=== PATIENT | female | born 1945 | race Caucasian/White ===

== ENCOUNTER → 2016-09-24 | Outpatient (CLI) | payer MEDICARE | END | disposition home or self-care (01) | LOC: LABWHC1 12:08 | PROVIDERS: ATTEND Internal Medicine | DX: E03.9 Hypothyroidism, unspecified (principal) | CPT/HCPCS: 36415; 84439; 84443 ==

== ENCOUNTER → 2016-11-28 | Outpatient (CLI) | payer MEDICARE ==
[2016-11-28 11:16] LABS: CH 29.7; CHCM 32.2; HCT 39.9 % (34.0-46.0); HDW 2.15; HGB 12.5 gm/dL (11.4-16.0); MCH 29.1 pg (25.0-35.0); MCHC 31.4 g/dL (31.0-37.0); MCV 92.6 fL (80.0-100.0); Mean Platelet Volume 6.2; RBC 4.31 m/uL (3.80-5.40); RDW 12.5 % (11.5-15.5); WBC 9.3 k/uL (3.8-10.6)
[2016-11-28 11:38] LABS: ALT 28 U/L (9-52); AST 24 U/L (14-36); Alkaline Phosphatase 81 U/L (38-126); Anion Gap 5 mmol/L; Blood Urea Nitrogen 12 mg/dL (7-17); Calcium 9.7 mg/dL (8.4-10.2); Carbon Dioxide 30 mmol/L (22-30); Chloride 107 mmol/L (98-107); Glucose 84 mg/dL (74-99); Non-African American GFR(MDRD) >60 (>60 ml/min/1.73 sqM); Potassium 5.2 mmol/L (3.5-5.1); Sodium 142 mmol/L (137-145); Total Bilirubin 0.4 mg/dL (0.2-1.3)
[2016-11-28 11:56] LABS: Appearance,Urine Clear (Clear); Bilirubin,Urine Negative (Negative); Glucose,Urine (UA) Negative (Negative); Ketones,Urine Negative (Negative); Leukocyte Esterase,Urine Large (Negative); Mucus,Urine Rare /hpf; Nitrite,Urine Negative (Negative); PH, Urine 6.5 (5.0-8.0); Particle Count 2306; Protein,Urine Negative (Negative); RBC,Urine 12 /hpf (0-5); Specific Gravity,Urine 1.008 (1.001-1.035); Squamous Epithelial Cell,Urine 1 /hpf (0-4); UA Billing (MACRO vs. MICRO) MICRO; Urobilinogen,Urine <2.0 mg/dL (<2.0); WBC,Urine 46 /hpf (0-5)
== END | disposition home or self-care (01) ==
LOC: LABWHC1 10:48
PROVIDERS: ATTEND Internal Medicine
DX: R53.82 Chronic fatigue, unspecified (principal); E03.9 Hypothyroidism, unspecified; R35.0 Frequency of micturition
CPT/HCPCS: 36415; 80053; 81001; 84439; 84443; 85027

== ENCOUNTER → 2017-01-31 | Outpatient (CLI) | payer MEDICARE ==
[2017-01-31 07:38] LABS: Blood Urea Nitrogen 12 mg/dL (7-17); Non-African American GFR(MDRD) >60 (>60 ml/min/1.73 sqM)
--- NOTE | 2017-01-31 09:21 | CT ---
EXAMINATION TYPE: CT abdomen pelvis wo/w con DATE OF EXAM: 01/31/2017 8:49 AM COMPARISON: NONE HISTORY: Hydronephrosis and Calculus of Kidney CT DLP: 597.30 mGycm CONTRAST: CT scan of the abdomen and pelvis is performed without and with Oral Contrast and without and with IV Contrast, patient injected with 100 ml mL of Omnipaque 300. FINDINGS: LUNG BASES-: No visible nodule. No infiltrate. Fixed hiatal hernia noted. LIVER/GB: No calcified gallstones. No space occupying hepatic lesion. Biliary tree is of normal ca liber. PANCREAS: No inflammation. No distinct mass. SPLEEN: No splenic enlargement. No lesion seen. ADRENALS: No nodule. No thickening. KIDNEYS/BLADDER: No hydronephrosis. Staghorn type calculus mid pole of the left kidney measures 1.4 cm in greatest dimension. There is no evidence for obstruction. No disctinct renal mass. Urinary blad waleska grossly unremarkable. BOWEL: Normal appendix. Normal bowel caliber. No inflammation. Moderate fecal stasis noted. GENITAL ORGANS: Hysterectomy changes identified. LYMPH NODES: No greater than 1cm abdominal or pelvic lymph nodes are appreciated. AORTA: No significant abnormality. OSSEOUS STRUCTURES: No significant abnormality is seen. OTHER: No significant additional abnormality is seen. IMPRESSION: 1. Nonobstructing staghorn calculus left kidney. 2. Fixed hiatal hernia. 3 moderate fecal stasis.
== END ==
LOC: RADCTMAIN 06:38
PROVIDERS: ATTEND Urology
DX: N20.0 Calculus of kidney (principal); K44.9 Diaphragmatic hernia without obstruction or gangrene
CPT/HCPCS: 82565; 84520; 74178; 36415; Q9967

== ENCOUNTER → 2017-02-18 | Outpatient (CLI) | payer MEDICARE ==
[2017-02-18 14:23] LABS: Anion Gap 9 mmol/L; Blood Urea Nitrogen 9 mg/dL (7-17); Carbon Dioxide 23 mmol/L (22-30); Chloride 109 mmol/L (98-107); Non-African American GFR(MDRD) >60 (>60 ml/min/1.73 sqM); Potassium 3.8 mmol/L (3.5-5.1); Sodium 141 mmol/L (137-145)
== END | disposition home or self-care (01) ==
LOC: LABWHC1 13:53
PROVIDERS: ATTEND Internal Medicine
DX: E03.9 Hypothyroidism, unspecified (principal); E87.5 Hyperkalemia; N20.0 Calculus of kidney
CPT/HCPCS: 36415; 80051; 82565; 84439; 84443; 84520

== ENCOUNTER → 2017-03-04 | Outpatient (CLI) | payer MEDICARE ==
[2017-03-04 10:55] LABS: EKG EKG PERFORMED
[2017-03-04 11:30] LABS: Blood Urea Nitrogen 11 mg/dL (7-17); Non-African American GFR(MDRD) >60 (>60 ml/min/1.73 sqM)
[2017-03-04 11:33] LABS: CHCM 32.7; HGB 12.9 gm/dL (11.4-16.0); MCH 28.9 pg (25.0-35.0); MCHC 31.4 g/dL (31.0-37.0); MCV 92.2 fL (80.0-100.0); Mean Platelet Volume 6.5; RBC 4.44 m/uL (3.80-5.40); RDW 12.5 % (11.5-15.5); WBC 9.1 k/uL (3.8-10.6); WBC (Perox) 8.95
[2017-03-04 14:22] LABS: Add Differential Manual Differential
[2017-03-04 14:25] LABS: Nucleated Red Blood Cells 0 /100 WBC (0-0); Total Cells Counted 200
== END | disposition home or self-care (01) ==
LOC: LABWHC1 10:48
PROVIDERS: ATTEND Urology
DX: N20.0 Calculus of kidney (principal)
CPT/HCPCS: 36415; 82565; 84520; 85025; 93005

== ENCOUNTER → 2017-03-15 | Outpatient (CLI) | payer MEDICARE ==
--- NOTE | 2017-03-15 09:39 | XR ---
EXAMINATION TYPE: XR abdomen 1V , ONE VIEW DATE OF EXAM ORDERED: 03/15/2017 HISTORY: N20.0 L renal calculus. COMPARISON: Previous study dated 04/06/2014. FINDINGS: Calculus overlying the mid polar region of the left kidney is again identified. It measure s 5.8 mm. Previously measured 4.4 mm. No other definite renal calculi are seen. There is a stable phl eboliths within the right hemipelvis. There is an injection granuloma overlying the iliac spine on th e right. IMPRESSION: LEFT-SIDED NEPHROLITHIASIS.
== END | disposition home or self-care (01) ==
LOC: RADXRMAIN 09:17
PROVIDERS: ATTEND Urology
DX: N20.0 Calculus of kidney (principal)
CPT/HCPCS: 74000

== ENCOUNTER → 2017-06-21 | Outpatient (CLI) | payer MEDICARE ==
[2017-06-21 10:28] LABS: CH 27.5; CHCM 31.9; HCT 37.9 % (34.0-46.0); HGB 12.5 gm/dL (11.4-16.0); MCH 28.5 pg (25.0-35.0); MCHC 32.9 g/dL (31.0-37.0); MCV 86.7 fL (80.0-100.0); Mean Platelet Volume 6.4; RBC 4.37 m/uL (3.80-5.40); RDW 12.2 % (11.5-15.5); WBC 7.5 k/uL (3.8-10.6)
[2017-06-21 10:48] LABS: ALT 28 U/L (9-52); AST 21 U/L (14-36); Alkaline Phosphatase 94 U/L (38-126); Anion Gap 9 mmol/L; Blood Urea Nitrogen 11 mg/dL (7-17); Calcium 9.6 mg/dL (8.4-10.2); Carbon Dioxide 26 mmol/L (22-30); Chloride 106 mmol/L (98-107); Cholesterol 195 mg/dL (<200); Glucose 76 mg/dL (74-99); HDL Cholesterol 60 mg/dL (40-60); Non-African American GFR(MDRD) >60 (>60 ml/min/1.73 sqM); Potassium 4.5 mmol/L (3.5-5.1); Sodium 141 mmol/L (137-145); Total Bilirubin 0.4 mg/dL (0.2-1.3)
== END | disposition home or self-care (01) ==
LOC: LABWHC1 09:05
PROVIDERS: ATTEND Internal Medicine
DX: Z00.00 Encounter for general adult medical examination without abnormal findings (principal); E78.2 Mixed hyperlipidemia; E03.9 Hypothyroidism, unspecified; K21.0 Gastro-esophageal reflux disease with esophagitis
CPT/HCPCS: 36415; 80053; 80061; 84439; 84443; 85027

== ENCOUNTER → 2018-01-02 | Outpatient (CLI) | payer MEDICARE ==
[2018-01-02 09:33] LABS: HCT 38.2 % (34.0-46.0); MCH 28.3 pg (25.0-35.0); MCHC 31.4 g/dL (31.0-37.0); Mean Platelet Volume 6.8; Platelet Count 400 k/uL (150-450); RBC 4.25 m/uL (3.80-5.40); RDW 12.6 % (11.5-15.5); WBC 7.7 k/uL (3.8-10.6)
[2018-01-02 09:56] LABS: ALT 23 U/L (9-52); AST 25 U/L (14-36); Albumin 4.1 g/dL (3.5-5.0); Alkaline Phosphatase 92 U/L (38-126); Anion Gap 11 mmol/L; Blood Urea Nitrogen 14 mg/dL (7-17); Calcium 9.7 mg/dL (8.4-10.2); Carbon Dioxide 29 mmol/L (22-30); Chloride 104 mmol/L (98-107); Glucose 87 mg/dL (74-99); Potassium 4.6 mmol/L (3.5-5.1); Sodium 144 mmol/L (137-145); Total Bilirubin 0.4 mg/dL (0.2-1.3); Total Protein 6.8 g/dL (6.3-8.2)
[2018-01-02 10:06] LABS: T4, Free (Free Thyroxine) 0.91 ng/dL (0.78-2.19)
== END | disposition home or self-care (01) ==
LOC: LABWHC1 09:02
PROVIDERS: ATTEND Internal Medicine
DX: E03.9 Hypothyroidism, unspecified (principal); R53.82 Chronic fatigue, unspecified
CPT/HCPCS: 36415; 80053; 84439; 84443; 85027

== ENCOUNTER → 2018-07-11 | Outpatient (CLI) | payer MEDICARE ==
[2018-07-11 11:44] LABS: HCT 39.8 % (34.0-46.0); HGB 12.8 gm/dL (11.4-16.0); MCH 29.5 pg (25.0-35.0); MCHC 32.2 g/dL (31.0-37.0); MCV 91.8 fL (80.0-100.0); Mean Platelet Volume 6.2; Platelet Count 395 k/uL (150-450); RBC 4.34 m/uL (3.80-5.40); RDW 12.3 % (11.5-15.5); WBC 10.2 k/uL (3.8-10.6)
[2018-07-11 15:45] LABS: Albumin 4.5 g/dL (3.80-4.90); Albumin/Globulin Ratio 2.05 (1.20-2.10); Anion Gap 9.6 mmol/L (4.00-12.00); Calcium 9.5 mg/dL (8.7-10.3); Carbon Dioxide 24.4 mmol/L (21.6-31.8); Globulin 2.2 g/dL (2.1-3.7); LDL Cholesterol,Calculated 118.6 mg/dL (0.0-131.0); Potassium 4.1 mmol/L (3.5-5.5); Total Bilirubin 0.5 mg/dL (0.2-1.2); Total Protein 6.7 g/dL (6.2-8.2); VLDL Calculation 27.4 mg/dL (5.00-40.00)
[2018-07-11 15:55] LABS: T4, Free (Free Thyroxine) 1.3 ng/dL (0.80-1.80)
--- NOTE | 2018-07-11 16:31 | XR ---
EXAMINATION TYPE: XR chest 2V DATE OF EXAM: 07/11/2018 COMPARISON: None INDICATION: Cough TECHNIQUE: Frontal and lateral views of the chest are obtained. FINDINGS: The heart size is normal. The pulmonary vasculature is normal. The lungs are clear. IMPRESSION: 1. No acute pulmonary process.
== END ==
LOC: LABWHC1 10:22
PROVIDERS: ATTEND Internal Medicine
DX: R05 Cough (principal); E78.2 Mixed hyperlipidemia; E03.9 Hypothyroidism, unspecified; K21.0 Gastro-esophageal reflux disease with esophagitis; Z00.00 Encounter for general adult medical examination without abnormal findings
CPT/HCPCS: 36415; 71046; 80053; 80061; 84439; 85027

== ENCOUNTER → 2018-07-15 | Outpatient (CLI) | payer MEDICARE | END | disposition home or self-care (01) | LOC: LABWHC1 15:13 | PROVIDERS: ATTEND Internal Medicine | DX: Z53.9 Procedure and treatment not carried out, unspecified reason (principal) ==

== ENCOUNTER → 2018-07-17 | Outpatient (CLI) | payer MEDICARE | END | disposition home or self-care (01) | LOC: LABWHC1 15:33 | PROVIDERS: ATTEND Internal Medicine | DX: Z00.00 Encounter for general adult medical examination without abnormal findings (principal); E78.2 Mixed hyperlipidemia; E03.9 Hypothyroidism, unspecified; K21.0 Gastro-esophageal reflux disease with esophagitis; R05 Cough | CPT/HCPCS: 36415; 82272 ==

== ENCOUNTER → 2018-09-29 | Outpatient (CLI) | payer MEDICARE ==
--- NOTE | 2018-10-04 10:45 | MM ---
Reason for exam: screening (asymptomatic). Last mammogram was performed 3 years and 6 months ago. History: Patient is postmenopausal. Family history of breast cancer in aunt at age 70. MG 3D Screening Mammo W/Cad Bilateral CC and MLO view(s) were taken. Prior study comparison: April 07, 2015, bilateral MG screening mammo w CAD. April 06, 2014, bilateral MG screening mammo w CAD. There are scattered fibroglandular densities. There are benign round vascular bilateral breast calcifications. No discrete abnormality. ASSESSMENT: Benign, BI-RAD 2 RECOMMENDATION: Routine screening mammogram of both breasts in 1 year.
== END | disposition home or self-care (01) ==
LOC: RADMAMWWP 15:05
PROVIDERS: ATTEND Internal Medicine
DX: Z12.31 Encounter for screening mammogram for malignant neoplasm of breast (principal)
CPT/HCPCS: 77063; 77067

== ENCOUNTER → 2019-02-10 | Outpatient (CLI) | payer MEDICARE ==
[2019-02-10 16:04] LABS: LDL Cholesterol,Calculated 55.6 mg/dL (0.0-131.0); VLDL Calculation 24.4 mg/dL (5.00-40.00)
== END ==
LOC: LABWHC1 10:57
PROVIDERS: ATTEND Internal Medicine
DX: E78.2 Mixed hyperlipidemia (principal)
CPT/HCPCS: 36415; 80061; 82550; 84450; 84460

== ENCOUNTER → 2019-02-11 | Outpatient (CLI) | payer MEDICARE ==
--- NOTE | 2019-02-11 10:24 | BD ---
EXAMINATION TYPE: Axial Bone Density DATE OF EXAM: 02/11/2019 COMPARISON: NONE CLINICAL HISTORY: Postmenopausal female. Osteoporosis screening. Height: 4' 9 Weight: 109 FRAX RISK QUESTIONS: Family History (Parent hip fracture): y Secondary Osteoporosis: 3. Menopause before 45: y RISK FACTORS HISTORY OF: Family History of Osteoporosis: y Postmenopausal woman: y Lost more than 2 inches in height since high school: y MEDICATIONS: Thyroid Medications: Which medication: Synthroid How Lon year Additional Medications: cholesterol Additional History: EXAM MEASUREMENTS: Bone mineral densitometry was performed using the [employer] System. Bone mineral density as measured about the Lumbar spine is: ----- L1-L4(G/cm2): 0.864 T Score Values are as follows: ----- L2: -3.1 ----- L3: -2.5 ----- L4: -2.0 ----- L1-L4: -2.6 Bone mineral density about the R hip (g/cm2): 0.605 Bone mineral density about the L hip (g/cm2):0.584 T Score values are as follows: -----R Neck: -3.1 -----L Neck: -3.3 -----R Total: -2.7 -----L Total: -2.6 IMPRESSION: Osteoporosis (T Score less than -2.5). There is increased fracture risk and therapy is usually indicated based on age. Re-Screen 1-2 years. NOTE: T-SCORE=SD OF THE YOUNG ADULT MEAN.
== END | disposition home or self-care (01) ==
LOC: RADBDWWP 07:21
PROVIDERS: ATTEND Internal Medicine
DX: M81.0 Age-related osteoporosis without current pathological fracture (principal)
CPT/HCPCS: 77080

== ENCOUNTER → 2019-04-03 | Outpatient (CLI) | payer MEDICARE ==
--- NOTE | 2019-04-03 12:15 | XR ---
EXAMINATION TYPE: XR Hip Complete LT DATE OF EXAM: 04/03/2019 CLINICAL HISTORY: Left hip and back pain TECHNIQUE: AP and frogleg views of the left hip are obtained. COMPARISON: None. FINDINGS: There is no acute fracture/dislocation evident in the left hip. The joint space in the le ft hip the mastoid moderate acetabular arthropathy as there are small subchondral cysts, acetabular s clerosis and cephalad joint space narrowing. The overlying soft tissue appears unremarkable. IMPRESSION: There is no acute fracture or dislocation in the left hip. Moderate left femoral acetabu lar arthropathy.
--- NOTE | 2019-04-03 12:21 | XR ---
EXAMINATION TYPE: XR lumbosacral spine min 4V DATE OF EXAM: 04/03/2019 CLINICAL HISTORY: Low back pain TECHNIQUE: Frontal, lateral, and oblique images of the lumbar spine are obtained. COMPARISON: None FINDINGS: There are 5 lumbar type vertebral bodies identified. The lumbar spine shows satisfactory alignment without evidence of acute fracture. Vertebral body heights are maintained. Intervertebral d isc space narrowing is seen at L4-L5 with multilevel facet arthropathy. Grade 1 anterolisthesis is pr esent at L4-L5, likely due to hypertrophic facet change. Mild levoscoliosis is noted The oblique imag es appear within normal limits. The overlying soft tissue appears unremarkable. IMPRESSION: 1. No acute fracture is seen in the lumbar spine. 2. Grade 1 anterolisthesis of L4 on L5 is likely due to hypertrophic facet change. 3. Mild levoscoliosis of the lumbar spine. 4. Mild multilevel degenerative disc disease of the lumbar spine.
--- NOTE | 2019-04-03 12:22 | XR ---
EXAMINATION TYPE: XR sacroiliac joint comp BILAT DATE OF EXAM: 04/03/2019 CLINICAL HISTORY: Low back pain TECHNIQUE: A single AP view of the pelvis is obtained. COMPARISON: None. FINDINGS: There is no acute fracture/dislocation evident in the visualized pelvis. The hip and sacr oiliac joints appear symmetric and demonstrate very minimal degenerative change with opposing surface sclerosis. The overlying soft tissue appears unremarkable. IMPRESSION: There is no acute fracture or dislocation in the visualized pelvis. Minimal symmetric de generative changes of the sacroiliac joints.
[2019-04-03 17:16] LABS: Anion Gap 5.9 mmol/L (4.00-12.00); BUN/Creat Ratio 17.14 Ratio (12.00-20.00); Calcium 9.9 mg/dL (8.7-10.3); Carbon Dioxide 30.1 mmol/L (21.6-31.8); Magnesium 2.2 mg/dL (1.5-2.4); Phosphorus 3.7 mg/dL (2.4-5.1); Potassium 5.1 mmol/L (3.5-5.5)
== END | disposition home or self-care (01) ==
LOC: LABWHC1 09:59
PROVIDERS: ATTEND Internal Medicine
DX: M51.36 Other intervertebral disc degeneration, lumbar region (principal); M41.86 Other forms of scoliosis, lumbar region; M16.12 Unilateral primary osteoarthritis, left hip; M53.3 Sacrococcygeal disorders, not elsewhere classified; E21.3 Hyperparathyroidism, unspecified; M81.0 Age-related osteoporosis without current pathological fracture
CPT/HCPCS: 36415; 72110; 72202; 73502; 80048; 83735; 83970; 84100

== ENCOUNTER → 2019-04-15 | Outpatient (CLI) | payer MEDICARE ==
[~2019-04-15] MED LIST: EPINEPHrine 1 MG/ML 1 ML AMP SQ PRN; HYDROCORTISONE SUCCINATE 100 MG/2 ML VIAL IV PRN; SODIUM CHLORIDE 0.9% 500 ML 500 ML IV PRN; SODIUM CHLORIDE 0.9% 500 ML 500 ML in EMPTY BAG 1 BAG IV PRN; ZOLEDRONIC ACID 5 MG in SODIUM CHLORIDE 0.9% 100 ML IV NR; diphenhydrAMINE 50 MG/ML 1 ML VIAL IVP PRN
[2019-04-15 11:08] VITALS: BP 125/87; PULSE 87; RESP 16; TEMP 98.4
== END | disposition home or self-care (01) ==
LOC: PROCWHC3 10:52
PROVIDERS: ATTEND Internal Medicine
DX: M81.0 Age-related osteoporosis without current pathological fracture (principal)
CPT/HCPCS: 96365; J3489

== ENCOUNTER → 2019-08-17 | Outpatient (CLI) | payer MEDICARE ==
[2019-08-17 18:54] LABS: Chol/HDL Ratio 2.09; LDL Cholesterol,Calculated 49.2 mg/dL (0.0-131.0); VLDL Calculation 21.8 mg/dL (5.00-40.00)
== END | disposition home or self-care (01) ==
LOC: LABWHC1 12:19
PROVIDERS: ATTEND Internal Medicine
DX: E78.5 Hyperlipidemia, unspecified (principal)
CPT/HCPCS: 36415; 80061; 84450; 84460

== ENCOUNTER → 2020-04-07 | Outpatient (CLI) | payer MEDICARE ==
[2020-04-07 12:00] LABS: Basophils % (A) 1 %; Eosinophils # (A) 0.2 k/uL (0-0.7); Eosinophils % (A) 2 %; HCT 39.2 % (34.0-46.0); HGB 12.4 gm/dL (11.4-16.0); Lymphocytes # (A) 2.7 k/uL (1.0-4.8); Lymphocytes % (A) 37 %; MCHC 31.7 g/dL (31.0-37.0); MCV 91.6 fL (80.0-100.0); Monocytes # (A) 0.3 k/uL (0-1.0); Monocytes % (A) 3 %; Neutrophils # (A) 4.1 k/uL (1.3-7.7); Neutrophils % (A) 55 %; Platelet Count 300 k/uL (150-450); RBC 4.28 m/uL (3.80-5.40); RDW 12.8 % (11.5-15.5); WBC 7.3 k/uL (3.8-10.6)
--- NOTE | 2020-04-07 12:35 | XR ---
EXAMINATION TYPE: XR chest 2V DATE OF EXAM: 04/07/2020 COMPARISON: Prior chest x-ray 07/11/2018 HISTORY: Cough, smoker TECHNIQUE: Frontal and lateral views of the chest are obtained. FINDINGS: There is no focal air space opacity, pleural effusion, or pneumothorax seen. The cardiac silhouette size is within normal limits. Retrocardiac density with central lucency consistent with h iatal hernia and is stable. There is stable elevation of the right hemidiaphragm. The osseous structu res are intact. IMPRESSION: No acute cardiopulmonary process.
[2020-04-07 17:22] LABS: ALT 16 U/L (8-44); AST 22 U/L (13-35); African American GFR (CKD) 105.5 (60.0-200.0); Alkaline Phosphatase 85 U/L (41-126); C Reactive Protein <0.4 mg/dL (0.0-0.8); Calcium 9.2 mg/dL (8.7-10.3); Carbon Dioxide 27.7 mmol/L (21.6-31.8); Chloride 109 mmol/L (96-109); Chol/HDL Ratio 2.35; Cholesterol 122 mg/dL (0-200); Creatine Kinase 53 U/L (26-186); Globulin 2.1 g/dL (1.6-3.3); Glucose 93 mg/dL (70-110); Magnesium 2.1 mg/dL (1.5-2.4); Non-African American GFR(CKD) 91.1 (60.0-200.0); Potassium 4.4 mmol/L (3.5-5.5); Sodium 141 mmol/L (135-145); Total Bilirubin 0.5 mg/dL (0.3-1.2); Total Protein 6.1 g/dL (6.2-8.2)
[2020-04-07 19:57] LABS: Erythrocyte Sedimentation Rate 14 mm/Hr (0-30)
== END | disposition home or self-care (01) ==
LOC: LABWHC1 10:29
PROVIDERS: ATTEND Internal Medicine
DX: R05 Cough (principal); D64.9 Anemia, unspecified; J44.9 Chronic obstructive pulmonary disease, unspecified; E78.5 Hyperlipidemia, unspecified; E03.9 Hypothyroidism, unspecified; M81.0 Age-related osteoporosis without current pathological fracture; E55.9 Vitamin D deficiency, unspecified; K58.9 Irritable bowel syndrome, unspecified
CPT/HCPCS: 36415; 71046; 80053; 80061; 82550; 83735; 84100; 84439; 84443; 85025; 85652; 86140

== ENCOUNTER → 2020-04-26 | Outpatient (CLI) | payer MEDICARE ==
--- NOTE | 2020-04-26 18:00 | ECHOF ---
Referral Reason:Abnormal EKG R94.31 MEASUREMENTS -------- HEIGHT: 147.3 cm WEIGHT: 51.3 kg BP: 121/85 RVIDd: 2.9 cm (< 3.3) IVSd: 0.8 cm (0.6 - 1.1) LVIDd: 3.9 cm (3.9 - 5.3) LVPWd: 0.9 cm (0.6 - 1.1) IVSs: 1.4 cm LVIDs: 2.1 cm LVPWs: 1.5 cm LA Diam: 3.2 cm (2.7 - 3.8) Ao Diam: 2.5 cm (2.0 - 3.7) AV Cusp: 1.9 cm (1.5 - 2.6) MV EXCURSION: 15.792 mm (> 18.000) MV EF SLOPE: 99 mm/s (70 - 150) EPSS: 0.3 cm MV E Luis: 0.69 m/s MV DecT: 224 ms MV A Luis: 0.91 m/s MV E/A Ratio: 0.76 RAP: 5.00 mmHg RVSP: 26.87 mmHg FINDINGS -------- Sinus rhythm. This was a technically good study. The left ventricular size is normal. Left ventricular wall thickness is normal. Overall left vent ricular systolic function is normal with, an EF between 60 - 65 %. The right ventricle is normal in size. Normal LA size by volume 22+/-6 ml/m2. The right atrium is normal in size. Lipomatous Hypertrophy of the atrial septum is present The aortic valve is trileaflet and appears structurally normal. There is trace to mild mitral regurgitation. Mild tricuspid regurgitation present. Right ventricular systolic pressure is normal at < 35 mmHg. Trace/mild (physiologic) pulmonic regurgitation. The aortic root size is normal. Normal inferior vena cava with normal inspiratory collapse consistent with estimated right atrial pre ssure of 5 mmHg. There is no pericardial effusion. CONCLUSIONS -------- 1. The left ventricular size is normal. 2. Left ventricular wall thickness is normal. 3. Overall left ventricular systolic function is normal with, an EF between 60 - 65 %. 4. Lipomatous Hypertrophy of the atrial septum is present 5. There is trace to mild mitral regurgitation. 6. Mild tricuspid regurgitation present. 7. Trace/mild (physiologic) pulmonic regurgitation. 8. There is no pericardial effusion. [employer]: Abida Newman RDCS
== END | disposition home or self-care (01) ==
LOC: RADECHMAIN 13:59
PROVIDERS: ATTEND Internal Medicine
DX: I08.2 Rheumatic disorders of both aortic and tricuspid valves (principal); I08.8 Other rheumatic multiple valve diseases
CPT/HCPCS: 93306

== ENCOUNTER → 2020-06-24 | Outpatient (CLI) | payer MEDICARE ==
--- NOTE | 2020-06-28 11:53 | MM ---
Reason for exam: screening (asymptomatic). Last mammogram was performed 1 year and 9 months ago. History: Patient is postmenopausal. Family history of breast cancer in aunt at age 70 and breast cancer in cousin at age 48. Took estrogen for 10 years beginning at age 36. Physical Findings: A clinical breast exam by your physician is recommended on an annual basis and results should be correlated with mammographic findings. MG 3D Screening Mammo W/Cad Bilateral CC and MLO view(s) were taken. Prior study comparison: September 29, 2018, bilateral MG 3d screening mammo w/cad. April 07, 2015, bilateral MG screening mammo w CAD. There are scattered fibroglandular densities. There are benign appearing vascular calcifications bilaterally. No significant changes when compared with prior studies. ASSESSMENT: Benign, BI-RAD 2 RECOMMENDATION: Routine screening mammogram of both breasts in 1 year.
== END | disposition home or self-care (01) ==
LOC: RADMAMWWP 14:03
PROVIDERS: ATTEND Internal Medicine
DX: Z12.31 Encounter for screening mammogram for malignant neoplasm of breast (principal)
CPT/HCPCS: 77063; 77067

== ENCOUNTER → 2020-10-05 | Outpatient (CLI) | payer MEDICARE ==
[2020-10-05 14:07] LABS: Appearance,Urine Clear (Clear); Bilirubin,Urine Negative (Negative); Blood,Urine Small (Negative); Color,Urine Light Yellow; Glucose,Urine (UA) Negative (Negative); Ketones,Urine Negative (Negative); Leukocyte Esterase,Urine Trace (Negative); Nitrite,Urine Negative (Negative); Protein,Urine Negative (Negative); RBC,Urine 2 /hpf (0-5); Specific Gravity,Urine 1.007 (1.001-1.035); Squamous Epithelial Cell,Urine <1 /hpf (0-4); Urobilinogen,Urine <2.0 mg/dL (<2.0); WBC,Urine 3 /hpf (0-5)
[2020-10-05 22:39] LABS: Creatinine,Urine Random 54.2 mg/dL
[2020-10-05 23:07] LABS: Total Protein,Urine Random 7.2 mg/dL (0.0-13.5)
== END | disposition home or self-care (01) ==
LOC: LABWHC1 10:55
PROVIDERS: ATTEND Internal Medicine
DX: N39.0 Urinary tract infection, site not specified (principal)
CPT/HCPCS: 81001; 82570; 84156; 87086

== ENCOUNTER → 2020-10-21 | Outpatient (CLI) | payer MEDICARE ==
--- NOTE | 2020-10-21 15:40 | US ---
EXAMINATION TYPE: US kidneys/renal and bladder DATE OF EXAM: 10/21/2020 COMPARISON: NONE CLINICAL HISTORY: R31.1 Microhematuria. Bladder infections and hematuria EXAM MEASUREMENTS: Right Kidney: 8.3 x 3.8 x 4.0 cm Left Kidney: 8.3 x 4.8 x 3.8 cm Right Kidney: No hydronephrosis or masses seen Left Kidney: No hydronephrosis or masses seen Bladder: wnl Bilateral Jets seen: Yes There is no evidence for hydronephrosis at this point in time. No nephrolithiasis is seen. No colby s are identified. The urinary bladder is anechoic. Bilateral ureteral jets are seen. IMPRESSION: No distinct abnormality seen.
== END | disposition home or self-care (01) ==
LOC: RADUSWWP 14:41
PROVIDERS: ATTEND Urology
DX: R31.1 Benign essential microscopic hematuria (principal)
CPT/HCPCS: 76770

== ENCOUNTER → 2020-11-07 | Outpatient (CLI) | payer MEDICARE ==
--- NOTE | 2020-11-07 15:32 | XR ---
EXAMINATION TYPE: XR chest 2V DATE OF EXAM: 11/07/2020 COMPARISON: 04/07/2020 HISTORY: 75 year-old female shortness of breath, smoking TECHNIQUE: PA and lateral views FINDINGS: The cardiomediastinal silhouette, aorta, and pulmonary vasculature are within normal limits. Rounded retrocardiac density. Otherwise, lungs and pleural spaces are clear. IMPRESSION: 1. Rounded retrocardiac density suggests a moderate-sized hiatal hernia. Correlate with patient's sym ptoms, such as heartburn/reflux. 2. No acute cardiopulmonary process.
[2020-11-07 19:58] LABS: Basophils # (A) 0.04 X 10*3/uL (0.00-0.10); Basophils % (A) 0.5 %; Eosinophils # (A) 0.11 X 10*3/uL (0.04-0.35); Eosinophils % (A) 1.3 %; HCT 38.1 % (37.2-46.3); HGB 12.1 g/dL (12.0-15.0); Lymphocytes # (A) 3.08 X 10*3/uL (0.90-5.00); Lymphocytes % (A) 35.7 %; MCH 29.4 pg (27.0-32.0); MCHC 31.8 g/dL (32.0-37.0); MCV 92.5 fL (80.0-97.0); Mean Platelet Volume 10.3 fL (9.5-12.2); Monocytes # (A) 0.37 X 10*3/uL (0.20-1.00); Monocytes % (A) 4.3 %; Neutrophils # (A) 5.02 X 10*3/uL (1.80-7.70); Neutrophils % (A) 58.1 %; Platelet Count 302 X 10*3/uL (140-440); RBC 4.12 X 10*6/uL (4.10-5.20); RDW 12.4 % (11.5-14.5); WBC 8.63 X 10*3/uL (4.50-10.00)
[2020-11-07 22:04] LABS: ALT 21 U/L (8-44); AST 24 U/L (13-35); African American GFR (CKD) 99.6 (60.0-200.0); Albumin/Globulin Ratio 1.41 (1.60-3.17); Alkaline Phosphatase 85 U/L (41-126); BUN/Creat Ratio 15.71 Ratio (12.00-20.00); C Reactive Protein <0.4 mg/dL (0.0-0.8); Calcium 9.2 mg/dL (8.7-10.3); Carbon Dioxide 28.4 mmol/L (21.6-31.8); Chloride 107 mmol/L (96-109); Chol/HDL Ratio 2.43; Cholesterol 136 mg/dL (0-200); Creatine Kinase 51 U/L (26-186); Globulin 2.9 g/dL (1.6-3.3); Glucose 87 mg/dL (70-110); Potassium 3.8 mmol/L (3.5-5.5); Sodium 142 mmol/L (135-145); Total Bilirubin 0.7 mg/dL (0.3-1.2)
[2020-11-08 04:39] LABS: Erythrocyte Sedimentation Rate 12 mm/Hr (0-30)
== END ==
LOC: LABWHC1 11:38
PROVIDERS: ATTEND Internal Medicine
DX: E78.5 Hyperlipidemia, unspecified (principal); E55.9 Vitamin D deficiency, unspecified; E03.9 Hypothyroidism, unspecified; D64.9 Anemia, unspecified; J44.9 Chronic obstructive pulmonary disease, unspecified; E87.8 Other disorders of electrolyte and fluid balance, not elsewhere classified
CPT/HCPCS: 36415; 71046; 80053; 80061; 82306; 82550; 84439; 84443; 85025; 85652; 86140

== ENCOUNTER → 2020-12-30 | Outpatient (CLI) | payer MEDICARE ==
--- NOTE | 2020-12-30 17:28 | XR ---
EXAMINATION TYPE: XR chest 2V DATE OF EXAM: 12/30/2020 COMPARISON: 11/07/2020 HISTORY: 75-year-old female pneumonia, bronchitis, cough for 2 days TECHNIQUE: PA and lateral views FINDINGS: The cardiomediastinal silhouette, aorta, and pulmonary vasculature are within normal limits. Lungs an d pleural spaces are clear. There is at least a moderate-sized hernia with retrocardiac lucency. IMPRESSION: No acute cardiopulmonary process. At least a moderate-sized hiatal hernia. Correlate for any associat ed symptoms.
[2020-12-30 23:12] LABS: Basophils # (A) 0.02 X 10*3/uL (0.00-0.10); Basophils % (A) 0.3 %; Eosinophils # (A) 0.14 X 10*3/uL (0.04-0.35); Eosinophils % (A) 1.8 %; HCT 35.4 % (37.2-46.3); HGB 11.3 g/dL (12.0-15.0); Lymphocytes # (A) 3.81 X 10*3/uL (0.90-5.00); Lymphocytes % (A) 48.6 %; MCH 29.2 pg (27.0-32.0); MCHC 31.9 g/dL (32.0-37.0); MCV 91.5 fL (80.0-97.0); Mean Platelet Volume 10.4 fL (9.5-12.2); Monocytes # (A) 0.34 X 10*3/uL (0.20-1.00); Monocytes % (A) 4.3 %; Neutrophils # (A) 3.52 X 10*3/uL (1.80-7.70); Neutrophils % (A) 44.9 %; Platelet Count 274 X 10*3/uL (140-440); RBC 3.87 X 10*6/uL (4.10-5.20); RDW 12.2 % (11.5-14.5); WBC 7.84 X 10*3/uL (4.50-10.00)
== END | disposition home or self-care (01) ==
LOC: LABWHC1 15:02
PROVIDERS: ATTEND Internal Medicine
DX: J18.9 Pneumonia, unspecified organism (principal); R05 Cough
CPT/HCPCS: 36415; 71046; 85025

== ENCOUNTER → 2021-03-30 | Outpatient (CLI) | payer MEDICARE ==
[~2021-03-30] MED LIST changes: -EPINEPHrine 1 MG/ML 1 ML AMP SQ PRN; -HYDROCORTISONE SUCCINATE 100 MG/2 ML VIAL IV PRN; -SODIUM CHLORIDE 0.9% 500 ML 500 ML IV PRN; -diphenhydrAMINE 50 MG/ML 1 ML VIAL IVP PRN
[2021-03-30 14:41] VITALS: RESP 16; TEMP 98.4
[2021-03-30 15:19] VITALS: BP 145/85; PULSE 76
== END ==
LOC: PROCWHC3 14:25
PROVIDERS: ATTEND Internal Medicine
DX: M81.0 Age-related osteoporosis without current pathological fracture (principal); F17.200 Nicotine dependence, unspecified, uncomplicated
CPT/HCPCS: 96365; J3489

== ENCOUNTER → 2021-04-26 | Outpatient (CLI) | payer MEDICARE ==
[2021-04-26 20:33] LABS: Basophils # (A) 0.04 X 10*3/uL (0.00-0.10); Basophils % (A) 0.5 %; Eosinophils % (A) 1.3 %; HGB 11.7 g/dL (12.0-15.0); Lymphocytes # (A) 3.15 X 10*3/uL (0.90-5.00); Lymphocytes % (A) 42.1 %; MCH 28.7 pg (27.0-32.0); MCHC 31.6 g/dL (32.0-37.0); MCV 90.7 fL (80.0-97.0); Mean Platelet Volume 10.1 fL (9.5-12.2); Monocytes # (A) 0.31 X 10*3/uL (0.20-1.00); Monocytes % (A) 4.1 %; Neutrophils # (A) 3.87 X 10*3/uL (1.80-7.70); Neutrophils % (A) 51.7 %; Platelet Count 349 X 10*3/uL (140-440); RBC 4.08 X 10*6/uL (4.10-5.20); RDW 12.6 % (11.5-14.5); WBC 7.49 X 10*3/uL (4.50-10.00)
[2021-04-26 22:37] LABS: % Iron Saturation 23.19 (12.00-45.00); ALT 13 U/L (8-44); AST 18 U/L (13-35); African American GFR (CKD) 73.5 (60.0-200.0); Albumin/Globulin Ratio 1.87 (1.60-3.17); Alkaline Phosphatase 84 U/L (41-126); BUN/Creat Ratio 12.22 Ratio (12.00-20.00); C Reactive Protein <0.4 mg/dL (0.0-0.8); Carbon Dioxide 23.2 mmol/L (21.6-31.8); Chloride 109 mmol/L (96-109); Chol/HDL Ratio 2.78; Cholesterol 139 mg/dL (0-200); Creatine Kinase 49 U/L (26-186); Globulin 2.3 g/dL (1.6-3.3); Glucose 105 mg/dL (70-110); Iron 80 ug/dL (50-170); LDL Cholesterol,Calculated 59.6 mg/dL (0.0-131.0); Magnesium 2.1 mg/dL (1.5-2.4); Non-African American GFR(CKD) 63.4 (60.0-200.0); Phosphorus 2.9 mg/dL (2.4-5.1); Potassium 4.3 mmol/L (3.5-5.5); Sodium 141 mmol/L (135-145); Total Bilirubin 0.5 mg/dL (0.3-1.2); Total Iron Binding Capacity 345 ug/dL (228-460); Total Protein 6.6 g/dL (6.2-8.2)
[2021-04-26 23:15] LABS: Erythrocyte Sedimentation Rate 34 mm/Hr (0-30)
== END | disposition home or self-care (01) ==
LOC: LABWHC1 10:42
PROVIDERS: ATTEND Internal Medicine
DX: Z00.00 Encounter for general adult medical examination without abnormal findings (principal); I10 Essential (primary) hypertension; D64.9 Anemia, unspecified; E78.5 Hyperlipidemia, unspecified; E03.9 Hypothyroidism, unspecified; E55.9 Vitamin D deficiency, unspecified
CPT/HCPCS: 36415; 80053; 80061; 82306; 82550; 82728; 83540; 83550; 83735; 84100; 84439; 84443; 85025; 85652; 86140

== ENCOUNTER → 2021-05-16 | Outpatient (CLI) | payer MEDICARE ==
--- NOTE | 2021-05-16 15:18 | XR ---
EXAMINATION TYPE: XR chest 2V DATE OF EXAM: 05/16/2021 COMPARISON: 12/30/2020 INDICATION: Pain in scapular area, short of breath TECHNIQUE: Frontal and lateral views of the chest are obtained. FINDINGS: The heart size is normal. The pulmonary vasculature is normal. The lungs are clear. Osseous structures appear intact. IMPRESSION: 1. No acute pulmonary process.
--- NOTE | 2021-05-16 15:19 | XR ---
EXAMINATION TYPE: XR thoracic spine complete DATE OF EXAM: 05/16/2021 COMPARISON: None HISTORY: Pain in scapular area TECHNIQUE: 3 view thoracic spine FINDINGS: There are 12 thoracic type vertebral bodies. Pedicles are intact. Disc heights are preserve d. Vertebral body heights are preserved. IMPRESSION: 1. Normal thoracic spine
[2021-05-16 20:57] LABS: Basophils # (A) 0.05 X 10*3/uL (0.00-0.10); Basophils % (A) 0.7 %; Eosinophils # (A) 0.23 X 10*3/uL (0.04-0.35); Eosinophils % (A) 3.1 %; HCT 38.1 % (37.2-46.3); Lymphocytes # (A) 2.84 X 10*3/uL (0.90-5.00); MCH 29.1 pg (27.0-32.0); MCHC 31.5 g/dL (32.0-37.0); MCV 92.3 fL (80.0-97.0); Mean Platelet Volume 9.9 fL (9.5-12.2); Monocytes # (A) 0.39 X 10*3/uL (0.20-1.00); Monocytes % (A) 5.2 %; Neutrophils # (A) 3.95 X 10*3/uL (1.80-7.70); Neutrophils % (A) 52.9 %; Platelet Count 298 X 10*3/uL (140-440); RBC 4.13 X 10*6/uL (4.10-5.20); WBC 7.47 X 10*3/uL (4.50-10.00)
== END | disposition home or self-care (01) ==
LOC: LABWHC1 12:48
PROVIDERS: ATTEND Internal Medicine
DX: M81.0 Age-related osteoporosis without current pathological fracture (principal); J12.9 Viral pneumonia, unspecified; J06.9 Acute upper respiratory infection, unspecified; Z87.891 Personal history of nicotine dependence
CPT/HCPCS: 36415; 71046; 72072; 85025

== ENCOUNTER → 2021-05-30 | Outpatient (CLI) | payer MEDICARE | END | disposition home or self-care (01) | LOC: RADMAMWWP 09:46 | PROVIDERS: ATTEND Internal Medicine | DX: Z53.9 Procedure and treatment not carried out, unspecified reason (principal) ==

== ENCOUNTER → 2021-07-17 | Outpatient (CLI) | payer MEDICARE ==
--- NOTE | 2021-07-18 14:20 | MM ---
Reason for exam: screening (asymptomatic). Last mammogram was performed 1 year and 1 month ago. History: Patient is postmenopausal. Family history of breast cancer in aunt at age 70 and breast cancer in cousin at age 48. Took estrogen for 10 years beginning at age 36. Physical Findings: A clinical breast exam by your physician is recommended on an annual basis and results should be correlated with mammographic findings. MG 3D Screening Mammo W/Cad Bilateral CC and MLO view(s) were taken. Prior study comparison: June 24, 2020, bilateral MG 3d screening mammo w/cad. September 29, 2018, bilateral MG 3d screening mammo w/cad. There are scattered fibroglandular densities. There is chronic nodularity in the left breast. Benign vascular calcifications. No significant changes when compared with prior studies. ASSESSMENT: Benign, BI-RAD 2 RECOMMENDATION: Routine screening mammogram of both breasts in 1 year.
== END | disposition home or self-care (01) ==
LOC: RADMAMWWP 14:59
PROVIDERS: ATTEND Internal Medicine
DX: Z12.31 Encounter for screening mammogram for malignant neoplasm of breast (principal); Z78.0 Asymptomatic menopausal state; Z80.3 Family history of malignant neoplasm of breast
CPT/HCPCS: 77063; 77067

== ENCOUNTER → 2021-11-06 | Outpatient (CLI) | payer MEDICARE ==
[2021-11-06 16:10] LABS: Appearance,Urine Clear (Clear); Bacteria,Urine Rare /hpf; Bilirubin,Urine Negative (Negative); Blood,Urine Trace (Negative); Color,Urine Yellow; Glucose,Urine (UA) Negative (Negative); Ketones,Urine Negative (Negative); Leukocyte Esterase,Urine Small (Negative); Nitrite,Urine Negative (Negative); Protein,Urine Negative (Negative); RBC,Urine 1 /hpf (0-5); Specific Gravity,Urine 1.007 (1.001-1.035); Squamous Epithelial Cell,Urine 1 /hpf (0-4); Urobilinogen,Urine <2.0 mg/dL (<2.0); WBC,Urine 14 /hpf (0-5)
[2021-11-06 23:16] LABS: Basophils # (A) 0.06 X 10*3/uL (0.00-0.10); Basophils % (A) 0.4 %; Eosinophils # (A) 0.04 X 10*3/uL (0.04-0.35); Eosinophils % (A) 0.3 %; HCT 39.4 % (37.2-46.3); HGB 12.3 g/dL (12.0-15.0); Immature Grans, Automated 0.4 %; Lymphocytes # (A) 3.77 X 10*3/uL (0.90-5.00); Lymphocytes % (A) 26.7 %; MCH 29.7 pg (27.0-32.0); MCHC 31.2 g/dL (32.0-37.0); MCV 95.2 fL (80.0-97.0); Mean Platelet Volume 9.8 fL (9.5-12.2); Monocytes # (A) 0.45 X 10*3/uL (0.20-1.00); Monocytes % (A) 3.2 %; NRBC Per 100 WBC 0 /100 WBCS (0.0-0.0); Neutrophils # (A) 9.74 X 10*3/uL (1.80-7.70); Platelet Count 322 X 10*3/uL (140-440); RBC 4.14 X 10*6/uL (4.10-5.20); RDW 12.4 % (11.5-14.5); WBC 14.11 X 10*3/uL (4.50-10.00)
[2021-11-06 23:48] LABS: African American GFR (CKD) 72.9 (60.0-200.0); Anion Gap 11.2 mmol/L (10.00-18.00); BUN/Creat Ratio 12.21 Ratio (12.00-20.00); Calcium 9.2 mg/dL (8.7-10.3); Carbon Dioxide 23.4 mmol/L (20.0-27.5); Magnesium 2.3 mg/dL (1.5-2.4); Non-African American GFR(CKD) 62.9 (60.0-200.0); Potassium 4.1 mmol/L (3.5-5.5); T4, Free (Free Thyroxine) 1.43 ng/dL (0.800-1.800)
== END | disposition home or self-care (01) ==
LOC: LABWHC1 13:27
PROVIDERS: ATTEND Internal Medicine
DX: N39.0 Urinary tract infection, site not specified (principal); E03.9 Hypothyroidism, unspecified; R31.9 Hematuria, unspecified; B96.81 Helicobacter pylori [H. pylori] as the cause of diseases classified elsewhere; K21.9 Gastro-esophageal reflux disease without esophagitis
CPT/HCPCS: 36415; 80048; 81001; 83735; 84439; 84443; 85025; 87086

== ENCOUNTER → 2022-01-16 | Outpatient (CLI) | payer MEDICARE ==
--- NOTE | 2022-01-16 12:08 | CT ---
EXAMINATION TYPE: CT abdomen pelvis w con DATE OF EXAM: 01/16/2022 COMPARISON: CT dated 01/31/2017 HISTORY: Diverticulitis CT DLP: 929 mGycm Automated exposure control for dose reduction was used. TECHNIQUE: Helical acquisition of images was performed from the lung bases through the pelvis. CONTRAST: Performed with Oral Contrast and with IV Contrast, patient injected with 100 mL of Isovue 300. FINDINGS: LUNG BASES: No significant abnormality is appreciated. LIVER/GB: Questionable hepatic steatosis. No definite hepatic focal lesion. Unremarkable gallbladder. PANCREAS: Small and atrophic. 9 mm cyst is seen in the uncinate process of the pancreas, stable since 2017 CT scan and likely representing a simple pancreatic cyst or IPMN. SPLEEN: No significant abnormality is seen. ADRENALS: No significant abnormality is seen. KIDNEYS: No significant abnormality is seen. FREE AIR: No free air is visualized. RETROPERITONEAL ADENOPATHY: None visualized REPRODUCTIVE ORGANS: Previous hysterectomy. No gross adnexal mass. URINARY BLADDER: Faint hyperdensity is seen along the intravesical portion of the left uterovesical junction measuring up to 4 mm which could represent faint calcification versus nonobstructing calculu s. Unremarkable urinary bladder otherwise. PELVIC ADENOPATHY: No pathologically enlarged pelvic lymph nodes. OSSEOUS STRUCTURES: Severe degenerative changes at L4-5 level with grade 2 anterolisthesis of L4 ove r L5 and bilateral facet osteoarthropathy. No aggressive bone lesion. BOWEL: Large sliding hiatal hernia containing probably half of the stomach. Unremarkable duodenum an d small bowel. Colonic diverticulosis without evidence of acute diverticulitis. Fecal loading of the colon. OTHER: Scattered arterial atherosclerotic calcifications. No sizable ascites. Suspected small right f at-containing femoral hernia. IMPRESSION: Colonic diverticulosis without evidence of acute diverticulitis. Other multiple incidental findings a s detailed above, for clinical correlation and further workup.
== END | disposition home or self-care (01) ==
LOC: RADCTMAIN 07:21
PROVIDERS: ATTEND Surgery
DX: K57.30 Diverticulosis of large intestine without perforation or abscess without bleeding (principal)
CPT/HCPCS: 82565; 84520; 74177; 36415; Q9967

== ENCOUNTER 2022-02-06 09:56 | Day surgery (SDC) | payer MEDICARE ==
[2022-02-01 15:37] VITALS: BMI 24.8
[~2022-02-06 09:56] MED LIST changes: +LACTATED RINGERS 1,000 ML IV SCH; +LIDOCAINE 1% (10MG/ML) FOR IV START INTRADERMA PRN; -SODIUM CHLORIDE 0.9% 500 ML 500 ML in EMPTY BAG 1 BAG IV PRN; -ZOLEDRONIC ACID 5 MG in SODIUM CHLORIDE 0.9% 100 ML IV NR
[2022-02-06 10:25] VITALS: TEMP 98
[2022-02-06] MEDS ORDERED: PROPOFOL 10 MG/ML 20 ML VIAL IV ONE (10:44)
--- NOTE | 2022-02-06 10:46 | P.GSHP ---
History of Present Illness H&P Date: 02/06/22 Chief Complaint: GERD, change in bowel habits 76-year-old female here today for upper and lower endoscopy. Patient describes nausea, inability to eat large amounts of food, upper and lower abdominal pain. Recent CAT scan shows diverticulosis and a large hiatal hernia. Past Medical History Past Medical History: GERD/Reflux, Hyperlipidemia, Musculoskeletal Disorder, Osteoarthritis (OA), Thyroid Disorder Additional Past Medical History / Comment(s): "Nausea whenever I try to eat something." HX KIDNEY STONES, HIATAL HERNIA, OSTEOPOROSIS. History of Any Multi-Drug Resistant Organisms: None Reported Past Surgical History: Hysterectomy Additional Past Surgical History / Comment(s): CYST ON TAILBONE REMOVED, BILATERAL CATARACT SURGERY, RIGHT EYE SURGERY. Past Anesthesia/Blood Transfusion Reactions: No Reported Reaction Past Psychological History: Anxiety Smoking Status: Current some day smoker Past Alcohol Use History: None Reported Additional Past Alcohol Use History / Comment(s): SMOKES 1 PACK PER WEEK. Past Drug Use History: None Reported - Past Family History Daughter(s) Family Medical History: Cancer Additional Family Medical History / Comment(s): CERVICAL CANCER. Mother Family Medical History: Cancer Additional Family Medical History / Comment(s): CERVICAL CANCER. Medications and Allergies Home Medications Medication Instructions Recorded Confirmed Type Levothyroxine Sodium [Synthroid] 25 mcg PO QAM 04/15/19 02/06/22 History ALPRAZolam [Xanax] 0.5 mg PO BID PRN 02/01/22 02/06/22 History Atorvastatin [Lipitor] 20 mg PO HS 02/01/22 02/06/22 History Ergocalciferol (Vitamin D2) 1,250 mcg PO Q14D 02/01/22 02/06/22 History [Drisdol (50,000 Iu)] Omeprazole 30 mg PO QAM 02/01/22 02/06/22 History Oxybutynin Chloride 5 mg PO DAILY 02/01/22 02/06/22 History Allergies Allergy/AdvReac Type Severity Reaction Status Date / Time No Known Allergies Allergy Verified 02/01/22 15:17 Surgical - Exam Vital Signs Temp Pulse Resp BP Pulse Ox 98 F 85 16 129/84 96 02/06/22 10:24 02/06/22 10:24 02/06/22 10:24 02/06/22 10:24 02/06/22 10:24 Physical exam: General: Well-developed, well-nourished HEENT: Normocephalic, sclerae nonicteric Abdomen: Nontender, nondistended Extremities: No edema Neuro: Alert and oriented Assessment and Plan (1) GERD (gastroesophageal reflux disease) Narrative/Plan: Will proceed with upper and lower endoscopy Current Visit: No Status: Acute Code(s): K21.9 - GASTRO-ESOPHAGEAL REFLUX DISEASE WITHOUT ESOPHAGITIS SNOMED Code(s): 214879345
--- NOTE | 2022-02-06 11:02 | P.PCN ---
Date of Procedure: 02/06/22 Procedure(s) Performed: PREOPERATIVE DIAGNOSIS: GERD, nausea, satiety, abdominal pain, change in bowel habits POSTOPERATIVE DIAGNOSIS: Mild gastritis, large hiatal hernia, mild distal esophagitis, poor colonic prep PROCEDURE: 1. EGD with biopsy 2. Attempted colonoscopy ANESTHESIA: [facility] [place] SURGEON: Nando Berkowitz M.D. SPECIMENS: Antrum, distal esophagus ENDOSCOPIC PROCEDURE: The patient was on the endoscopy table in the left decubitus position. The Olympus gastroscope was inserted into the oropharynx and passed under direct visualization to the region of the third portion of the duodenum. From that point the scope was slowly withdrawn inspecting all surfaces carefully. There were no neoplastic inflammatory or polypoid lesions throughout the duodenum. The pylorus was widely patent. The stomach was carefully inspected. There was mild gastritis present. A biopsy of the antrum took place to rule out H. pylori. Retroflexion revealed a large hiatal hernia. The diaphragmatic hiatus was present at 39 cm while the GE junction was present at 30 cm. There was no inflammation in the stomach above the diaphragm. There was a short segment less than 1 cm of distal esophagitis. The remainder the esophagus appear normal. A biopsy of the distal esophagus took place. The patient was kept on the endoscopy table in the left decubitus position. The Olympus colonoscope was inserted into the anus and passed under direct visualization to the sigmoid colon. There was solid stool seen throughout the rectum and sigmoid colon. The scope was withdrawn. The patient's prep clearly did not work. Digital rectal examination was normal. The patient was taken to the recovery room in stable condition per anesthesia guidelines. RECOMMENDATIONS: Resume diet. Will discuss options of repeat prep with patient. Much of the patient's symptoms likely related to her hiatal hernia. Will discuss possible repair.
[2022-02-06 11:20] VITALS: PULSE 70; RESP 18
[2022-02-06 11:31] VITALS: BP 137/85
== END 2022-02-06 11:57 | disposition home or self-care (01) ==
LOC: ORWHC2ENDO 09:56
PROVIDERS: ATTEND Surgery
DX: K29.70 Gastritis, unspecified, without bleeding (principal); K21.00 Gastro-esophageal reflux disease with esophagitis, without bleeding; K44.9 Diaphragmatic hernia without obstruction or gangrene; E78.5 Hyperlipidemia, unspecified; F17.210 Nicotine dependence, cigarettes, uncomplicated; M19.90 Unspecified osteoarthritis, unspecified site; M81.0 Age-related osteoporosis without current pathological fracture; Z87.442 Personal history of urinary calculi
CPT/HCPCS: 45378; 43239; 88305; 88312; 88342; J2704

== ENCOUNTER → 2022-04-13 | Outpatient (CLI) | payer MEDICARE ==
--- NOTE | 2022-04-13 11:27 | XR ---
EXAMINATION TYPE: XR chest 2V DATE OF EXAM: 04/13/2022 COMPARISON: Chest x-ray May 16, 2021 HISTORY: Bronchitis. TECHNIQUE: Frontal and lateral views of the chest are obtained. FINDINGS: There is some new left central perihilar peribronchial wall thickening and increased jorge ngs. No pleural effusion or pneumothorax seen bilaterally. The cardiac silhouette size remains withi n normal limits with atherosclerotic change aortic knob redemonstrated. Moderate size hiatal hernia a gain seen. The osseous structures are intact. IMPRESSION: New left perihilar peribronchial wall thickening consistent with reactive airway disease possibly from a viral bronchiolitis. Correlate clinically.
[2022-04-13 18:24] LABS: Basophils # (A) 0.05 X 10*3/uL (0.00-0.10); Basophils % (A) 0.6 %; Eosinophils # (A) 0.29 X 10*3/uL (0.04-0.35); Eosinophils % (A) 3.4 %; HGB 12.1 g/dL (12.0-15.0); Immature Grans, Automated 0.4 %; Lymphocytes # (A) 2.49 X 10*3/uL (0.90-5.00); Lymphocytes % (A) 29.1 %; MCH 28.1 pg (27.0-32.0); MCV 90.5 fL (80.0-97.0); Mean Platelet Volume 10.2 fL (9.5-12.2); Monocytes # (A) 0.61 X 10*3/uL (0.20-1.00); Monocytes % (A) 7.1 %; NRBC Per 100 WBC 0 /100 WBCS (0.0-0.0); Neutrophils % (A) 59.4 %; Platelet Count 322 X 10*3/uL (140-440); RBC 4.31 X 10*6/uL (4.10-5.20); RDW 12.7 % (11.5-14.5); WBC 8.57 X 10*3/uL (4.50-10.00)
== END | disposition home or self-care (01) ==
LOC: LABWHC1 10:12
PROVIDERS: ATTEND Internal Medicine
DX: J40 Bronchitis, not specified as acute or chronic (principal); J12.9 Viral pneumonia, unspecified; J06.9 Acute upper respiratory infection, unspecified
CPT/HCPCS: 36415; 71046; 85025; 87502; 87634

== ENCOUNTER → 2022-04-24 | Outpatient (CLI) | payer MEDICARE ==
[2022-04-24 20:31] LABS: Anti-DNA, DS unit <1.0 IU/mL; Anti-Smith Ab Interp NEGATIVE (NEGATIVE); DNA Double-Stranded NEGATIVE (NEGATIVE)
[2022-04-25 14:00] LABS: C-ANCA <1:20 Titer (<1:20)
== END | disposition home or self-care (01) ==
LOC: LABWHC1 12:39
PROVIDERS: ATTEND Internal Medicine
DX: J21.9 Acute bronchiolitis, unspecified (principal); D89.9 Disorder involving the immune mechanism, unspecified; K21.9 Gastro-esophageal reflux disease without esophagitis; R05.3 Chronic cough; R06.2 Wheezing
CPT/HCPCS: 36415; 86038; 86225; 86235; 86255

== ENCOUNTER → 2022-05-31 | Outpatient (CLI) | payer MEDICARE ==
[2022-05-31 18:59] LABS: Basophils # (A) 0.05 X 10*3/uL (0.00-0.10); Basophils % (A) 0.5 %; Eosinophils # (A) 0.33 X 10*3/uL (0.04-0.35); Eosinophils % (A) 3.5 %; HCT 35.1 % (37.2-46.3); HGB 11.1 g/dL (12.0-15.0); Immature Grans, Automated 0.2 %; Lymphocytes # (A) 3.12 X 10*3/uL (0.90-5.00); Lymphocytes % (A) 33.2 %; MCH 29.7 pg (27.0-32.0); MCHC 31.6 g/dL (32.0-37.0); MCV 93.9 fL (80.0-97.0); Mean Platelet Volume 9.8 fL (9.5-12.2); Monocytes # (A) 0.51 X 10*3/uL (0.20-1.00); Monocytes % (A) 5.4 %; NRBC Per 100 WBC 0 /100 WBCS (0.0-0.0); Neutrophils # (A) 5.38 X 10*3/uL (1.80-7.70); Neutrophils % (A) 57.2 %; Platelet Count 516 X 10*3/uL (140-440); RBC 3.74 X 10*6/uL (4.10-5.20); RDW 13.5 % (11.5-14.5); WBC 9.41 X 10*3/uL (4.50-10.00)
[2022-05-31 19:21] LABS: Erythrocyte Sedimentation Rate 19 mm/Hr (0-30)
[2022-05-31 19:32] LABS: ALT 21 U/L (8-44); AST 19 U/L (13-35); African American GFR (CKD) 98.4 (60.0-200.0); Albumin 4.2 g/dL (3.8-4.9); Albumin/Globulin Ratio 1.78 (1.60-3.17); Alkaline Phosphatase 107 U/L (41-126); BUN/Creat Ratio 9.08 Ratio (12.00-20.00); Blood Urea Nitrogen 6.3 mg/dL (9.0-27.0); Calcium 9.1 mg/dL (8.7-10.3); Carbon Dioxide 21.4 mmol/L (20.0-27.5); Chloride 106 mmol/L (96-109); Creatine Kinase 38 U/L (26-186); Globulin 2.3 g/dL (1.6-3.3); Glucose 108 mg/dL (70-110); Magnesium 2.2 mg/dL (1.5-2.4); Non-African American GFR(CKD) 84.9 (60.0-200.0); Potassium 4.6 mmol/L (3.5-5.5); Sodium 138 mmol/L (135-145); Total Protein 6.5 g/dL (6.2-8.2)
[2022-05-31 19:46] LABS: Chol/HDL Ratio 2.23 Ratio
== END | disposition home or self-care (01) ==
LOC: LABWHC1 12:09
PROVIDERS: ATTEND Internal Medicine
DX: Z00.00 Encounter for general adult medical examination without abnormal findings (principal); I10 Essential (primary) hypertension; D64.9 Anemia, unspecified; E78.5 Hyperlipidemia, unspecified; E03.9 Hypothyroidism, unspecified; K44.9 Diaphragmatic hernia without obstruction or gangrene
CPT/HCPCS: 36415; 80053; 80061; 82306; 82550; 83735; 84100; 84443; 85025; 85652; 86140

== ENCOUNTER → 2022-05-31 | Outpatient (CLI) | payer MEDICARE ==
[~2022-05-31] MED LIST changes: -LACTATED RINGERS 1,000 ML IV SCH; -LIDOCAINE 1% (10MG/ML) FOR IV START INTRADERMA PRN; +SODIUM CHLORIDE 0.9% 500 ML 500 ML in EMPTY BAG 1 BAG IV PRN; +ZOLEDRONIC ACID 5 MG in SODIUM CHLORIDE 0.9% 100 ML IV NR
[2022-05-31 13:36] VITALS: BP 156/89; PULSE 85; RESP 16; TEMP 97.8
== END ==
LOC: PROCWHC3 13:24
PROVIDERS: ATTEND Internal Medicine
DX: M81.0 Age-related osteoporosis without current pathological fracture (principal)
CPT/HCPCS: 96365; J3489

== ENCOUNTER → 2022-07-16 | Outpatient (CLI) | payer MEDICARE ==
--- NOTE | 2022-07-16 10:12 | FL ---
EXAMINATION TYPE: FL barium swallow DATE OF EXAM: 07/16/2022 9:27 AM COMPARISON: Upper GI 03/24/2015. CLINICAL INDICATION:Female, 77 years old with history of K44.9 DIAPHRAGMATIC HERNIA WITHOUT OBSTRUCTI ON OR; [facility], TECHNIQUE: The procedure was explained and patient history elicited. All patient questions were ans wered prior to start of procedure. Multiple spot fluoroscopic images of the esophagus were obtained a fter the oral ingestion of liquid barium as the contrast agent. Fluoroscopic time: 24 seconds Fluoroscopic images: 115 FINDINGS: The esophagus demonstrates corkscrew appearance with multiple tertiary contractions. There is minimal hold of the contrast at the GE junction. Poor propulsion of the contrast in the RUBI position. Postsu rgical changes at the GE junction. No evidence for recurrent hiatal hernia. No evidence of stricture, ulceration or abnormal outpouching of the esophageal mucosa. IMPRESSION: Moderate to severe esophageal dysmotility.
== END | disposition home or self-care (01) ==
LOC: RADUSWWP 08:44
PROVIDERS: ATTEND Surgery
DX: K22.4 Dyskinesia of esophagus (principal)
CPT/HCPCS: 74220

== ENCOUNTER → 2022-08-14 | Outpatient (CLI) | payer MEDICARE ==
[2022-08-14 18:22] LABS: Appearance,Urine Clear (Clear); Bilirubin,Urine Negative (Negative); Blood,Urine Small (Negative); Color,Urine Yellow (Yellow); Ketones,Urine Negative (Negative); Nitrite,Urine Negative (Negative); Specific Gravity,Urine 1.008 (1.001-1.030); Urobilinogen,Urine 0.2 (0.2,1.0)
[2022-08-14 18:35] LABS: Bacteria,Urine None Seen /HPF (None Seen)
== END | disposition home or self-care (01) ==
LOC: LABWHC1 13:11
PROVIDERS: ATTEND Internal Medicine
DX: N39.0 Urinary tract infection, site not specified (principal)
CPT/HCPCS: 81001; 87086

== ENCOUNTER → 2022-12-19 | Outpatient (CLI) | payer MEDICARE ==
[2022-12-19 23:17] LABS: T4, Free (Free Thyroxine) 1.12 ng/dL (0.800-1.800)
== END | disposition home or self-care (01) ==
LOC: LABWHC1 16:00
PROVIDERS: ATTEND Internal Medicine
DX: E03.9 Hypothyroidism, unspecified (principal)
CPT/HCPCS: 36415; 84439; 84443; 86376

== ENCOUNTER → 2023-01-21 | Outpatient (CLI) | payer MEDICARE ==
[2023-01-22 02:17] LABS: African American GFR (CKD) 72.5 (60.0-200.0); Albumin 4.2 g/dL (3.8-4.9); Albumin/Globulin Ratio 1.91 (1.60-3.17); Anion Gap 9.4 mmol/L (10.00-18.00); BUN/Creat Ratio 11.22 Ratio (12.00-20.00); Blood Urea Nitrogen 10.1 mg/dL (9.0-27.0); Calcium 9.6 mg/dL (8.7-10.3); Carbon Dioxide 26.6 mmol/L (20.0-27.5); Globulin 2.2 g/dL (1.6-3.3); Non-African American GFR(CKD) 62.5 (60.0-200.0); Potassium 4.6 mmol/L (3.5-5.5); Total Bilirubin 0.3 mg/dL (0.30-1.20); Total Protein 6.4 g/dL (6.2-8.2)
[2023-01-22 02:24] LABS: Basophils # (A) 0.05 X 10*3/uL (0.00-0.10); Basophils % (A) 0.5 %; Eosinophils # (A) 0.12 X 10*3/uL (0.04-0.35); Eosinophils % (A) 1.1 %; HCT 39.8 % (37.2-46.3); HGB 12.6 g/dL (12.0-15.0); Immature Grans, Automated 0.3 %; Lymphocytes # (A) 3.38 X 10*3/uL (0.90-5.00); Lymphocytes % (A) 31.6 %; MCH 29.5 pg (27.0-32.0); MCHC 31.7 g/dL (32.0-37.0); MCV 93.2 fL (80.0-97.0); Mean Platelet Volume 9.8 fL (9.5-12.2); Monocytes # (A) 0.52 X 10*3/uL (0.20-1.00); Monocytes % (A) 4.9 %; NRBC Per 100 WBC 0 /100 WBCS (0.0-0.0); Neutrophils # (A) 6.61 X 10*3/uL (1.80-7.70); Neutrophils % (A) 61.6 %; Platelet Count 312 X 10*3/uL (140-440); RBC 4.27 X 10*6/uL (4.10-5.20); WBC 10.71 X 10*3/uL (4.50-10.00)
== END | disposition home or self-care (01) ==
LOC: LABWHC1 14:29
PROVIDERS: ATTEND Internal Medicine
DX: R19.7 Diarrhea, unspecified (principal); R10.12 Left upper quadrant pain; R10.11 Right upper quadrant pain
CPT/HCPCS: 36415; 80053; 82150; 83690; 85025

== ENCOUNTER → 2023-01-22 | Outpatient (CLI) | payer MEDICARE | END | disposition home or self-care (01) | LOC: LABPRL 14:38 | PROVIDERS: ATTEND Internal Medicine | DX: R19.7 Diarrhea, unspecified (principal); R10.11 Right upper quadrant pain; R10.12 Left upper quadrant pain | CPT/HCPCS: 82272; 83630; 87045; 87046 ==

== ENCOUNTER 2023-03-29 07:43 | Day surgery (SDC) | payer MEDICARE ==
[2023-03-26 16:10] VITALS: BMI 24.6
[~2023-03-29 07:43] MED LIST changes: +LACTATED RINGERS 1,000 ML IV SCH; +LIDOCAINE 1% (10MG/ML) FOR IV START INTRADERMA PRN; -SODIUM CHLORIDE 0.9% 500 ML 500 ML in EMPTY BAG 1 BAG IV PRN; -ZOLEDRONIC ACID 5 MG in SODIUM CHLORIDE 0.9% 100 ML IV NR
[2023-03-29 08:28] VITALS: RESP 16; TEMP 96.7
[2023-03-29] MEDS ORDERED: PROPOFOL 10 MG/ML 20 ML VIAL IV ONE (09:15)
[2023-03-29] MEDS ORDERED: LIDOCAINE 2% INJ 20 MG/ML (2 ML VIAL) ONE (09:15)
--- NOTE | 2023-03-29 09:42 | P.PCN ---
Date of Procedure: 03/29/23 Procedure(s) Performed: Brief history: Patient is a pleasant 77-year-old pleasant white female scheduled for an elective upper endoscopy as well as colonoscopy as a part of evaluation of dysphagia/abdominal pain and change in bowel habits. She is been having loose watery bowel movements daily for the last 3 months. No rectal bleeding. Procedure performed: Esophagogastroduodenoscopy with biopsy Colonoscopy with biopsy Preoperative diagnosis: Dysphagia/abdominal pain Change in bowel habits Anesthesia: MAC Procedure: After informed consent was obtained from the patient was brought into the endoscopy unit and IV sedation was administered by anesthesia under continuous monitoring. Initially upper endoscopy was done. The Olympus GF 160 video endoscope was inserted inserted into the mouth and esophagus intubated without any difficulty and was gradually advanced into the stomach and duodenum and carefully examined. The bulb and second part of the duodenum appeared normal. The scope was then withdrawn into the stomach adequately insufflated with air and upon careful examination the antrum and body, cardia and fundus appeared normal. The scope was then withdrawn into the esophagus. The GE junction was located at 40 cm to the incisors. It appeared regular with one superficial erosions consistent with LA grade a reflux esophagitis. Biopsies were done from the distal esophagus. Rest of the esophagus appeared normal. Patient tolerated the procedure well. At this time the patient continued to remain sedation. Initial digital rectal examination was normal. Olympus CF 160 video colonoscope was then inserted into the rectum and gradually advanced to the cecum without any difficulty. Careful examination was performed as the scope was gradually being withdrawn. The prep was excellent. The cecum, ascending colon, transverse colon, descending colon appeared normal. The sigmoid: There was a 3 mm polyp removed by cold biopsy. Rest of the, sigmoid colon and rectum appeared normal. At her sigmoid diverticulosis. Random biopsies were done from ascending and ascending colon to rule out microscope/collagenous colitis. Retroflexion was performed in the rectum and no lesions were noted. Patient tolerated the procedure well. Impression: 1. Upper endoscopy revealed mild reflux esophagitis but no evidence of esophageal stricture 2. Colonoscopy revealed 3 mm sigmoid polyp status post cold biopsy and scattered sigmoid diverticulosis Recommendations: Findings of this examination were discussed with the patient as well as is a family. She was advised to follow with the biopsy results. If the biopsy results adenoma she can have a repeat colonoscopy in 5 years.
[2023-03-29 09:57] VITALS: BP 108/63; PULSE 61
== END 2023-03-29 10:15 | disposition home or self-care (01) ==
LOC: ORWHC2ENDO 07:43
PROVIDERS: ATTEND Internal Medicine Gastroenterology
DX: D12.5 Benign neoplasm of sigmoid colon (principal); K21.00 Gastro-esophageal reflux disease with esophagitis, without bleeding; K57.30 Diverticulosis of large intestine without perforation or abscess without bleeding; E78.5 Hyperlipidemia, unspecified; E03.9 Hypothyroidism, unspecified; F41.9 Anxiety disorder, unspecified; Z79.899 Other long term (current) drug therapy
CPT/HCPCS: 88305; 45380; 43239; J2704; J2001

== ENCOUNTER 2023-05-25 12:14 | Emergency (ER) | payer MEDICARE ==
[2023-05-25 12:32] VITALS: TEMP 96.3
[2023-05-25] MEDS ORDERED: MORPHINE SULFATE 2 MG/ML SYRINGE IM ONE (12:47)
--- NOTE | 2023-05-25 12:52 | ED ---
Head Injury HPI - General Chief complaint: Head Injury Stated complaint: headache/ from a past fall Time Seen by Provider: 05/25/23 12:36 Source: patient, RN notes reviewed, old records reviewed Mode of arrival: ambulatory Limitations: no limitations - History of Present Illness Initial comments: 78-year-old pleasant female, alert and oriented x4, presents ambulatory with complaints of right sided headache. Patient states that she fell after her grandson poked and scared her, hitting her head on the dresser on Saturday. Did not lose consciousness. Does not take any blood thinners. She has had some bruising develop along right zoroastrian with a worsening headache and nausea. Has been taking tylenol 650mg for pain, last dose 0800 today. Persistent nausea and headache brought her to the emergency room for evaluation. MD Complaint: head injury -: days(s) (5) Mechanism of Injury: mechanical fall Location: temporal (right) Loss of Consciousness: no Previous Trauma to this Area: No Place: home Severity scale (1-10): 5 Quality: other (ache) Consistency: constant Other Injuries: none Associated Symptoms: nausea - Related Data Home Medications Medication Instructions Recorded Confirmed Levothyroxine Sodium [Synthroid] 25 mcg PO QAM 04/15/19 03/27/23 ALPRAZolam [Xanax] 0.5 mg PO BID PRN 02/01/22 03/27/23 Atorvastatin [Lipitor] 20 mg PO HS 02/01/22 03/27/23 Ergocalciferol (Vitamin D2) 1,250 mcg PO Q14D 02/01/22 03/27/23 [Drisdol (50,000 Iu)] Oxybutynin Chloride 5 mg PO DAILY 02/01/22 03/27/23 Acetaminophen [Tylenol Arthritis] 650 mg PO DIRECTED PRN 03/27/23 03/27/23 Allergies/Adverse reactions: Allergies Allergy/AdvReac Type Severity Reaction Status Date / Time No Known Allergies Allergy Verified 05/25/23 12:32 Review of Systems ROS Statement: Those systems with pertinent positive or pertinent negative responses have been documented in the HPI. ROS Other: All systems not noted in ROS Statement are negative. Past Medical History Past Medical History: GERD/Reflux, Hyperlipidemia, Musculoskeletal Disorder, Osteoarthritis (OA), Skin Disorder, Thyroid Disorder Additional Past Medical History / Comment(s): "Nausea whenever I try to eat something." HX KIDNEY STONES, HIATAL HERNIA, OSTEOPOROSIS. "Gets rash when stressed out." History of Any Multi-Drug Resistant Organisms: None Reported Past Surgical History: Hernia Repair, Hysterectomy Additional Past Surgical History / Comment(s): CYST ON TAILBONE REMOVED, BILATERAL CATARACT SURGERY, RIGHT EYE SURGERY, hiatal hernia repair 05/18/22, right eye surgery May 2021-had an emacular hole, barium swallow. Past Anesthesia/Blood Transfusion Reactions: No Reported Reaction Past Psychological History: Anxiety Smoking Status: Former smoker Past Alcohol Use History: None Reported Past Drug Use History: None Reported - Past Family History Daughter(s) Family Medical History: Cancer Additional Family Medical History / Comment(s): CERVICAL CANCER. Mother Family Medical History: Cancer Additional Family Medical History / Comment(s): CERVICAL CANCER. General Exam Limitations: no limitations General appearance: alert, in no apparent distress Head exam: Present: normocephalic, other (bruising right zoroastrian ) Expanded Head exam: Present: contusion. Absent: laceration, raccoon eyes, cervantes's sign, CSF rhinorrhea, CSF otorrhea Eye exam: Present: normal appearance, EOMI, periorbital tenderness (right ). Absent: scleral icterus, conjunctival injection, periorbital swelling Pupils: Present: normal accommodation ENT exam: Present: mucous membranes moist Neck exam: Present: full ROM. Absent: tenderness, meningismus Respiratory exam: Absent: respiratory distress, accessory muscle use Cardiovascular Exam: Present: regular rate Extremities exam: Present: normal capillary refill. Absent: tenderness, pedal edema Neurological exam: Present: alert, oriented X3, CN II-XII intact Psychiatric exam: Present: normal affect, normal mood Skin exam: Present: warm, dry, normal color. Absent: cyanosis, diaphoretic, petechiae, pallor Course Vital Signs 05/25/23 05/25/23 12:28 15:30 Temperature 96.3 F L Pulse Rate 76 80 Respiratory 20 18 Rate Blood Pressure 128/81 124/84 O2 Sat by Pulse 99 98 Oximetry - Reevaluation(s) Reevaluation #1: 05/25/23 15:13 Radiology contacted to upload CT for view and official read Time: 15:13 Medical Decision Making - Medical Decision Making Was pt. sent in by a medical professional or institution (LONNIE Barry, POWERHOUSE OPERATOR, urgent care, hospital, or correction...) When possible be specific @ -No Did you speak to anyone other than the patient for history (EMS, parent, family, police, friend...)? What history was obtained from this source @ -No Did you review nursing and triage notes (agree or disagree)? Why? @ -I reviewed and agree with nursing and triage notes Were old charts reviewed (outside hosp., previous admission, EMS record, old EKG, old radiological studies, urgent care reports/EKG's, correction records)? Report findings @ -No old charts were reviewed Differential Diagnosis (chest pain, altered mental status, abdominal pain women, abdominal pain men, vaginal bleeding, weakness, fever, dyspnea, syncope, headache, dizziness, GI bleed, back pain, seizure, CVA, palpatations, mental health, musculoskeletal)? @ -Differential Headache: Migraine, tension, cluster, carbon monoxide, central venous thrombosis, pension karma temporal arteritis, acute closure glaucoma, intercranial hemorrhage, mastoiditis, sinusitis, head injury, this is not meant to be an all-inclusive list. EKG interpreted by me (3pts min.). @ -n/a X-rays interpreted by me (1pt min.). @ -None done CT interpreted by me (1pt min.). @ -yes CT facial bones interpreted by me shows no evidence of facial bone fractures. U/S interpreted by me (1pt. min.). @ -None done What testing was considered but not performed or refused? (CT, X-rays, U/S, labs)? Why? @ -None What meds were considered but not given or refused? Why? @ -None Did you discuss the management of the patient with other professionals (professionals i.e. LONNIE Barry, POWERHOUSE OPERATOR, lab, RT, psych nurse, social sciences chair, business administration instructor, teacher, deputy juvenile officer, case management manager)? Give summary @ -No Was smoking cessation discussed for >3mins.? @ -No Was critical care preformed (if so, how long)? @ -No Were there social determinants of health that impacted care today? How? (Homelessness, low income, unemployed, alcoholism, drug addiction, transportation, low edu. Level, literacy, decrease access to med. care, [place] [facility], rehab)? @ -No Was there de-escalation of care discussed even if they declined (Discuss DNR or withdrawal of care, Hospice)? DNR status @ -No What co-morbidities impacted this encounter? (DM, HTN, Smoking, COPD, CAD, Cancer, CVA, ARF, Chemo, Hep., AIDS, mental health diagnosis, sleep apnea, morbid obesity)? @ -None Was patient admitted / discharged? Hospital course, mention meds given and route, prescriptions, significant lab abnormalities, going to OR and other pertinent info. @ -discharged 78-year-old pleasant female, alert and oriented x4, presents ambulatory with complaints of right sided headache. Patient states that she fell after her grandson poked and scared her, hitting her head on the dresser on Saturday. Did not lose consciousness. Does not take any blood thinners. She has had some bruising develop along right zoroastrian with a worsening headache and nausea. Has been taking tylenol 650mg for pain, last dose 0800 today. Persistent nausea and headache brought her to the emergency room for evaluation. CT facial bones interpreted by me shows no evidence of facial bone fractures. Radiologist interpretation no acute displaced facial bone fracture. Orbital chris are intact. Patient is able to ambulate with a steady gait. No focal neurological deficits. No vision changes. No epistaxis or oral injuries. Vital signs are stable. Pain improved with morphine. Patient was discharged home and directed to continue Tylenol and follow up with her primary care doctor next week. Return to the emergency room with any new or concerning symptoms. She is agreeable to this plan of care. Case discussed with Dr. Chambers Undiagnosed new problem with uncertain prognosis? @ -No Drug Therapy requiring intensive monitoring for toxicity (Heparin, Nitro, Insulin, Cardizem)? @ -No Were any procedures done? @ -No Diagnosis/symptom? @ -Fall, head injury, contusion Acute, or Chronic, or Acute on Chronic? @ -Acute Uncomplicated (without systemic symptoms) or Complicated (systemic symptoms)? @ -Uncomplicated Side effects of treatment? @ -No Exacerbation, Progression, or Severe Exacerbation? @ -No Poses a threat to life or bodily function? How? (Chest pain, USA, SD, pneumonia, PE, COPD, DKA, ARF, appy, cholecystitis, CVA, Diverticulitis, Homicidal, Suicidal, threat to staff... and all critical care pts) @ -No Disposition Clinical Impression: Fall, Contusion of face, Head injury Disposition: HOME SELF-CARE Condition: Good Instructions (If sedation given, give patient instructions): Fall Prevention for Older Adults (ED), Head Injury (ED), Facial Contusion (ED) Additional Instructions: Tylenol and/or Motrin as needed for any pain or discomfort. Follow-up with your primary care doctor next week for reevaluation. Return to the emergency room with any new or concerning symptoms. Is patient prescribed a controlled substance at d/c from ED?: No Referrals: Nonstaff,Physician [REFERRING] - 1-2 days Time of Disposition: 15:31
--- NOTE | 2023-05-25 15:22 | CT ---
EXAMINATION TYPE: CT facial bones wo con DATE OF EXAM: 05/25/2023 COMPARISON: NONE HISTORY: fall, pain left evangelical CT DLP: 521.8 mGycm. Automated Exposure Control for Dose Reduction was Utilized. TECHNIQUE: CT scan of the head and cervical spine are performed without contrast. FINDINGS: The mandible is intact bilaterally. There is degenerative change at the bilateral temporoma ndibular joints. The nasal bones are intact. The orbital floors and chris are intact. Bilateral aphak ia is present. Intraconal fat is preserved. The zygomatic arches are intact bilaterally. The mandible is intact. The pterygoid plates are intact. The paranasal sinuses are grossly clear. No well-formed fluid collection or hematoma seen. IMPRESSION: 1. There is no acute displaced facial bone fracture.
[2023-05-25 15:40] VITALS: BP 124/84; PULSE 80; RESP 18
== END 2023-05-25 15:30 | disposition home or self-care (01) ==
LOC: EC 12:14
DX: S00.83XA Contusion of other part of head, initial encounter (principal); K21.9 Gastro-esophageal reflux disease without esophagitis; E78.5 Hyperlipidemia, unspecified; M19.90 Unspecified osteoarthritis, unspecified site; E07.9 Disorder of thyroid, unspecified; M81.0 Age-related osteoporosis without current pathological fracture; F41.9 Anxiety disorder, unspecified; Z87.891 Personal history of nicotine dependence; Z79.890 Hormone replacement therapy; Z79.899 Other long term (current) drug therapy; W01.198A Fall on same level from slipping, tripping and stumbling with subsequent striking against other object, initial encounter; Y92.009 Unspecified place in unspecified non-institutional (private) residence as the place of occurrence of the external cause
CPT/HCPCS: 70486; 99283; 96372; J2270

== ENCOUNTER → 2023-06-25 | Outpatient (CLI) | payer MEDICARE ==
--- NOTE | 2023-06-26 19:20 | MM ---
Reason for Exam: Screening (asymptomatic). Last mammogram was performed 1 year(s) and 11 month(s) ago. Patient History: Menarche at age 14. First Full-Term at age 19. Left ovary removed at age 35. Right ovary removed at age 35. Hysterectomy at age 35. Postmenopausal. Estrogen for 10 years from age 36 until age 46. Maternal cousin had breast cancer, age 48. Maternal aunt had breast cancer, age 70. Risk Values: Prerna 5 year model risk: 1.3%. NCI Lifetime model risk: 2.6%. Prior Study Comparison: 09/29/2018 Bilateral Screening Mammogram, [facility]. 06/24/2020 Bilateral Screening Mammogram, [facility]. 07/17/2021 Bilateral Screening Mammogram, [facility]. Tissue Density: The breast tissue is almost entirely fat. Findings: Analyzed By CAD. There is chronic nodularity on the left. Benign bilateral vascular calcifications are also redemonstrated. There is no suspicious group of microcalcifications or new suspicious mass in either breast. Overall Assessment: Benign, BI-RAD 2 Management: Screening Mammogram of both breasts in 1 year. . Patient should continue monthly self-breast exams. A clinical breast exam by your physician is recommended on an annual basis. This exam should not preclude additional follow-up of suspicious palpable abnormalities. Note on Prerna scores and lifetime risk: 1. A Prerna score greater than 3% is considered moderate risk. If this is the case, consider specialist referral to assess eligibility for a risk reducing agent. 2. If overall lifetime risk for the development of breast cancer is 20% or higher, the patient may qualify for future screening with alternating mammogram and breast MRI. Electronically signed and approved by: Bogdan Balderas M.D. Radiologist
== END | disposition home or self-care (01) ==
LOC: RADMAMWWP 15:03
PROVIDERS: ATTEND Internal Medicine
DX: Z12.31 Encounter for screening mammogram for malignant neoplasm of breast (principal); Z78.0 Asymptomatic menopausal state; Z80.3 Family history of malignant neoplasm of breast
CPT/HCPCS: 77063; 77067

== ENCOUNTER 2023-07-24 17:30 | Observation (INO) | payer MEDICARE ==
--- NOTE | 2023-07-24 18:17 | ED ---
Arrhythmia/Palpitations HPI - General Chief Complaint: Arrhythmia/Palpitations Stated Complaint: Tachycardia Time Seen by Provider: 07/24/23 17:49 Source: patient, EMS, RN notes reviewed, old records reviewed Mode of arrival: EMS Limitations: no limitations - History of Present Illness Initial Comments: This is a 78-year-old female to the emergency department today. Patient presents today for evaluation regarding elevated heart rate a near syncopal e vent prior to arrival. Patient while she was doing some cooking in the kitchen after she bent down and stood up. Her heart rate was persistently elevated at home and EMS arrived at her house. EMS found patient to be in significant SVT and they did give adenosine for SVT. Patient is brought to the emergency department after sinus rhythm. Patient feels improved now to psychosis and a pass out his episodes occurring. Patient also admitted to chest pain at the time MD Complaint: rapid heart beat, "heart racing", "skipped beats", palpitations -: hour(s) Arrhythmia History: other (0) Associated Symptoms: chest pain, shortness of breath, near-syncope Treatments Prior to Arrival: cardioversion - Related Data Home Medications Medication Instructions Recorded Confirmed Levothyroxine Sodium [Synthroid] 25 mcg PO DAILY 04/15/19 07/24/23 ALPRAZolam [Xanax] 0.5 mg PO BID 02/01/22 07/24/23 Ergocalciferol (Vitamin D2) 1,250 mcg PO Q14D 02/01/22 07/24/23 [Drisdol (50,000 Iu)] Oxybutynin Chloride 5 mg PO DAILY 02/01/22 07/24/23 Hyoscyamine Sulfate [Hyoscyamine 0.375 mg PO BID 07/24/23 07/24/23 Sulfate ER] Omeprazole 40 mg PO DAILY 07/24/23 07/24/23 Previous Rx's Medication Instructions Recorded Aspirin 81 mg PO DAILY #90 tab 07/25/23 Atorvastatin [Lipitor] 40 mg PO HS #90 tab 07/25/23 Metoprolol Succinate (ER) [Toprol 25 mg PO DAILY #90 tab 07/25/23 XL] Allergies Allergy/AdvReac Type Severity Reaction Status Date / Time No Known Allergies Allergy Verified 07/24/23 20:07 Review of Systems ROS Statement: Those systems with pertinent positive or pertinent negative responses have been documented in the HPI. ROS Other: All systems not noted in ROS Statement are negative. Past Medical History Past Medical History: GERD/Reflux, Hyperlipidemia, Musculoskeletal Disorder, Osteoarthritis (OA), Skin Disorder, Thyroid Disorder Additional Past Medical History / Comment(s): "Nausea whenever I try to eat something." HX KIDNEY STONES, HIATAL HERNIA, OSTEOPOROSIS. "Gets rash when stressed out." History of Any Multi-Drug Resistant Organisms: None Reported Past Surgical History: Hernia Repair, Hysterectomy Additional Past Surgical History / Comment(s): CYST ON TAILBONE REMOVED, BILATERAL CATARACT SURGERY, RIGHT EYE SURGERY, hiatal hernia repair 05/18/22, right eye surgery May 2021-had an emacular hole, barium swallow. Past Anesthesia/Blood Transfusion Reactions: No Reported Reaction Past Psychological History: Anxiety Smoking Status: Former smoker Past Alcohol Use History: None Reported Past Drug Use History: None Reported - Past Family History Daughter(s) Family Medical History: Cancer Additional Family Medical History / Comment(s): CERVICAL CANCER. Mother Family Medical History: Cancer Additional Family Medical History / Comment(s): CERVICAL CANCER. General Exam Limitations: no limitations General appearance: alert, in no apparent distress, anxious Head exam: Present: atraumatic, normocephalic, normal inspection Eye exam: Present: normal appearance, PERRL, EOMI. Absent: scleral icterus, conjunctival injection, periorbital swelling ENT exam: Present: normal exam, mucous membranes moist Neck exam: Present: normal inspection. Absent: tenderness, meningismus, lymphadenopathy Respiratory exam: Present: normal lung sounds bilaterally. Absent: respiratory distress, wheezes, rales, rhonchi, stridor Cardiovascular Exam: Present: tachycardia, irregular rhythm, normal heart sounds. Absent: systolic murmur, diastolic murmur, rubs, gallop, clicks GI/Abdominal exam: Present: soft, normal bowel sounds. Absent: distended, tenderness, guarding, rebound, rigid Extremities exam: Present: normal inspection, full ROM, normal capillary refill. Absent: tenderness, pedal edema, joint swelling, calf tenderness Back exam: Present: normal inspection Neurological exam: Present: alert, oriented X3, CN II-XII intact Psychiatric exam: Present: normal affect, normal mood Skin exam: Present: warm, dry, intact, normal color. Absent: rash Course Vital Signs 1107/24/23 07/24/23 17:31 18:00 18:30 Temperature 98.3 F Pulse Rate 96 89 81 Respiratory 18 14 14 Rate Blood Pressure 135/84 116/90 119/85 O2 Sat by Pulse 99 97 97 Oximetry - Reevaluation(s) Reevaluation #1: 07/24/23 19:46 Medical record is reviewed Reevaluation #2: 07/24/23 19:46 No recurrent SVT here in the ER Reevaluation #3: 07/24/23 19:46 Patient informed results and questions answered Reevaluation #4: 07/24/23 19:47 Was pt. sent in by a medical professional or institution (, LONNIE, VULCANIZER OPERATOR, urgent care, hospital, or assisted...) When possible be specific @ -no Did you speak to anyone other than the patient for history (EMS, parent, family, police, friend...)? What history was obtained from this source @ -no Did you review nursing and triage notes (agree or disagree)? Why? @ -agree Are old charts reviewed (outside hosp., previous admission, EMS record, old EKG, old radiological studies, urgent care reports/EKG's, assisted records)? Report findings @ -yes Differential Diagnosis (chest pain, altered mental status, abdominal pain women, abdominal pain men, vaginal bleeding, weakness, fever, dyspnea, syncope, headache, dizziness, GI bleed, back pain, seizure, CVA, palpatations, mental health, musculoskeletal)? @ -prior EKG interpreted by me (3pts min.). @ -yes X-rays interpreted by me (1pt min.). @ -yes CT interpreted by me (1pt min.). @ -no U/S interpreted by me (1pt. min.). @ -no What testing was considered but not performed or refused? (CT, X-rays, U/S, labs)? Why? @ -none What meds were considered but not given or refused? Why? @ -none Did you discuss the management of the patient with other professionals (professionals i.e. LONNIE Barry, VULCANIZER OPERATOR, lab, RT, psych nurse, social media coordinator, geriatric case manager, teacher, chief supply chain officer, caser in)? Give summary @ -no Was smoking cessation discussed for >3mins.? @ -no Was critical care preformed (if so, how long)? @ -no Were there social determinants of health that impacted care today? How? (Homelessness, low income, unemployed, alcoholism, drug addiction, transportation, low edu. Level, literacy, decrease access to med. care, senior care, rehab)? @ -none Was there de-escalation of care discussed even if they declined (Discuss DNR or withdrawal of care, Hospice)? DNR status @ -no What co-morbidities impacted this encounter? (DM, HTN, Smoking, COPD, CAD, Cancer, CVA, ARF, Chemo, Hep., AIDS, mental health diagnosis, sleep apnea, morbid obesity)? @ -none Was patient admitted / discharged? Hospital course, mention meds given and route, prescriptions, significant lab abnormalities, going to OR and other pertinent info. @ - 78 female to the emergency department for evaluation, patient did have SVT with a near syncopal event prior to arrival converted with adenosine. Patient has persistent mild tachycardia here in the ER will be admitted for cardiology evaluation management Admitted Undiagnosed new problem with uncertain prognosis? @ -no Drug Therapy requiring intensive monitoring for toxicity (Heparin, Nitro, Insulin, Cardizem)? @ -no Were any procedures done? @ -no Diagnosis/symptom? @ -Chest pain, SVT Acute, or Chronic, or Acute on Chronic? @ -Acute Uncomplicated (without systemic symptoms) or Complicated (systemic symptoms)? @ -Complicated Side effects of treatment? @ -no Exacerbation, Progression, or Severe Exacerbation? @ -exacerbation Poses a threat to life or bodily function? How? (Chest pain, [place], [place], pneumonia, PE, COPD, DKA, ARF, appy, cholecystitis, CVA, Diverticulitis, Homicidal, Suicidal, threat to staff... and all critical care pts) @ -yes with significant dysrhythmia and chest pain Reevaluation #5: 07/24/23 19:47 Differential Palpitations Ventricular arrhythmias, atrial arrhythmias, myocardial infarction, anemia, thyrotoxicosis, electrolyte imbalance, hypokalemia, pulmonary embolism, pulmonary disease, drugs, alcohol, anxiety, stress.... This is not meant to be an all-inclusive list. - Consultations Consultation #1: Spoke with Dr. Choudhury will admit this patient EKG Findings - EKG Comments: EKG Findings:: EKG is sinus 71 FL 134 QRS 77 QTC 391 Medical Decision Making - Medical Decision Making 78 female to the emergency department for evaluation, patient did have SVT with a near syncopal event prior to arrival converted with adenosine. Patient has persistent mild tachycardia here in the ER [facility] for cardiology evaluation management - Lab Data Result diagrams: 07/25/23 08:39 07/25/23 08:39 Lab Results 07/24/23 07/24/23 07/24/23 Range/Units 18:24 18:24 18:24 WBC 9.8 (3.8-10.6) k/uL RBC 4.14 (3.80-5.40) m/uL Hgb 12.8 (11.4-16.0) gm/dL Hct 38.1 (34.0-46.0) % MCV 92.0 (80.0-100.0) fL MCH 30.9 (25.0-35.0) pg MCHC 33.6 (31.0-37.0) g/dL RDW 12.7 (11.5-15.5) % Plt Count 263 (150-450) k/uL MPV 7.4 Neutrophils % 62 % Lymphocytes % 31 % Monocytes % 3 % Eosinophils % 2 % Basophils % 0 % Neutrophils # 6.1 (1.3-7.7) k/uL Lymphocytes # 3.0 (1.0-4.8) k/uL Monocytes # 0.3 (0-1.0) k/uL Eosinophils # 0.2 (0-0.7) k/uL Basophils # 0.0 (0-0.2) k/uL PT 11.1 (10.0-12.5) sec INR 1.0 (<1.2) APTT 21.8 L (22.0-30.0) sec Sodium 139 (137-145) mmol/L Potassium 3.7 (3.5-5.1) mmol/L Chloride 108 H (98-107) mmol/L Carbon Dioxide 23 (22-30) mmol/L Anion Gap 8 mmol/L BUN 11 (7-17) mg/dL Creatinine 0.73 (0.52-1.04) mg/dL Est GFR (CKD-EPI)AfAm >90 (>60 ml/min/1.73 sqM) Est GFR (CKD-EPI)NonAf 81 (>60 ml/min/1.73 sqM) Glucose 93 (74-99) mg/dL Calcium 9.2 (8.4-10.2) mg/dL Phosphorus 3.4 (2.5-4.5) mg/dL Magnesium 2.3 (1.6-2.3) mg/dL Total Bilirubin 0.7 (0.2-1.3) mg/dL AST 25 (14-36) U/L ALT 15 (4-34) U/L Alkaline Phosphatase 72 (38-126) U/L Troponin I (0.000-0.034) ng/mL NT-Pro-B Natriuret Pep 242 pg/mL Total Protein 6.5 (6.3-8.2) g/dL Albumin 3.8 (3.5-5.0) g/dL TSH 1.410 (0.465-4.680) mIU/L 07/24/23 Range/Units 18:24 WBC (3.8-10.6) k/uL RBC (3.80-5.40) m/uL Hgb (11.4-16.0) gm/dL Hct (34.0-46.0) % MCV (80.0-100.0) fL MCH (25.0-35.0) pg MCHC (31.0-37.0) g/dL RDW (11.5-15.5) % Plt Count (150-450) k/uL MPV Neutrophils % % Lymphocytes % % Monocytes % % Eosinophils % % Basophils % % Neutrophils # (1.3-7.7) k/uL Lymphocytes # (1.0-4.8) k/uL Monocytes # (0-1.0) k/uL Eosinophils # (0-0.7) k/uL Basophils # (0-0.2) k/uL PT (10.0-12.5) sec INR (<1.2) APTT (22.0-30.0) sec Sodium (137-145) mmol/L Potassium (3.5-5.1) mmol/L Chloride (98-107) mmol/L Carbon Dioxide (22-30) mmol/L Anion Gap mmol/L BUN (7-17) mg/dL Creatinine (0.52-1.04) mg/dL Est GFR (CKD-EPI)AfAm (>60 ml/min/1.73 sqM) Est GFR (CKD-EPI)NonAf (>60 ml/min/1.73 sqM) Glucose (74-99) mg/dL Calcium (8.4-10.2) mg/dL Phosphorus (2.5-4.5) mg/dL Magnesium (1.6-2.3) mg/dL Total Bilirubin (0.2-1.3) mg/dL AST (14-36) U/L ALT (4-34) U/L Alkaline Phosphatase (38-126) U/L Troponin I 0.051 H* (0.000-0.034) ng/mL NT-Pro-B Natriuret Pep pg/mL Total Protein (6.3-8.2) g/dL Albumin (3.5-5.0) g/dL TSH (0.465-4.680) mIU/L - Radiology Data Radiology results: report reviewed (Chest x-rays negative for acute disease), image reviewed Critical Care Time Critical Care Time: Yes Total Critical Care Time: 31 Disposition Clinical Impression: Palpitations, Tachycardia, Supraventricular tachycardia, Elevated troponin, Near syncope Disposition: ADMITTED IP TO THIS [facility] Condition: Serious Is patient prescribed a controlled substance at d/c from ED?: No Time of Disposition: 19:40
--- NOTE | 2023-07-24 18:41 | XR ---
EXAMINATION TYPE: XR chest 2V DATE OF EXAM: 07/24/2023 6:35 PM CLINICAL INDICATION:Female, 78 years old with history of Weakness; PH[facility] COMPARISON: Chest radiographs from 04/13/2022 TECHNIQUE: XR chest 2V Frontal and lateral views of the chest. FINDINGS: Lungs/Pleura: There is no evidence of pleural effusion, focal consolidation, or pneumothorax. Pulmonary vascularity: Unremarkable. Heart/mediastinum: Cardiomediastinal silhouette is unremarkable. Musculoskeletal: No acute osseous pathology. IMPRESSION: No acute cardiopulmonary disease/process.
[2023-07-24 18:43] LABS: Basophils % (A) 0 %; Eosinophils # (A) 0.2 k/uL (0-0.7); Eosinophils % (A) 2 %; HCT 38.1 % (34.0-46.0); HGB 12.8 gm/dL (11.4-16.0); Lymphocytes % (A) 31 %; MCH 30.9 pg (25.0-35.0); MCHC 33.6 g/dL (31.0-37.0); Mean Platelet Volume 7.4; Monocytes # (A) 0.3 k/uL (0-1.0); Monocytes % (A) 3 %; Neutrophils # (A) 6.1 k/uL (1.3-7.7); Neutrophils % (A) 62 %; Platelet Count 263 k/uL (150-450); RBC 4.14 m/uL (3.80-5.40); RDW 12.7 % (11.5-15.5); WBC 9.8 k/uL (3.8-10.6)
[2023-07-24 18:49] LABS: ALT 15 U/L (4-34); AST 25 U/L (14-36); African American GFR (CKD) >90 (>60 ml/min/1.73 sqM); Albumin 3.8 g/dL (3.5-5.0); Alkaline Phosphatase 72 U/L (38-126); Anion Gap 8 mmol/L; Blood Urea Nitrogen 11 mg/dL (7-17); Calcium 9.2 mg/dL (8.4-10.2); Carbon Dioxide 23 mmol/L (22-30); Chloride 108 mmol/L (98-107); Glucose 93 mg/dL (74-99); Magnesium 2.3 mg/dL (1.6-2.3); Non-African American GFR(CKD) 81 (>60 ml/min/1.73 sqM); Phosphorus 3.4 mg/dL (2.5-4.5); Potassium 3.7 mmol/L (3.5-5.1); Sodium 139 mmol/L (137-145); Total Bilirubin 0.7 mg/dL (0.2-1.3); Total Protein 6.5 g/dL (6.3-8.2)
[2023-07-24 18:58] LABS: NT-Pro-B-Type Natriuretic Pept 242 pg/mL
[2023-07-24 19:02] LABS: Prothrombin Time 11.1 sec (10.0-12.5)
[2023-07-24 19:06] LABS: Partial Thromboplastin Time 21.8 sec (22.0-30.0)
[2023-07-24] MEDS ORDERED: ONDANSETRON 4 MG/2 ML VIAL IVP PRN (19:41)
[2023-07-24] MEDS ORDERED: NALOXONE 0.4 MG/ML 1 ML VIAL IV PRN (19:41)
[2023-07-24] MEDS: SODIUM CHLORIDE 0.9% 1,000 ML IV SCH (19:57)
[2023-07-24] MEDS ORDERED: ACETAMINOPHEN TAB 325 MG TAB PO STA (19:59)
[2023-07-24] MEDS: MORPHINE SULFATE 4 MG/ML SYRINGE IV PRN (22:19)
[2023-07-24] MEDS ORDERED: HEPARIN SOD,PORK IN 0.45% NACL 25,000 UNIT in 0.45% NACL 1 250ML.BAG IV SCH (23:45)
[2023-07-24] MEDS ORDERED: HEPARIN SODIUM 1,000 UN/ML (10ML VL) IV PRN (23:52)
[2023-07-24] MEDS ORDERED: HEPARIN SODIUM 1,000 UN/ML (10ML VL) IV ONE (23:52)
[2023-07-25 00:49] LABS: Partial Thromboplastin Time 24.4 sec (22.0-30.0); Prothrombin Time 11.4 sec (10.0-12.5)
[2023-07-25 01:21] LABS: Basophils % (A) 0 %; Eosinophils # (A) 0.2 k/uL (0-0.7); Eosinophils % (A) 3 %; HCT 37.8 % (34.0-46.0); HGB 12.4 gm/dL (11.4-16.0); Lymphocytes # (A) 3.1 k/uL (1.0-4.8); Lymphocytes % (A) 39 %; MCH 30.5 pg (25.0-35.0); MCHC 32.7 g/dL (31.0-37.0); Mean Platelet Volume 7.3; Monocytes # (A) 0.3 k/uL (0-1.0); Monocytes % (A) 3 %; Neutrophils # (A) 4.3 k/uL (1.3-7.7); Neutrophils % (A) 54 %; Platelet Count 243 k/uL (150-450); RBC 4.06 m/uL (3.80-5.40); RDW 12.6 % (11.5-15.5)
[2023-07-25 09:34] LABS: Basophils % (A) 1 %; Eosinophils # (A) 0.3 k/uL (0-0.7); Eosinophils % (A) 4 %; HCT 37.3 % (34.0-46.0); HGB 12.3 gm/dL (11.4-16.0); Lymphocytes # (A) 3.2 k/uL (1.0-4.8); Lymphocytes % (A) 40 %; MCH 30.5 pg (25.0-35.0); MCHC 32.9 g/dL (31.0-37.0); MCV 92.6 fL (80.0-100.0); Mean Platelet Volume 7.3; Monocytes # (A) 0.2 k/uL (0-1.0); Monocytes % (A) 3 %; Neutrophils # (A) 4.1 k/uL (1.3-7.7); Neutrophils % (A) 51 %; Platelet Count 249 k/uL (150-450); RBC 4.03 m/uL (3.80-5.40); RDW 12.7 % (11.5-15.5); WBC 8.1 k/uL (3.8-10.6)
[2023-07-25 09:48] LABS: INR 1.1 (<1.2); Prothrombin Time 11.9 sec (10.0-12.5)
[2023-07-25] MEDS: MORPHINE SULFATE 4 MG/ML SYRINGE IV PRN (09:48)
[2023-07-25] MEDS: METOPROLOL SUCCINATE (ER) 25 MG TAB.ER.24H PO SCH (09:48)
[2023-07-25] MEDS: ASPIRIN 81 MG PO SCH (09:48)
[2023-07-25] MEDS: SODIUM CHLORIDE 0.9% 1,000 ML IV SCH ×2 (09:51→20:34)
[2023-07-25 10:02] LABS: ALT 14 U/L (4-34); AST 23 U/L (14-36); African American GFR (CKD) >90 (>60 ml/min/1.73 sqM); Albumin 3.5 g/dL (3.5-5.0); Alkaline Phosphatase 79 U/L (38-126); Anion Gap 7 mmol/L; Blood Urea Nitrogen 8 mg/dL (7-17); Calcium 8.5 mg/dL (8.4-10.2); Carbon Dioxide 22 mmol/L (22-30); Chloride 111 mmol/L (98-107); Glucose 89 mg/dL (74-99); Magnesium 2.1 mg/dL (1.6-2.3); Non-African American GFR(CKD) >90 (>60 ml/min/1.73 sqM); Phosphorus 2.9 mg/dL (2.5-4.5); Potassium 3.8 mmol/L (3.5-5.1); Sodium 140 mmol/L (137-145); Total Bilirubin 0.7 mg/dL (0.2-1.3); Total Protein 6.1 g/dL (6.3-8.2)
--- NOTE | 2023-07-25 10:16 | P.CRDCN ---
History of Present Illness History of present illness: HISTORY OF PRESENT ILLNESS: This is a 78-year-old female with a past medical history significant for hypothyroidism, hyperlipidemia, anxiety, and hiatal hernia repair. Patient does not follow with a socket welder helper. We have been asked to see the patient in consultation for SVT. Patient examined at the bedside. Patient states yesterday she was in her kitchen cooking when she began to feel lightheaded. She also reports having palpitations. She states that she went to lay down on the couch for about 15 minutes and when she got up she continued to have palpitations and felt nauseous. Her daughter took her blood pressure and was found to be 100/50. She states her blood pressure usually runs in the 120s. However her heart rate was noted to be in the 160s. Her daughter tried having her cough and also applied ice packs to her and noted her heart rate to come down but was unable to keep her heart rate controlled so they called EMS. Patient was found to be in SVT. She received 6mg of adenosine per EMS with conversion to sinus mechanism. She is maintaining sinus mechanism this morning. She denies chest pain or pressure. Denies shortness of breath. She denies any previous history of cardiac arrhythmias * EKG reveals sinus mechanism with no signs of acute ischemia * Chest xray negative for acute process * Laboratory data: TSH 1.410. Troponin 0.051. 0.219. 0.215. * Current home cardiac medications include atorvastatin 20 mg daily * Most recent echocardiogram obtained in April 2020 revealed ejection fraction 60-65%, trace to mild MR, and mild TR REVIEW OF SYSTEMS: At the time of my exam: CONSTITUTIONAL: Denies fever or chills. HEENT: Denies blurred vision, vision changes, or eye pain. Denies hemoptysis CARDIOVASCULAR: Denies chest pain. Denies orthopnea. Denies PND. Denies palpitations RESPIRATORY: Denies shortness of breath. GASTROINTESTINAL: Denies abdominal pain. Denies nausea or vomiting. HEMATOLOGIC: Denies bleeding disorders. GENITOURINARY: Denies any blood in urine. SKIN: Denies pruitis. Denies rash. PHYSICAL EXAM: VITAL SIGNS: Reviewed. GENERAL: Well-developed in no acute distress. HEENT: Head is normocephalic. Pupils are equal, round. Sclerae anicteric. Mucous membranes of the mouth are moist. Neck supple. No JVD or thyromegaly LUNGS: Respirations even and unlabored. Lungs essentially clear to auscultation bilaterally. HEART: Regular rate and rhythm. S1 and S2 heard. ABDOMEN: Soft. Nondistended. Nontender. EXTREMITIES: Normal range of motion. No clubbing or cyanosis. Peripheral pulses intact. No lower extremity edema NEUROLOGIC: Awake and alert. Oriented x 3. 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 Ac Patient may be discharged home today from a cardiac standpoint She is to follow up in office in one week Nurse practitioner note has been reviewed by physician. Signing provider agrees with the documented findings, assessment, and plan of care. Past Medical History Past Medical History: GERD/Reflux, Hyperlipidemia, Musculoskeletal Disorder, Osteoarthritis (OA), Skin Disorder, Thyroid Disorder Additional Past Medical History / Comment(s): HX KIDNEY STONES, HIATAL HERNIA, OSTEOPOROSIS. "Gets rash when stressed out." History of Any Multi-Drug Resistant Organisms: None Reported Past Surgical History: Hernia Repair, Hysterectomy Additional Past Surgical History / Comment(s): CYST ON TAILBONE REMOVED, BILATERAL CATARACT SURGERY, RIGHT EYE SURGERY, hiatal hernia repair 05/18/22, right eye surgery May 2021-had an emacular hole, barium swallow. EGD/colon oscopy Past Anesthesia/Blood Transfusion Reactions: No Reported Reaction Past Psychological History: Anxiety Smoking Status: Former smoker Past Alcohol Use History: None Reported Additional Past Alcohol Use History / Comment(s): QUIT SMOKING 03/30, SMOKED 1 PACK PER WEEK. Past Drug Use History: None Reported - Past Family History Daughter(s) Family Medical History: Cancer Additional Family Medical History / Comment(s): CERVICAL CANCER. Mother Family Medical History: Cancer Additional Family Medical History / Comment(s): CERVICAL CANCER. Medications and Allergies Home Medications Medication Instructions Recorded Confirmed Type Levothyroxine Sodium [Synthroid] 25 mcg PO DAILY 04/15/19 07/24/23 History ALPRAZolam [Xanax] 0.5 mg PO BID 02/01/22 07/24/23 History Ergocalciferol (Vitamin D2) 1,250 mcg PO Q14D 02/01/22 07/24/23 History [Drisdol (50,000 Iu)] Oxybutynin Chloride 5 mg PO DAILY 02/01/22 07/24/23 History Hyoscyamine Sulfate [Hyoscyamine 0.375 mg PO BID 07/24/23 07/24/23 History Sulfate ER] Omeprazole 40 mg PO DAILY 07/24/23 07/24/23 History Aspirin 81 mg PO DAILY #90 tab 07/25/23 Rx Atorvastatin [Lipitor] 40 mg PO HS #90 tab 07/25/23 Rx Metoprolol Succinate (ER) [Toprol 25 mg PO DAILY #90 tab 07/25/23 Rx XL] Allergies Allergy/AdvReac Type Severity Reaction Status Date / Time No Known Allergies Allergy Verified 07/24/23 20:07 Physical Exam Vitals: Vital Signs Temp Pulse Pulse Resp BP BP Pulse Ox 07/25/23 07:59 98.1 F 72 15 136/66 94 L 07/25/23 04:00 97.9 F 70 19 112/62 92 L 07/25/23 00:00 97.9 F 74 19 127/75 95 07/24/23 20:49 98.0 F 73 19 140/76 97 07/24/23 20:48 78 18 140/70 97 07/24/23 18:30 81 14 119/85 97 07/24/23 18:00 89 14 116/90 97 07/24/23 17:31 98.3 F 96 18 135/84 99 Intake and Output 07/24/23 07/25/23 07/25/23 22:59 06:59 14:59 Other: Voiding Method Toilet Toilet # Voids 2 Weight 51.256 kg Results 07/25/23 08:39 07/25/23 08:39 Cardiac Enzymes 07/24/23 07/24/23 07/24/23 Range/Units 18:24 18:24 21:37 AST 25 (14-36) U/L Troponin I 0.051 H* 0.219 H* (0.000-0.034) ng/mL 07/25/23 Range/Units 00:15 AST (14-36) U/L Troponin I 0.215 H* (0.000-0.034) ng/mL Coagulation 07/24/23 07/25/23 Range/Units 18:24 00:15 PT 11.1 11.4 (10.0-12.5) sec APTT 21.8 L 24.4 (22.0-30.0) sec CBC 07/24/23 07/25/23 Range/Units 18:24 00:15 WBC 9.8 8.0 (3.8-10.6) k/uL RBC 4.14 4.06 (3.80-5.40) m/uL Hgb 12.8 12.4 (11.4-16.0) gm/dL Hct 38.1 37.8 (34.0-46.0) % Plt Count 263 243 (150-450) k/uL Comprehensive Metabolic Panel 07/24/23 Range/Units 18:24 Sodium 139 (137-145) mmol/L Potassium 3.7 (3.5-5.1) mmol/L Chloride 108 H (98-107) mmol/L Carbon Dioxide 23 (22-30) mmol/L BUN 11 (7-17) mg/dL Creatinine 0.73 (0.52-1.04) mg/dL Glucose 93 (74-99) mg/dL Calcium 9.2 (8.4-10.2) mg/dL AST 25 (14-36) U/L ALT 15 (4-34) U/L Alkaline Phosphatase 72 (38-126) U/L Total Protein 6.5 (6.3-8.2) g/dL Albumin 3.8 (3.5-5.0) g/dL Current Medications Generic Name Dose Route Start Last Admin Trade Name Freq PRN Reason Stop Dose Admin Heparin Sodium (Porcine) 0 unit 07/24/23 23:52 Heparin Sodium 1,000 Un/Ml (10ml Vl) IV PER PROTOCOL PRN Low PTT Protocol Sodium Chloride 1,000 mls @ 75 mls/hr 07/24/23 19:45 07/24/23 19:57 Saline 0.9% IV 75 mls/hr .[id number] SHERINE Administration Morphine Sulfate 4 mg 07/24/23 19:41 07/24/23 22:19 Morphine Sulfate 4 Mg/Ml Syringe IV 4 mg Q4HR PRN Administration Severe Pain (Scale 7 to 10) Naloxone HCl 0.2 mg 07/24/23 19:41 Naloxone 0.4 Mg/Ml 1 Ml Vial IV Q2M PRN Opioid Reversal Ondansetron HCl 4 mg 07/24/23 19:41 Ondansetron 4 Mg/2 Ml Vial IVP Q8HR PRN Nausea And Vomiting Intake and Output 07/24/23 07/25/23 07/25/23 22:59 06:59 14:59 Other: Voiding Method Toilet Toilet # Voids 2 Weight 51.256 kg 07/25/23 00:15 07/24/23 18:24
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
--- NOTE | 2023-07-25 12:42 | CA ---
Transthoracic Echo Report Name: Nila Mann Age: 78 Gender: F : 1945 Exam Date: 07/25/2023 10:37 Exam Location: [place] [facility] Ht (in): 59 Wt (lb): 113 Ordering Physician: Lily Sanders Attending/Referring Phys: [id number], Marilyn Auto Air Conditioning Apprentice Abida Newman RDCS Procedure CPT: Indications: LV function Cardiac Hx: HTN Technical Quality: Good Contrast 1: Total Dose (mL): Contrast 2: Total Dose (mL): MEASUREMENTS (Male / Female) Normal Values 2D ECHO LV Diastolic Diameter PLAX 4.0 cm 4.2 - 5.9 / 3.9 - 5.3 cm LV Systolic Diameter PLAX 2.7 cm IVS Diastolic Thickness 0.8 cm 0.6 - 1.0 / 0.6 - 0.9 cm LVPW Diastolic Thickness 0.8 cm 0.6 - 1.0 / 0.6 - 0.9 cm LV Relative Wall Thickness 0.4 RV Internal Dim ED PLAX 3.0 cm LA Systolic Diameter LX 3.0 cm 3.0 - 4.0 / 2.7 - 3.8 cm LV Diastolic Volume MOD 4C 36.4 cm??? LV Systolic Volume MOD 4C 21.5 cm??? LV Ejection Fraction MOD 4C 40.9 % LV Cardiac Index MOD 4C 879.9 cm???/min???m??? LV Diastolic Length 4C 5.8 cm LV Systolic Length 4C 4.9 cm LV Diastolic Volume MOD 2C 23.5 cm??? LV Systolic Volume MOD 2C 10.5 cm??? LV Ejection Fraction MOD 2C 55.5 % LV Cardiac Index MOD 2C 772.4 cm???/min???m??? LV Diastolic Length 2C 6.4 cm LV Systolic Length 2C 5.7 cm LA Volume 40.5 cm??? 18 - 58 / 22 - 52 cm??? LA Volume Index 27.6 cm???/m??? 16 - 28 cm???/m??? M-MODE Aortic Root Diameter MM 2.7 cm MV E Point Septal Separation 0.8 cm AV Cusp Separation MM 1.9 cm DOPPLER AV Peak Velocity 120.6 cm/s AV Peak Gradient 5.8 mmHg MV Area PHT 3.0 cm??? Mitral E Point Velocity 69.6 cm/s Mitral A Point Velocity 89.6 cm/s Mitral E to A Ratio 0.8 MV Deceleration Time 253.4 ms MV E' Velocity 5.8 cm/s Mitral E to MV E' Ratio 12.1 TR Peak Velocity 245.3 cm/s TR Peak Gradient 24.1 mmHg Right Ventricular Systolic Press 29.0 mmHg FINDINGS Left Ventricle Left ventricular ejection fraction is estimated at 55 %. Left ventricular cavity size normal. Left ventricular wall thickness normal. Right Ventricle Normal right ventricular size. Right ventricular systolic pressure within normal limits. Right Atrium Normal right atrial size. Left Atrium Normal left atrial size. Mitral Valve Structurally normal mitral valve. Trace mitral regurgitation. Aortic Valve Trileaflet aortic valve. Trace aortic regurgitation. Tricuspid Valve Structurally normal tricuspid valve. Mild tricuspid regurgitation. Pulmonic Valve Structurally normal pulmonic valve. No pulmonic regurgitation. Pericardium No pericardial effusion. Probable fat pad Aorta Normal size aortic root and proximal ascending aorta. CONCLUSIONS Normal LV size and systolic function. Mild mitral and tricuspid regurgitation. No pericardial effusion. Probable fat pad. No Pulmonary hypertension. Previewed by: Dr. Montez Dick MD (Electronically Signed) Final Date: 25 July 2023 12:41
[2023-07-25 16:19] LABS: Chol/HDL Ratio 2.65 Ratio; LDL Cholesterol,Calculated 57.6 mg/dL (0.0-131.0)
--- NOTE | 2023-07-25 17:14 | P.PN ---
Progress Note - Text Patient go home from a cardiac standpoint We will see her in the next few weeks She will continue aspirin metoprolol and atorvastatin I will schedule her for an EP study /ablation
[2023-07-25] MEDS ORDERED: METOCLOPRAMIDE 5 MG/ML 2 ML VIAL IVP PRN (17:22)
[2023-07-25] MEDS: ALPRAZolam 0.5 MG TAB PO SCH (20:33)
[2023-07-25] MEDS ORDERED: ATORVASTATIN 40 MG TAB PO SCH (21:00)
[2023-07-26] MEDS ORDERED: LEVOTHYROXINE 25 MCG TAB PO SCH (06:30)
[2023-07-26] MEDS ORDERED: ACETAMINOPHEN TAB 325 MG TAB PO PRN (06:40)
[2023-07-26] MEDS ORDERED: PANTOPRAZOLE 40 MG TABLET PO SCH (07:30)
[2023-07-26] MEDS: METOPROLOL SUCCINATE (ER) 25 MG TAB.ER.24H PO SCH (08:54)
[2023-07-26] MEDS: ASPIRIN 81 MG PO SCH (08:54)
[2023-07-26] MEDS: ALPRAZolam 0.5 MG TAB PO SCH (08:54)
[2023-07-26] MEDS ORDERED: oxyBUTYnin chloride 5 MG TAB PO SCH (09:00)
[2023-07-26 09:10] VITALS: TEMP 98
--- NOTE | 2023-07-26 10:52 | XR ---
EXAMINATION TYPE: XR abdomen acute w cxr DATE OF EXAM: 07/26/2023 10:36 AM CLINICAL INDICATION:Female, 78 years old with history of abd pain, vomiting; PHH COMPARISON: None. TECHNIQUE: Two radiographic views of the abdomen (upright and supine) and a frontal chest radiograph were obtained. FINDINGS CHEST: Lungs/Pleura: The lungs are clear. There is no evidence of pleural effusion, focal consolidation or p neumothorax. Mediastinum: Unremarkable. Vasculature: Normal. Heart: Normal in size. Musculoskeletal: The osseous structures are intact. Other findings: No significant. FINDINGS ABDOMEN: Bowel gas pattern: Normal without dilated loops of small or large bowel. Fecal material and gas are d emonstrated throughout the colon and rectum. Abnormal calcifications: None. Musculoskeletal: Normal. Other: None. IMPRESSION: 1. No radiographic evidence for acute abdominal process. 2. No acute cardiopulmonary process
[2023-07-26 11:23] LABS: ALT 12 U/L (4-34); AST 21 U/L (14-36); Amylase <30 U/L (30-110); Lipase 23 U/L (23-300)
--- NOTE | 2023-07-26 13:11 | P.PN ---
Subjective HISTORY OF PRESENT ILLNESS: This is a 78-year-old female with a past medical history significant for hypothyroidism, hyperlipidemia, anxiety, and hiatal hernia repair. Patient does not follow with a human resources hr generalist. We have been asked to see the patient in consultation for SVT. Patient examined at the bedside. Patient states yesterday she was in her kitchen cooking when she began to feel lightheaded. She also reports having palpitations. She states that she went to lay down on the couch for about 15 minutes and when she got up she continued to have palpitations and felt nauseous. Her daughter took her blood pressure and was found to be 100/50. She states her blood pressure usually runs in the 120s. However her heart rate was noted to be in the 160s. Her daughter tried having her cough and also applied ice packs to her and noted her heart rate to come down but was unable to keep her heart rate controlled so they called EMS. Patient was found to be in SVT. She received 6mg of adenosine per EMS with conversion to sinus mechanism. She is maintaining sinus mechanism this morning. She denies chest pain or pressure. Denies shortness of breath. She denies any previous history of cardiac arrhythmias * EKG reveals sinus mechanism with no signs of acute ischemia * Chest xray negative for acute process * Laboratory data: TSH 1.410. Troponin 0.051. 0.219. 0.215. * Current home cardiac medications include atorvastatin 20 mg daily * Most recent echocardiogram obtained in April 2020 revealed ejection fraction 60-65%, trace to mild MR, and mild TR 07/26/2023 Patient examined this morning at the bedside. Patient denies chest pain or pressure. She denies shortness of breath. Echocardiogram completed revealing ejection fraction 55% mild tricuspid regurgitation and mild mitral re gurgitation. No further episodes of SVT. Patient reports she was nauseous yesterday and had multiple episodes of vomiting. She states she is feeling better this morning. PHYSICAL EXAM: VITAL SIGNS: Reviewed. GENERAL: Well-developed in no acute distress. HEENT: Head is normocephalic. Pupils are equal, round. Sclerae anicteric. Mucous membranes of the mouth are moist. Neck supple. No JVD or thyromegaly LUNGS: Respirations even and unlabored. Lungs essentially clear to auscultation bilaterally. HEART: Regular rate and rhythm. S1 and S2 heard. ABDOMEN: Soft. Nondistended. Nontender. EXTREMITIES: Normal range of motion. No clubbing or cyanosis. Peripheral pulses intact. No lower extremity edema NEUROLOGIC: Awake and alert. Oriented x 3. 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 Ac Patient may be discharged home today from a cardiac standpoint She is to follow up in office in one week We will sign off. Please reconsult if needed. Nurse practitioner note has been reviewed by physician. Signing provider agrees with the documented findings, assessment, and plan of care. Objective - Vital Signs Vital signs: Vital Signs Temp 98.0 F 07/26/23 08:51 Pulse 67 07/26/23 11:33 Resp 18 07/26/23 11:33 BP 92/60 07/26/23 11:33 Pulse Ox 94 L 07/26/23 11:33 FiO2 Intake & Output 07/25/23 07/26/23 07/26/23 18:59 06:59 18:59 Intake Total 62.33 75 118 Balance 62.33 75 118 Intake: Intake, IV Titration 62.33 75 Amount Heparin Sod,Pork in 0.45% 62.33 NaCl 25,000 unit In 0.45 % NaCl 1 250ml.bag @ 12 UNITS/KG/HR 6.151 mls/hr IV .Q24H SHERINE Rx#: [id number] Sodium Chloride 0.9% 1, 75 000 ml @ 75 mls/hr IV . [id number] SHERINE Rx#:[id number] Oral 118 Other: Voiding Method Toilet Toilet Toilet # Voids 2 1 1 # Emeses 2 - Labs CBC & Chem 7: 07/25/23 08:39 07/25/23 08:39 Labs: Abnormal Lab Results - Last 24 Hours (Table) 07/25/23 07/25/23 07/26/23 Range/Units 08:48 08:48 08:05 Hemoglobin A1c 6.2 H (<=6.0) % Troponin I 0.044 H* (0.000-0.034) ng/mL Triglycerides 151.00 H (0.00-149.00) mg/dL Amylase (30-110) U/L 07/26/23 07/26/23 Range/Units 08:05 11:08 Hemoglobin A1c (<=6.0) % Troponin I 0.044 H* (0.000-0.034) ng/mL Triglycerides (0.00-149.00) mg/dL Amylase <30 L (30-110) U/L
--- NOTE | 2023-07-26 14:20 | FL ---
EXAMINATION TYPE: FL UGI w esophagus DATE OF EXAM: 07/26/2023 1:29 PM CLINICAL INDICATION:Female, 78 years old with history of nausea and vomiting with Hx hiatal hernia; COMPARISON: 07/16/2022 TECHNIQUE: The procedure was explained and patient history elicited. All patient questions were ans wered prior to start of procedure. A fruit loader machine operator radiograph of the abdomen was also reviewed. Multiple flu oroscopic spot images of the esophagus, stomach and duodenum were obtained following ingestion of liq uid barium and EZ-gas crystals. Fluoroscopic time: 1 minute 26 Fluoroscopic images: 0 Radiographs taken: 102 DAP: 2421.58 mGym2 FINDINGS: The esophagus appears dilated without evidence of focal stricture, ulceration or abnormal focal outpo uching. No hiatal hernia was visualized. There was gastroesophageal reflux identified on both stand ing and prone imaging. Tertiary contractions are seen throughout the esophagus. The stomach and duodenum demonstrate a normal course and contour. There is no evidence of focal eula huang or duodenal ulceration, stricture, or abnormal outpouching. IMPRESSION: Dilated patulous esophagus with esophageal dysmotility and reflux.
--- NOTE | 2023-07-26 14:27 | P.GSCN ---
History of Present Illness Consult date: 07/26/23 History of present illness: CHIEF COMPLAINT: Elevated heart rate Reason for consult abdominal pain with vomiting HISTORY OF PRESENT ILLNESS: This is a 78-year-old female who presented to the hospital with evidence of SVT. She has been evaluated by cardiology. The rec ommending an ablation outpatient. Patient has a known history of large hiatal hernia repair in May 2022 at [facility]. She reports since that surgery she has chronic abdominal pain. However, over the last 2 days she's been having pain in upper middle abdomen with nausea and vomiting. She reports having regular bowel movements. Her last EGD and colonoscopy was in March 2023 and results had shown mild reflux esophagitis. No esophageal stricture. 3 mm sigmoid polyp with biopsy and scattered sigmoid diverticulosis. Patient reports that she is feeling better today. She is able to tolerate diet. Abdominal pain has improved. Denies any fever chills or sweats. PAST MEDICAL HISTORY: See below PAST SURGICAL HISTORY: See below MEDICATIONS: See below ALLERGIES: See below SOCIAL HISTORY: No illicit drug use. REVIEW OF SYSTEMS: CONSTITUTIONAL: Denies fever or chills. HEENT: Denies blurred vision, vision changes, or eye pain. Denies hemoptysis CARDIOVASCULAR: Denies chest pain or pressure. RESPIRATORY: No shortness of breath. GASTROINTESTINAL: See HPI for pertinent findings HEMATOLOGIC: Denies bleeding disorders. GENITOURINARY: Denies any blood in urine or increased urinary frequency. SKIN: Denies pruitis. Denies rash. PHYSICAL EXAM: VITAL SIGNS: Reviewed GENERAL: Well-developed in no acute distress. HEENT: No sclera icterus. Extraocular movements grossly intact. Moist buccal mucosa. Head is atraumatic, normocephalic. No nasal drainage. ABDOMEN: Soft. Nondistended. Nontender NEUROLOGIC: Alert and oriented. Cranial nerves II through XII grossly intact. LABORATORY DATA: WBC 8.1 Hgb 12.3 platelets 249 Sodium is 140 potassium 3.8 creatinine 0.57 Hemoglobin A1c 6.2 Elevated troponins IMAGING: Acute abdominal series no evidence of acute abdominal process. No acute cardiopulmonary process. ASSESSMENT: 1. Abdominal pain with vomiting 2. History of large hiatal hernia status post repair in May 2022 3. SVT management cardiology 4. Abnormal troponins, type II MT secondary to oxygen supply demand mismatch seen by cardiology 5. Hyperlipidemia 6. Hypothyroidism 7. Anxiety PLAN: -Upper GI with barium ordered for further evaluation of patient's abdominal pain and vomiting -Continue regular diet -Further recommendations forthcoming per test results Physician Ladies' Locker Room Attendant note has been reviewed by physician. Signing provider agrees with the documented findings, assessment, and plan of care. Past Medical History Past Medical History: GERD/Reflux, Hyperlipidemia, Musculoskeletal Disorder, Osteoarthritis (OA), Skin Disorder, Thyroid Disorder Additional Past Medical History / Comment(s): HX KIDNEY STONES, HIATAL HERNIA, OSTEOPOROSIS. "Gets rash when stressed out." History of Any Multi-Drug Resistant Organisms: None Reported Past Surgical History: Hernia Repair, Hysterectomy Additional Past Surgical History / Comment(s): CYST ON TAILBONE REMOVED, BILATERAL CATARACT SURGERY, RIGHT EYE SURGERY, hiatal hernia repair 05/18/22, right eye surgery May 2021-had an emacular hole, barium swallow. EGD/colonoscopy Past Anesthesia/Blood Transfusion Reactions: No Reported Reaction Past Psychological History: Anxiety Smoking Status: Former smoker Past Alcohol Use History: None Reported Additional Past Alcohol Use History / Comment(s): QUIT SMOKING 03/30, SMOKED 1 PACK PER WEEK. Past Drug Use History: None Reported - Past Family History Daughter(s) Family Medical History: Cancer Additional Family Medical History / Comment(s): CERVICAL CANCER. Mother Family Medical History: Cancer Additional Family Medical History / Comment(s): CERVICAL CANCER. Medications and Allergies Home Medications Medication Instructions Recorded Confirmed Type Levothyroxine Sodium [Synthroid] 25 mcg PO DAILY 04/15/19 07/24/23 History ALPRAZolam [Xanax] 0.5 mg PO BID 02/01/22 07/24/23 History Ergocalciferol (Vitamin D2) 1,250 mcg PO Q14D 02/01/22 07/24/23 History [Drisdol (50,000 Iu)] Oxybutynin Chloride 5 mg PO DAILY 02/01/22 07/24/23 History Hyoscyamine Sulfate [Hyoscyamine 0.375 mg PO BID 07/24/23 07/24/23 History Sulfate ER] Omeprazole 40 mg PO DAILY 07/24/23 07/24/23 History Aspirin 81 mg PO DAILY #90 tab 07/25/23 Rx Atorvastatin [Lipitor] 40 mg PO HS #90 tab 07/25/23 Rx Metoprolol Succinate (ER) [Toprol 25 mg PO DAILY #90 tab 07/25/23 Rx XL] Allergies Allergy/AdvReac Type Severity Reaction Status Date / Time No Known Allergies Allergy Verified 07/24/23 20:07 Surgical - Exam Vital Signs Temp Pulse Resp BP Pulse Ox 98.3 F 96 18 135/84 99 07/24/23 17:31 07/24/23 17:31 07/24/23 17:31 07/24/23 17:31 07/24/23 17:31 Results - Labs 07/25/23 08:39 07/25/23 08:39 Abnormal Lab Results - Last 24 Hours (Table) 07/25/23 07/25/23 07/26/23 Range/Units 08:48 08:48 08:05 Hemoglobin A1c 6.2 H (<=6.0) % Troponin I 0.044 H* (0.000-0.034) ng/mL Triglycerides 151.00 H (0.00-149.00) mg/dL Amylase (30-110) U/L 07/26/23 07/26/23 Range/Units 08:05 11:08 Hemoglobin A1c (<=6.0) % Troponin I 0.044 H* (0.000-0.034) ng/mL Triglycerides (0.00-149.00) mg/dL Amylase <30 L (30-110) U/L Diabetes panel 07/25/23 07/25/23 07/26/23 Range/Units 08:48 08:48 08:05 Hemoglobin A1c 6.2 H (<=6.0) % AST 21 (14-36) U/L ALT 12 (4-34) U/L Triglycerides 151.00 H (0.00-149.00) mg/dL HDL Cholesterol 53.20 (40.00-60.00) mg/dL Adrenal panel 07/26/23 Range/Units 08:05 AST 21 (14-36) U/L ALT 12 (4-34) U/L
[2023-07-26] MEDS: SODIUM CHLORIDE 0.9% 1,000 ML IV SCH (15:06)
[2023-07-26 16:09] VITALS: BP 101/59; PULSE 69; RESP 15
--- NOTE | 2023-07-26 16:16 | P.DS ---
Providers Date of admission: 07/24/23 19:41 Expected date of discharge: 07/26/23 Attending physician: Ihsan Mcdermott Consults: 07/24/23 19:41 Consult Physician Routine Consulting Provider: Johnny Ac Consult Reason/Comments: svt Do you want consulting provider notified?: Yes 07/25/23 17:22 Consult Physician Urgent Consulting Provider: Cheryl Gomez Consult Reason/Comments: abd pain, vomitting, not tolerating food. Do you want consulting provider notified?: Already Contacted Primary care physician: Ihsan Mcdermott Discharge summary Date of service 07/26/[address] Mcdermott. Consulting physician #1 Dr. Ac cardiology evaluation and cleared for discharge for SVT and abnormal troponin #2 Dr. Hurt surgery for abdominal pain cleared her for discharge Procedure Echocardiogram Upper GI with barium. Final diagnosis: #1 SVT was recurrent at home, none during the hospital #2 abnormal troponin cardiology indicating stype 2 VA secondary to oxygen supply and demand mismatch #3 hyperlipidemia #4 hypothyroidism #5 and anxiety neurosis. #6 dilated acute less esophagus with gastroesophageal dysmotility and reflux. ER presentation: Presented to the emergency room with the recurrent palpitation no syncopal episode or near syncopal episode but she was weak and had some discomfort in the chest. Hospital course: Patient seen evaluated in the emergency room consultation with the cardiology, seen by Dr. Ac and she have echocardiogram and he discussed with her future EP studies subsequently patient cleared for discharged home and plays that her on Lipitor and beta blockers prescription Road by [facility] and to follow with cardiology Dr. Ac one week and he released her Patient had developed severe nausea and vomiting and subsequently consultation with Dr. Hurt the surgeon and esophagogram was upper GI was ordered found that she had patulous esophagus. And no hiatal hernia. Patient has been followed as outpatient by Kaveh Bautista proced tech which she will be following with her as outpatient as found that she has also dysmotility of the esophagus. As patient cleared by Dr. Hurt to be discharged also home. Examination on discharge: Patient's conscious alert oriented 3 Vital sign temperature 98.0 F oral, pulse rate 62 bpm, respiratory rate 18/m, blood pressure 101/59 with a mean 73, oxygen saturation 94% on room air. Patient's conscious alert oriented 3 head was normocephalic and atraumatic pupil was equal reactive oropharynx was negative Neck was supple no JVD no thyromegaly no lymphadenopathy trachea midline. Chest clear to auscultation percussion Heart regular sinus rhythm no recurrent of SVT Abdomen soft positive bowel sounds today no nausea no vomiting stable. Extremity no edema positive pulses Neurologically stable for discharge Assessment: Stable general condition to be discharged home today as also cleared by cardiology as well as the surgeon. Plan to follow Dr. Ac as well as Dr. Katrin Paredes the proced tech and to follow-up with me in 5-7 days Patient Condition at Discharge: Serious Plan - Discharge Summary Discharge Rx Participant: Yes New Discharge Prescriptions: New Aspirin 81 mg PO DAILY #90 tab Atorvastatin [Lipitor] 40 mg PO HS #90 tab Metoprolol Succinate (ER) [Toprol XL] 25 mg PO DAILY #90 tab Continue Levothyroxine Sodium [Synthroid] 25 mcg PO DAILY Oxybutynin Chloride 5 mg PO DAILY Ergocalciferol (Vitamin D2) [Drisdol (50,000 Iu)] 1,250 mcg PO Q14D ALPRAZolam [Xanax] 0.5 mg PO BID Omeprazole 40 mg PO DAILY Hyoscyamine Sulfate [Hyoscyamine Sulfate ER] 0.375 mg PO BID Discontinued Atorvastatin [Lipitor] 20 mg PO HS Discharge Medication List Levothyroxine Sodium [Synthroid] 25 mcg PO DAILY 04/15/19 [History] ALPRAZolam [Xanax] 0.5 mg PO BID 02/01/22 [History] Ergocalciferol (Vitamin D2) [Drisdol (50,000 Iu)] 1,250 mcg PO Q14D 02/01/22 [History] Oxybutynin Chloride 5 mg PO DAILY 02/01/22 [History] Hyoscyamine Sulfate [Hyoscyamine Sulfate ER] 0.375 mg PO BID 07/24/23 [History] Omeprazole 40 mg PO DAILY 07/24/23 [History] Aspirin 81 mg PO DAILY #90 tab 07/25/23 [Rx] Atorvastatin [Lipitor] 40 mg PO HS #90 tab 07/25/23 [Rx] Metoprolol Succinate (ER) [Toprol XL] 25 mg PO DAILY #90 tab 11/16/23 [Rx] Follow up Appointment(s)/Referral(s): Johnny Ac MD [STAFF PHYSICIAN] - 2 Weeks (Follow-up with Dr. Ac/Allyn Lepe in 2-3 weeks) Katrin Lo MD [STAFF PHYSICIAN] - 1 Week Ihsan Mcdermott MD [Primary Care Provider] - 1-2 days Patient Instructions/Handouts: Supraventricular Tachycardia (DC) Activity/Diet/Wound Care/Special Instructions: Take metoprolol for suppression of SVT Stop metoprolol 3 days prior to EP study and ablation Daily baby aspirin and atorvastatin Discharge Disposition: HOME SELF-CARE
[2023-08-09] MEDS ORDERED: ERGOCALCIFEROL 1,250 MCG (50,000 IU) CAPSULE PO SCH (09:00)
== END 2023-07-26 17:08 | disposition home or self-care (01) ==
LOC: EC 17:30 → 3SCARD 19:41 → INTOOBSV 19:41 → 3SCARD 21:16 → UNDODISIN 07-26 17:08
PROVIDERS: ADMIT Internal Medicine; ATTEND Internal Medicine
DX: I47.19 Other supraventricular tachycardia (principal); R79.89 Other specified abnormal findings of blood chemistry; E03.9 Hypothyroidism, unspecified; F41.9 Anxiety disorder, unspecified; E78.5 Hyperlipidemia, unspecified; I10 Essential (primary) hypertension; K21.9 Gastro-esophageal reflux disease without esophagitis; J44.9 Chronic obstructive pulmonary disease, unspecified; Z87.891 Personal history of nicotine dependence; Z79.82 Long term (current) use of aspirin; Z79.890 Hormone replacement therapy; Z79.899 Other long term (current) drug therapy
CPT/HCPCS: 96376; 96361 ×2; 96374; 96375; 99291; 36415; 93005; 93306; 83880; 80061; 80053 ×2; 82150; 83690; 83735 ×2; 84100 ×2; 84443; 84450; 84460; 84484 ×3; 85025 ×2; 85610 ×2; 85730 ×2; 83036; 74022; 74240; 71046; G0378 ×3; J2270 ×2; J2765; J2405; J1644 ×2

== ENCOUNTER → 2023-09-11 | Outpatient (CLI) | payer MEDICARE ==
--- NOTE | 2023-09-11 14:17 | XR ---
EXAMINATION TYPE: XR shoulder complete RT DATE OF EXAM: 09/11/2023 COMPARISON: NONE HISTORY: Pain TECHNIQUE: Shoulder examined in 3 projections. FINDINGS: The humeral head articulates with the glenoid. The acromio-clavicular junction is normal. No acute fractures or dislocations are evident. A follow up study can be performed 7-10 days from acute trauma for continued pain. MRI can be perfor med if soft tissue evaluation would be of benefit. IMPRESSION: 1. No acute osseous shoulder abnormality.
== END | disposition home or self-care (01) ==
LOC: RADXRMAIN 13:48
PROVIDERS: ATTEND Internal Medicine
DX: S46.211A Strain of muscle, fascia and tendon of other parts of biceps, right arm, initial encounter (principal)

== ENCOUNTER → 2023-09-27 | Outpatient (CLI) | payer MEDICARE ==
[2023-09-27 15:23] LABS: HCT 40.5 % (37.2-46.3); HGB 12.7 g/dL (12.0-15.0); MCH 29.5 pg (27.0-32.0); MCHC 31.4 g/dL (32.0-37.0); MCV 94.2 FL (80.0-97.0); Mean Platelet Volume 10.2 FL (9.5-12.2); NRBC Per 100 WBC 0 X 10*3/uL (0.00-0.01); Platelet Count 356 X 10*3/uL (140-440); RDW 12.8 % (11.5-14.5); WBC 13.23 X 10*3/uL (4.50-10.00)
[2023-09-27 16:09] LABS: Blood Urea Nitrogen 10.5 mg/dL (9.0-27.0); Carbon Dioxide 22.1 mmol/L (21.6-31.8); Chloride 106 mmol/L (96-109); Potassium 4.1 mmol/L (3.5-5.5); Sodium 141 mmol/L (135-145)
== END | disposition home or self-care (01) ==
LOC: LABPAT 10:54
PROVIDERS: ATTEND Internal Medicine Clinical Cardiac Electrophysiology
DX: Z01.812 Encounter for preprocedural laboratory examination (principal); I47.19 Other supraventricular tachycardia
CPT/HCPCS: 80051; 82565; 84520; 85027

== ENCOUNTER 2023-09-30 08:34 | Observation (INO) | payer MEDICARE ==
[2023-09-27 14:58] VITALS: BMI 24.0
[2023-09-30] MEDS: SODIUM CHLORIDE 0.9% 1,000 ML IV SCH ×2 (09:36→20:41)
[2023-09-30 09:45] LABS: Basophils # (A) 0.1 k/uL (0-0.2); Basophils % (A) 1 %; Eosinophils # (A) 0.3 k/uL (0-0.7); Eosinophils % (A) 3 %; HCT 38.4 % (34.0-46.0); HGB 12.5 gm/dL (11.4-16.0); Lymphocytes # (A) 2.9 k/uL (1.0-4.8); Lymphocytes % (A) 28 %; MCH 30.1 pg (25.0-35.0); MCHC 32.7 g/dL (31.0-37.0); MCV 92.1 fL (80.0-100.0); Mean Platelet Volume 7.5; Monocytes # (A) 0.3 k/uL (0-1.0); Monocytes % (A) 3 %; Neutrophils # (A) 6.9 k/uL (1.3-7.7); Neutrophils % (A) 65 %; Platelet Count 317 k/uL (150-450); RBC 4.17 m/uL (3.80-5.40); RDW 13.1 % (11.5-15.5); WBC 10.5 k/uL (3.8-10.6)
[2023-09-30 10:17] LABS: African American GFR (CKD) 90 (>60 ml/min/1.73 sqM); Anion Gap 5 mmol/L; Blood Urea Nitrogen 12 mg/dL (7-17); Calcium 9.3 mg/dL (8.4-10.2); Carbon Dioxide 25 mmol/L (22-30); Chloride 108 mmol/L (98-107); Glucose 95 mg/dL (74-99); Non-African American GFR(CKD) 78 (>60 ml/min/1.73 sqM); Potassium 3.7 mmol/L (3.5-5.1); Sodium 138 mmol/L (137-145)
[2023-09-30] MEDS ORDERED: LIDOCAINE 1% INJ 10MG/ML (20 ML MDV) ONE ×2 (11:36→12:16)
[2023-09-30] MEDS ORDERED: LIDOCAINE 1% INJ 10MG/ML (20 ML MDV) SQ ONE ×2 (12:10→12:20)
[2023-09-30] MEDS ORDERED: HEPARIN SODIUM (1,000 UNIT/ML) 1,000 UNIT in SODIUM CHLORIDE 0.9% 1,000 ML IRRIGATION ONE (12:57)
[2023-09-30] MEDS ORDERED: ACETAMINOPHEN IV (For NPO) 1,000 MG in EMPTY BAG 1 BAG IVPB ONE (15:30)
--- NOTE | 2023-09-30 16:08 | P.HPCAR ---
History of Present Illness This is Dr. 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 associated with near syncope Associated hypotension Associated mildly abnormal troponins Gastroesophageal surgery/hiatus hernia surgery at the [facility] Patient has had recurrent episodes of weakness and fatigue This was the first episode of SVT History of dyslipidemia, hypothymism on replacement therapy Preserved LV size and systolic function PLAN: Diagnostic EP study and radiofrequency ablation HPI Patient has had 1 episode of SVT She has also had episodes of weakness and fatigue and wants to lie down at that No recent chest discomfort no fever chills cough expectoration No recent syncope ROS: No fever chills or rigors, no cough, phlegm or expectoration, no nausea, vomiting or diarrhea, no hematuria, dysuria, no musculoskeletal complaints, no strokes or seizures, no skin lesions. EXAMINATION: Blood pressure 156/70 mmHg Heart sounds S1 and S2 normal Breath sounds are clear Extremities are warm no edema REVIEW OF LABS, ECG & MEDICAL DATA Normal echo Patient on levothyroxine, hyoscyamine, atorvastatin and aspirin This is Dr. 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 associated with near syncope Associated hypotension Associated mildly abnormal troponins Gastroesophageal surgery/hiatus hernia surgery at the [facility] Patient has had recurrent episodes of weakness and fatigue This was the first episode of SVT History of dyslipidemia, hypothymism on replacement therapy Preserved LV size and systolic function PLAN: Diagnostic EP study and radiofrequency ablation HPI Patient has had 1 episode of SVT She has also had episodes of weakness and fatigue and wants to lie down at that No recent chest discomfort no fever chills cough expectoration No recent syncope ROS: No fever chills or rigors, no cough, phlegm or expectoration, no nausea, vomiting or diarrhea, no hematuria, dysuria, no musculoskeletal complaints, no strokes or seizures, no skin lesions. EXAMINATION: Blood pressure 156/70 mmHg Heart sounds S1 and S2 normal Breath sounds are clear Extremities are warm no edema REVIEW OF LABS, ECG & MEDICAL DATA Normal echo Patient on levothyroxine, hyoscyamine, atorvastatin and aspirin Physical Exam Vitals: Vital Signs Temp Pulse Resp BP Pulse Ox 09/30/23 15:45 88 18 154/70 98 09/30/23 15:30 92 18 156/70 98 09/30/23 15:15 92 18 164/76 98 09/30/23 15:00 92 18 175/71 98 09/30/23 09:33 97.8 F 81 18 172/87 98 Intake and Output 09/30/23 09/30/23 09/30/23 06:59 14:59 22:59 Intake Total 231 Balance 231 Intake: IV 231 Other: Weight 51.5 kg Past Medical History Past Medical History: GERD/Reflux, Hyperlipidemia, Osteoarthritis (OA), Thyroid Disorder Additional Past Medical History / Comment(s): white coat syndrome, IBS states anxiety causes diarrhea and stomach pains., occasional nausea., occasional rash from anxiety., under active thyroid., hx kidney stones., recent fall from her bed and injured right shoulder/arm- states bursitis and will be receiving physical therapy ., states hx of rapid heart rate., See Cardiology H & P. History of Any Multi-Drug Resistant Organisms: None Reported Past Surgical History: Hernia Repair, Hysterectomy Additional Past Surgical History / Comment(s): tailbone cyst , elissa cataracts, hiatal hernia repair 05/18/22, right eye macular hole repair May 2021. Past Anesthesia/Blood Transfusion Reactions: Previous Problems w/ Anesthesia, Postoperative Nausea & Vomiting (PONV) Additional Past Anesthesia/Blood Transfusion Reaction / Comment(s): macular hole surgery = ponv Past Psychological History: Anxiety Smoking Status: Former smoker Past Alcohol Use History: None Reported Additional Past Alcohol Use History / Comment(s): QUIT SMOKING 03/30, SMOKED 1 PACK PER WEEK. Past Drug Use History: None Reported - Past Family History Daughter(s) Family Medical History: Cancer Additional Family Medical History / Comment(s): CERVICAL CANCER. Mother Family Medical History: Cancer Additional Family Medical History / Comment(s): CERVICAL CANCER. Physical Examination Vital Signs Temp Pulse Resp BP Pulse Ox 09/30/23 15:45 88 18 154/70 98 09/30/23 15:30 92 18 156/70 98 09/30/23 15:15 92 18 164/76 98 09/30/23 15:00 92 18 175/71 98 09/30/23 09:33 97.8 F 81 18 172/87 98 Intake and Output 09/30/23 09/30/23 09/30/23 06:59 14:59 22:59 Intake Total 231 Balance 231 Intake: IV 231 Other: Weight 51.5 kg Results 09/30/23 09:30 09/30/23 09:07 CBC 09/30/23 Range/Units 09:30 WBC 10.5 (3.8-10.6) k/uL RBC 4.17 (3.80-5.40) m/uL Hgb 12.5 (11.4-16.0) gm/dL Hct 38.4 (34.0-46.0) % Plt Count 317 (150-450) k/uL Comprehensive Metabolic Panel 09/30/23 Range/Units 09:07 Sodium 138 (137-145) mmol/L Potassium 3.7 (3.5-5.1) mmol/L Chloride 108 H (98-107) mmol/L Carbon Dioxide 25 (22-30) mmol/L BUN 12 (7-17) mg/dL Creatinine 0.75 (0.52-1.04) mg/dL Glucose 95 (74-99) mg/dL Calcium 9.3 (8.4-10.2) mg/dL Current Medications Generic Name Dose Route Start Last Admin Trade Name Freq PRN Reason Stop Dose Admin Acetaminophen 650 mg 09/30/23 15:02 Acetaminophen Tab 325 Mg Tab PO 10/30/23 15:03 Q6HR PRN Mild Pain (Scale 1 to 3) Alprazolam 0.5 mg 09/30/23 15:04 Alprazolam 0.5 Mg Tab PO 10/30/23 15:05 BID PRN Anxiety Aspirin 81 mg 10/01/23 09:00 Aspirin 81 Mg PO 10/31/23 09:01 DAILY SHERINE Atorvastatin Calcium 20 mg 09/30/23 21:00 Atorvastatin 20 Mg Tab PO 10/30/23 21:01 HS SHERINE Hyoscyamine 0.375 mg 09/30/23 21:00 Hyoscyamine Sulfate 0.375 Mg Tab.Er.12h PO 10/30/23 21:01 BID SHERINE Lactated Ringer's 1,000 mls @ 20 mls/hr 09/30/23 05:54 Lactated Ringers IV 10/30/23 05:55 .Q24H SHERINE Sodium Chloride 1,000 mls @ 50 mls/hr 09/30/23 05:54 09/30/23 09:36 Saline 0.9% IV 10/30/23 05:55 100 mls .Q20H SHERINE Administration Levothyroxine Sodium 25 mcg 10/01/23 06:30 Levothyroxine 25 Mcg Tab PO DAILY@0630 SHERINE Oxybutynin Chloride 5 mg 09/30/23 21:00 Oxybutynin Chloride 5 Mg Tab PO 10/30/23 21:01 BID SHERINE Sodium Chloride 12 ml 09/30/23 15:02 Sodium Chloride 0.9% Flush 10 Ml Syringe IV 10/30/23 15:03 Q12HR PRN Line Flush Intake and Output 09/30/23 09/30/23 09/30/23 06:59 14:59 22:59 Intake Total 231 Balance 231 Intake: IV 231 Other: Weight 51.5 kg Patient Weight 10/01/23 06:59 Weight 51.5 kg 09/30/23 09:30 09/30/23 09:07
--- NOTE | 2023-09-30 18:36 | P.EPPROC ---
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 When compared to the baseline MI interval the post ablation MI interval was identical. Details Patient was brought to the EP lab in a fasting state. Written informed consent was obtained prior to the procedure. Sheaths were placed in the right left femoral veins These diagnostic cath was positioned in the right heart in the high right atrium, His bundle area, right ventricle and coronary sinus A detailed EP study was performed Sinus cycle length 823 ms, MI interval 125 ms, QRS 93 ms and QT interval 404 ms AH interval 65 ms and HV interval 34 ms AV node Wenckebach block 330 ms Parahisian pacing revealed pratibha response Sinus node recovery times at 600, 504 100 ms were 900, 1971 and 1937 ms. Corresponding Mejia sinus recovery times abnormal During straight pacing SVT was induced SVT cycle length failure and 40 ms Short septal times VAV response revealed a long post-pacing interval consistent with AV pratibha reentry His refractory PVCs did not advance the tachycardia A long sheath and an irrigated tip catheter placed The His bundle was mapped The coronary sinus os was mapped and tagged both the floor in the roof Slow pathway was mapped 3 lesions are applied. Second RF lesion at 25W for 15 seconds resulted in junctional rhythm A second lesion was applied for 8 seconds no further junctional rhythm was obtained at the site These lesions were 1.3-1.4 cm away from the AV node/His bundle area right outside the coronary sinus Os, at its floor Later, we noticed 2-1 AV block that progressed to complete heart block This was not during the ablation but actually happened in between the ablations In fact she had an episode of block P-wave unrelated to the ablations, prior to ablation too Review of intracardiac electrograms in relation to the RF lesions revealed that there had been no gradual or minimal prolongation of the MI interval during RF ablation In fact in between the RF lesions the MI interval remained completely normal and there was sudden block P waves noted This was confirmed on the CART[employer] Mapping recordings that were reviewed At no point did the catheter jump up towards the fast pathway. In fact the catheter remained very stable, just outside the floor of the coronary sinus Isuprel was given and there was no improvement initially Isuprel was stopped there was absolute, complete recovery with complete normalization of the MI interval There was no evidence for first-degree AV block at all Thereafter Diagnostic catheter was manipulated on the posterior wall of the right atrium, far away from the AV node area, paroxysmal AV block was treated once again Once again he was absolute, complete recovery with complete normalization of AV node conduction. Complete normalization of the MI interval Both times the MI interval is back to normal at 125 ms On detailed questioning the patient has had gastroesophageal surgery about a year and half pack Thereafter she has had episodes of weakness and tiredness which she feels she wants to lie down At no point did she have dizziness or loss of consciousness related to these symptoms Recently she was experiencing a lot of pain and went into sudden rapid tachycardia At that time she was presyncopal and with near syncope That is when AV node reentry was first diagnosed. The manner in which the paroxysmal AV block occurred, unrelated the ablation lesions And sudden complete improvement in AV node function with complete normalization of the MI interval suggests that this is most likely autonomic in nature THIS was removed and the patient was transferred back to telemetry
[2023-09-30] MEDS: LACTATED RINGERS 1,000 ML IV SCH ×2 (18:38→20:53)
[2023-09-30] MEDS: oxyBUTYnin chloride 5 MG TAB PO SCH (20:40)
[2023-09-30] MEDS: ATORVASTATIN 20 MG TAB PO SCH (20:40)
[2023-09-30] MEDS: HYOSCYAMINE SULFATE 0.375 MG TAB.ER.12H PO SCH (20:40)
[2023-09-30] MEDS: ALPRAZolam 0.5 MG TAB PO PRN (20:43)
[2023-10-01] MEDS: LEVOTHYROXINE 25 MCG TAB PO SCH (06:02)
[2023-10-01] MEDS: HYOSCYAMINE SULFATE 0.375 MG TAB.ER.12H PO SCH ×2 (08:48→20:22)
[2023-10-01] MEDS: ASPIRIN 81 MG PO SCH (08:48)
[2023-10-01] MEDS: oxyBUTYnin chloride 5 MG TAB PO SCH ×2 (08:48→20:22)
[2023-10-01] MEDS: ACETAMINOPHEN TAB 325 MG TAB PO PRN ×2 (09:55→20:26)
[2023-10-01] MEDS ORDERED: SODIUM CHLORIDE 0.9% 1,000 ML IV SCH ×2 (13:30)
--- NOTE | 2023-10-01 14:30 | P.EPPROC ---
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 Patient has a history of recurrent SVT with near syncope Paroxysmal AV block independent of ablation and consistent with a history of sudden intermittent tiredness and fatigue This is not a complication of the procedure. Likely neurocardiogenic, sudden and abrupt and then complete normalization of AV node conduction times. Repetitive, in the fully wakeful state Gastro esophageal junction surgery for hiatus hernia about 1 and half years back Has symptoms of tiredness and fatigue intermittently have occurred thereafter. Beta-blockers were not well-tolerated Plan Permanent pacemaker implantation for management of intermittent paroxysmal AV block on
[2023-10-01] MEDS ORDERED: NON FORMULARY DRUG (Acetaminophen [Tylenol Arthritis] 650 MG Tablet) PO PRN (16:41)
[2023-10-01] MEDS ORDERED: IBUPROFEN 600 MG TAB PO PRN (16:41)
--- NOTE | 2023-10-01 17:26 | P.CONS ---
History of Present Illness - Reason for Consult Consult date: 10/01/23 Medical management Requesting physician: Johnny Ac - History of Present Illness Medical consult Date of service 10/01/[address] briceño Patient seen and evaluated [id number] and discussed with her the current plan for Dr. Ac Patient will go for pacemaker placement on September. Patient admitted for electrophysiologic procedure by Dr. Ac. Patient had ablation and Her problem of syncopal and presyncopal episodes. His mild elevation of troponin due to supply and demand. 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 She had history of hypothyroidism and dyslipidemia. And anxiety neurosis. No smoking. No alcohol intake. Currently patient is status post procedure of ablation with the planning for pace maker permanent on next . Vital signs today temperature 98.2 F oral, pulse rate 78 bpm, respiratory rate 14/m, blood pressure 118/73, mean 88, oxygen saturation is 100% Patient is seen she has no specific complaint Her daughter at bedside. Patient is conscious alert oriented and able to communicate freely Head was normocephalic and atraumatic pupil was equal reactive conjunctiva was pink sclera was nonicteric extraocular muscle movement is intact. 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 She is seen in the past by Katrin Bautista for underlying upper abdominal pain and she treated her with medication that does have atropine. Extremities no edema and positive pulses. Psychiatry she has an anxiety neurosis chronic Neurologically stable. Assessment: #1 status post electrophysiologic studies by Dr. Elliott #2 future plan for pacemaker #3 history of upper abdominal discomfort and pain stable at this time. #4 dyslipidemia #5 hypothyroidism #6 and anxiety neurosis. Plan: #1 we'll continue same home medication #2 patient will going for permanent pacemaker on on 10/03/2023 #3 continue monitoring #4 will follow with you thank you for the consult Past Medical History Past Medical History: GERD/Reflux, Hyperlipidemia, Osteoarthritis (OA), Thyroid Disorder Additional Past Medical History / Comment(s): white coat syndrome, IBS states anxiety causes diarrhea and stomach pains., occasional nausea., occasional rash from anxiety., under active thyroid., hx kidney stones., recent fall from her bed and injured right shoulder/arm- states bursitis and will be receiving physical therapy ., states hx of rapid heart rate., See Cardiology H & P. History of Any Multi-Drug Resistant Organisms: None Reported Past Surgical History: Hernia Repair, Hysterectomy Additional Past Surgical History / Comment(s): tailbone cyst , elissa cataracts, hiatal hernia repair 05/18/22, right eye macular hole repair May 2021. Past Anesthesia/Blood Transfusion Reactions: Previous Problems w/ Anesthesia, P ostoperative Nausea & Vomiting (PONV) Additional Past Anesthesia/Blood Transfusion Reaction / Comm: macular hole surgery = ponv Past Psychological History: Anxiety Smoking Status: Former smoker Past Alcohol Use History: None Reported Additional Past Alcohol Use History / Comment(s): QUIT SMOKING 03/30, SMOKED 1 PACK PER WEEK. Past Drug Use History: None Reported - Past Family History Daughter(s) Family Medical History: Cancer Additional Family Medical History / Comment(s): CERVICAL CANCER. Mother Family Medical History: Cancer Additional Family Medical History / Comment(s): CERVICAL CANCER. Medications and Allergies Home Medications Medication Instructions Recorded Confirmed Type Levothyroxine Sodium [Synthroid] 25 mcg PO DAILY 04/15/19 09/30/23 History ALPRAZolam [Xanax] 0.5 mg PO BID PRN 02/01/22 09/30/23 History Ergocalciferol (Vitamin D2) 1,250 mcg PO Q14D 02/01/22 09/30/23 History [Drisdol (50,000 Iu)] Oxybutynin Chloride 5 mg PO BID 02/01/22 09/30/23 History Hyoscyamine Sulfate [Hyoscyamine 0.375 mg PO BID 07/24/23 09/30/23 History Sulfate ER] Aspirin 81 mg PO DAILY #90 tab 07/25/23 09/30/23 Rx Acetaminophen [Tylenol Arthritis] 650 mg PO DIRECTED PRN 09/27/23 09/30/23 History Atorvastatin [Lipitor] 20 mg PO HS 09/27/23 09/30/23 History Ibuprofen [Motrin] 600 mg PO DIRECTED PRN 09/27/23 09/30/23 History Allergies Allergy/AdvReac Type Severity Reaction Status Date / Time No Known Allergies Allergy Verified 09/30/23 09:07 Physical Exam Vitals: Vital Signs Temp Pulse Pulse Resp BP BP Pulse Ox 10/01/23 15:00 98.2 F 78 14 118/73 100 10/01/23 07:00 97.9 F 77 16 143/82 96 10/01/23 02:32 97.9 F 79 112/65 93 L 09/30/23 19:16 98.0 F 81 16 114/64 95 09/30/23 19:00 84 127/59 93 L 09/30/23 18:00 96 128/69 92 L Intake and Output 10/01/23 10/01/23 10/01/23 06:59 14:59 22:59 Intake Total 354 Balance 354 Intake: Oral 354 Other: # Voids 1 1 Results CBC & Chem 7: 09/30/23 09:30 09/30/23 09:07
[2023-10-01] MEDS: ATORVASTATIN 20 MG TAB PO SCH (20:22)
[2023-10-01] MEDS: ALPRAZolam 0.5 MG TAB PO PRN (20:22)
[2023-10-02] MEDS: LEVOTHYROXINE 25 MCG TAB PO SCH (05:32)
--- NOTE | 2023-10-02 08:00 | P.PN ---
Progress Note - Text Patient is doing well. She is resting comfortably in bed No chest discomfort dizziness or lightheadedness Groins have healed well Normal heart sounds Normal breath sounds Abdomen is soft nontender No swelling in both groins Heart rates have been in the 70s and 80s Blood pressure 130/77 mmHg Impression Successful ablation for AVNRT Sudden paroxysmal AV block unrelated to the ablation, spontaneous, during the EP study Over the last 48 hours there has been no further recurrence of any CT prolongation first-degree AV block second-degree AV block or third-degree block at all Her heart rates have been in the normal range. I called the chemical waste management technician and she looked through the last 24 to 48 hours and her heart rates have been in the 70s and 80s She has not even had bradycardia Today's plan Continue monitoring for the next 24 hours Walking treadmill test to assess AV conduction and to look for exercise-induced AV block Continue observation thereafter So far we have scheduled her for a permanent pacemaker on , but if she has no evidence for exercise-induced AV block and over the next 24 hours her heart rates and her AV conduction remained completely normal, I may opt for implantation of a loop monitor in place of a permanent pacemaker She is intolerant to beta-blockers before her admission and we had stopped it No beta-blockers no calcium channel amador such as Cardizem and verapamil, no digoxin Final decision tomorrow after 72 hours of telemetry monitoring and after reviewing the results of the stress test
[2023-10-02] MEDS: ASPIRIN 81 MG PO SCH (08:41)
[2023-10-02] MEDS: oxyBUTYnin chloride 5 MG TAB PO SCH ×2 (08:41→21:04)
[2023-10-02] MEDS: HYOSCYAMINE SULFATE 0.375 MG TAB.ER.12H PO SCH ×2 (08:41→21:04)
[2023-10-02] MEDS: ACETAMINOPHEN TAB 325 MG TAB PO PRN (15:46)
--- NOTE | 2023-10-02 16:28 | P.PN ---
Subjective Progress Note Date: 10/02/23 Progress note Date of service 10/02/[address] Mcdermott Vital sign: Temperature 97.2, heart rate ranging between 88-1 04, respiratory rate 20 normal breath sounds nonlabored, blood pressure 105/69 at 14: 08 However patient prior blood pressure today at 7 AM 158/78. Oxygen saturation has been stable on room air 96% and 94. 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 Patient none tolerance to beta-blockers or calcium channel blockers as verapamil, Cardizem, digoxin. Patient seen today by Dr. Ac EP manager of business, he is scheduled her for tomorrow loop recording or pacemaker dependent on the patient monitoring Patient so far is happy with what she had and did not report any presyncopal or dizziness or palpitation. On the exam: Head was normocephalic atraumatic and pupils equal reactive Oropharynx she had upper plate and lower natural teeth Neck was supple no JVD Chest is clear normal breath sounds with the mild kyphoscoliosis Heart was regular sinus rhythm Abdomen soft nontender no complaint of epigastric discomfort Extremities no edema and positive pulses. Assessment: No chest pain no chest discomfort no palpitation currently stable post ablation. Plan: Patient stated that she going to have tomorrow loop recording, with questionable pacemaker, and may go home tomorrow After the procedure if she is stable she will be going home and resume her home medication. Objective - Vital Signs Vital signs: Vital Signs Temp 97.2 F L 10/02/23 14:08 Pulse 104 H 10/02/23 14:08 Resp 20 10/02/23 14:08 BP 105/69 10/02/23 14:08 Pulse Ox 94 L 10/02/23 14:08 FiO2 Intake & Output 10/01/23 10/02/23 10/02/23 18:59 06:59 18:59 Intake Total 354 0 Balance 354 0 Intake: Oral 354 0 Other: Voiding Method Toilet Toilet # Voids 1 1 3 - Labs CBC & Chem 7: 09/30/23 09:30 09/30/23 09:07
[2023-10-02] MEDS: ATORVASTATIN 20 MG TAB PO SCH (21:04)
[2023-10-02] MEDS: ALPRAZolam 0.5 MG TAB PO PRN (21:07)
[2023-10-03 02:25] VITALS: RESP 16
[2023-10-03] MEDS: LEVOTHYROXINE 25 MCG TAB PO SCH (05:38)
[2023-10-03] MEDS: ACETAMINOPHEN TAB 325 MG TAB PO PRN (05:42)
[2023-10-03] MEDS ORDERED: ceFAZolin 1 GM in SODIUM CHLORIDE 0.9% IRRIG BTL 250 ML IRRIGATION PRN (07:00)
[2023-10-03] MEDS: ASPIRIN 81 MG PO SCH (08:46)
[2023-10-03] MEDS: HYOSCYAMINE SULFATE 0.375 MG TAB.ER.12H PO SCH (08:47)
[2023-10-03] MEDS: oxyBUTYnin chloride 5 MG TAB PO SCH (08:47)
--- NOTE | 2023-10-03 10:16 | CA ---
Exercise Stress Test Report Name: Nila Mann Exam Date: 10/02/2023 11:53 Exam Location: [facility] Ht (in): 58 Wt (lb): 113 BSA: 1.43 Ordering Phys: Johnny Ac MD Referring Phys: MICAH, Technologist: Abner Fay Age: 78 Gender: F : 1945 Procedure CPT: Indications: Pacemaker placement 10-02-2023 ICD-10 Codes: Patient History: ELEVATED CHOLESTEROL LEVELS, FAMILY HX OF HEART DISEASE, FORMER SMOKER Medications: Meds past 24 hrs: Pretest Chest Pain: STRESS TEST Guero Protocol Exercise Duration (min:sec): 04:[address] Depressions (mm): Angina Score: Cabral Score: Resting HR (bpm): 98 Peak HR (bpm): 130 Resting BP (mmHg): 136 / 94 Peak BP (mmHg): 173 / 75 MPHR: 144 Target HR: 122 % MPHR: 90 METS: 7.1 Total Dose: Peak Dose: Atropine: Double Product: 84504 BP Response: Stress Termination: TARGET HR REACHED/MAX EXERTION Stress Symptoms: NO SYMPTOMS Stress Summary: ECG ANALYSIS Resting ECG: Stress ECG: CONCLUSIONS Average exercise tolerance Mild EKG changes in response to exercise Dr. Mario Nichole MD (Electronically Signed) Final Date: 03 October 2023 10:15
--- NOTE | 2023-10-03 11:49 | P.PN ---
Progress Note - Text Patient is resting comfortably in bed Denies any chest discomfort, no undue shortness of breath no dizziness lightheadedness Ambulating around the room We have monitored her on telemetry for the last 72 hours after EP study She has not had any evidence for bradycardia and the lowest heart rate recorded has been 68 bpm She has no evidence for paroxysmal AV block at this time She underwent an exercise stress test yesterday and she exercised for about 5 minutes on a Guero protocol. 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 Heart rates around 45-55 beats a minute during that time Prolonged monitoring on telemetry did not reveal any CA prolongation, AV block or bradycardia over the last 3 days following EP study and ablation No evidence for exercise-induced AV block either History of hiatus hernia surgery in the [facility] with upper GI symptoms and recently started on hyoscyamine Episodes of tiredness and weakness at home Intolerance to AV pratibha blocking drugs requiring the discontinuation in the past Plan I had a detailed discussion with the patient and her daughter today After a complete reevaluation I would recommend holding off on permanent pacing and proceed with implantation of a loop monitor If she has spontaneous episodes of AV block on the loop monitor, we will proceed with implantation of a pacemaker, preferably a Micra device Discharge home thereafter Continue Synthroid, hyoscyamine, atorvastatin and aspirin No beta-blockers, verapamil or Cardizem or digoxin
[2023-10-03 14:44] VITALS: TEMP 98.2
[2023-10-03] MEDS ORDERED: LIDOCAINE 1% INJ 10MG/ML (20 ML MDV) ONE (15:54)
[2023-10-03] MEDS ORDERED: MIDAZOLAM 2 MG/2 ML VIAL IVP ONE (16:30)
[2023-10-03] MEDS ORDERED: LIDOCAINE 1% INJ 10MG/ML (20 ML MDV) SQ ONE (16:33)
--- NOTE | 2023-10-03 16:46 | P.EPPROC ---
- EP Procedure Note Electrophysiology Procedure Note: Loop monitor implant Primary physicians: Dr. Mcdermott Manager Furniture: Dr. Ac Indication: Intermittent paroxysmal AV block Patient was brought to the EP lab in a fasting state. Written informed consent was obtained prior to the procedure. The left pectoral area was prepped and draped per protocol. Intravenous antibiotic was administered preoperatively. A subcutaneous Loop monitor was implanted successfully and the wound was closed per protocol. The device was programmed to detect significant sumit- arrhythmic and tachy-arrhythmic events, per protocol. Device and programming details: Syncope protocol, bradycardia protocol, 3-second pause, 8 beats less than 40 bpm heart rate Patient underwent EP procedure under conscious sedation/moderate sedation, monitoring of the level of consciousness and physiologic parameters including but not limited to vital signs and oxygenation. Patient tolerated the procedure well without any acute complications. Start time: 1633 Stop time: 1642
--- NOTE | 2023-10-03 16:52 | P.DS ---
Providers Date of admission: 10/01/23 16:59 Attending physician: Johnny Ac [facility] Course: Discharge summary 78-year-old female who was admitted with recurrent palpitations and near syncope She underwent a diagnostic EP study and successful ablation for AV pratibha reentrant tachycardia She also had paroxysmal intermittent AV block during the procedure that was unrelated to the ablation She has had gastroesophageal surgery/hiatus hernia surgery about a year back and she has had intermittent symptoms of tiredness and fatigue and sudden weakness but without loss of consciousness related to that We monitored her for 72 hours She had no further episodes of paroxysmal AV block On the exercise stress test she did not have any exercise-induced AV block either Therefore decision made to hold off on permanent pacing with a Micra device Instead of loop monitor was implanted A loop monitor was implanted successfully Detailed education was provided to her and her daughter Plan discharge home today and follow-up in the device clinic in a week's time Follow Dr. Ac 4 weeks Long-term plan is to watch for paroxysmal AV block that will determine the need for permanent pacing If so a Micra device may be implanted if it is infrequent Plan - Discharge Summary Discharge Rx Participant: No New Discharge Prescriptions: No Action Levothyroxine Sodium [Synthroid] 25 mcg PO DAILY Oxybutynin Chloride 5 mg PO BID Ergocalciferol (Vitamin D2) [Drisdol (50,000 Iu)] 1,250 mcg PO Q14D ALPRAZolam [Xanax] 0.5 mg PO BID PRN PRN Reason: Anxiety Aspirin 81 mg PO DAILY #90 tab Acetaminophen [Tylenol Arthritis] 650 mg PO DIRECTED PRN PRN Reason: Pain Hyoscyamine Sulfate [Hyoscyamine Sulfate ER] 0.375 mg PO BID Atorvastatin [Lipitor] 20 mg PO HS Ibuprofen [Motrin] 600 mg PO DIRECTED PRN PRN Reason: Pain Discharge Medication List Levothyroxine Sodium [Synthroid] 25 mcg PO DAILY 04/15/19 [History] ALPRAZolam [Xanax] 0.5 mg PO BID PRN 02/01/22 [History] Ergocalciferol (Vitamin D2) [Drisdol (50,000 Iu)] 1,250 mcg PO Q14D 02/01/22 [History] Oxybutynin Chloride 5 mg PO BID 05/26/22 [History] Hyoscyamine Sulfate [Hyoscyamine Sulfate ER] 0.375 mg PO BID 07/24/23 [History] Aspirin 81 mg PO DAILY #90 tab 07/25/23 [Rx] Acetaminophen [Tylenol Arthritis] 650 mg PO DIRECTED PRN 09/27/23 [History] Atorvastatin [Lipitor] 20 mg PO HS 09/27/23 [History] Ibuprofen [Motrin] 600 mg PO DIRECTED PRN 09/27/23 [History] Follow up Appointment(s)/Referral(s): Johnny Ac MD [STAFF PHYSICIAN] - 1 Week (Device clinic follow-up in 1 week Follow-up with Dr. Ac in 4 weeks) Activity/Diet/Wound Care/Special Instructions: Keep wound dry for 7 days Avoid beta-blockers, Cardizem, verapamil and digoxin completely Continue current medications Discharge Disposition: HOME SELF-CARE
[2023-10-03 18:21] VITALS: BP 125/83; PULSE 79
--- NOTE | 2023-10-03 19:07 | P.PN ---
Subjective Progress Note Date: 10/03/23 Progress note Date of service 10/03/[address] Mcdermott Patient seen and evaluated today [id number]. Patient was prepared to have loop recording insertion by EP haunted history tour guide today and subsequently may be discharged today or tomorrow. Patient today feeling good no episodes of near syncope, dizziness, blurred vision She able to communicate and 8 and swallow is no difficulties Her daughter at bedside Her vital signs stable heart rate 79 bpm regular sinus and blood pressure 125/83 mean 97, respiratory rate 16 oxygen saturation 93 on room air Head was normocephalic and atraumatic pupil was equal reactive conjunctiva was pink sclera was nonicteric extraocular muscle movement is intact She had upper plate and no lower normal natural teeth. Normal hearing Neck was supple no JVD no thyromegaly no lymphadenopathy trachea midline. Chest she had underlying scoliosis of mild kyphosis, normal breath sound no wheezes no rhonchi's Heart regular sinus rhythm and no dysrhythmia and is status post ablation. 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 Extremities no edema and positive pulses Assessment: And plan Patient admitted for EP cardiac procedure with the ablation, Patient will have today loop recording insertion Patient currently stable medically and probably will be discharge post insertion of the loop Patient will continue her on home medication and will see her as outpatient in 1 week. Thank you for letting me participate in the care of Mrs. Nila grossman. Objective - Vital Signs Vital signs: Vital Signs Temp 98.2 F 10/03/23 14:26 Pulse 79 10/03/23 18:15 Resp 16 10/03/23 18:15 BP 125/83 10/03/23 18:15 Pulse Ox 93 L 10/03/23 18:15 FiO2 Intake & Output 10/03/23 10/03/23 10/04/23 06:59 18:59 06:59 Intake Total 50 Balance 50 Intake: IV 50 Oral 0 Other: Voiding Method Toilet # Voids 2 2 - Labs CBC & Chem 7: 09/30/23 09:30 09/30/23 09:07
[2023-10-13] MEDS ORDERED: ERGOCALCIFEROL 1,250 MCG (50,000 IU) CAPSULE PO SCH (09:00)
== END 2023-10-03 18:37 | disposition home or self-care (01) ==
LOC: CATHEP 08:34 → 6NMEDSUR 14:39 → CATHEP 10-01 16:59
PROVIDERS: ADMIT Internal Medicine Clinical Cardiac Electrophysiology; ATTEND Internal Medicine Clinical Cardiac Electrophysiology
DX: I47.19 Other supraventricular tachycardia (principal); R55 Syncope and collapse; K21.9 Gastro-esophageal reflux disease without esophagitis; E03.9 Hypothyroidism, unspecified; E78.5 Hyperlipidemia, unspecified; F41.1 Generalized anxiety disorder; Z87.891 Personal history of nicotine dependence; Z79.82 Long term (current) use of aspirin; Z79.890 Hormone replacement therapy; Z79.899 Other long term (current) drug therapy
CPT/HCPCS: 96360; 96361 ×2; 93017; 93623; 93653; 80048; 83735; 84443; 85025; G0378 ×3; C1894; C1769; C1760; C1764; C1730 ×3; C1893; C1732; J2250; J0690; J2001 ×2; J1644; J0131

== ENCOUNTER → 2024-03-20 | Outpatient (CLI) | payer MEDICARE ==
--- NOTE | 2024-03-20 17:53 | CTL ---
EXAMINATION TYPE: CT Low Dose Lung DATE OF EXAM ORDERED: 03/20/2024 HISTORY: 78-year-old female with cough, current smoker with 25 pack-year history. Lung cancer screeni ng. CT DLP: 78.[address] CTDI: 2.4 mGy Automated exposure control for dose reduction was used. SCREENING VISIT: Baseline COMPARISON: Radiograph 07/24/2023 TECHNIQUE: Low dose computed tomography scan was performed through the chest at 1 mm thick sections a nd reconstructed images in multiple planes at 1 mm and [address] DIAGNOSTIC QUALITY: Satisfactory FINDINGS: Heart normal size without pericardial effusion. Proximal coronary artery calcifications are present. Aorta normal caliber with minimal episodic calcifications in conventional branching anatomy. Mildly enlarged AP window lymph node measuring 1.1 cm. This is nonspecific. Otherwise, no thoracic ly mph adenopathy identified. Loop recorder device along the left paramedian anterior chest wall. Moderate diffuse emphysematous change. Minimal biapical pleural-parenchymal scarring. Hazy density at the basilar left lower lobe probably degenerative atelectasis. * There is a suspicious irregular nodule within the lateral left upper lobe measuring 1.4 x 1.4 cm. Axial image 87. * An adjacent endobronchial satellite nodule measuring 8 mm, axial image 95. No consolidation or pleural effusion. In the visualized upper abdomen, suspect previous Nicky fundoplication. There is some fluid within t he distal third esophagus which may reflect some underlying esophageal dysmotility. Small inferior sp lenule. Bones: No osseous destructive process. IMPRESSION: 1. LungRADS Category 4X (very suspicious, >15% chance of malignancy); irregular 1.4 cm pulmonary nodu le lateral left upper lobe. An adjacent endobronchial satellite nodule measuring 8 mm. 2. A borderline to mildly enlarged 1.1 cm AP window lymph node is nonspecific. 3. COPD with moderate emphysema. Advise smoking cessation. CT LUNG RAD AND CT CHEST RECOMMENDATION: Lung-Rad 4B or 4X Very Suspicious: Follow-up Chest CT with o r without contrast or PET/CT and/or tissue sampling. PET/CT may be used when there is a > 8 mm solid component. ADDITIONAL PULMONARY MEDICINE EVALUATION RECOMMENDED. S Modifier (other clinically significant findings): None
[2024-03-20 18:25] LABS: Basophils # (A) 0.04 X 10*3/uL (0.00-0.10); Basophils % (A) 0.5 %; Eosinophils # (A) 0.13 X 10*3/uL (0.04-0.35); Eosinophils % (A) 1.6 %; HCT 38.9 % (37.2-46.3); HGB 12.3 g/dL (12.0-15.0); Lymphocytes # (A) 2.81 X 10*3/uL (0.90-5.00); Lymphocytes % (A) 35.3 %; MCH 29.4 pg (27.0-32.0); MCHC 31.6 g/dL (32.0-37.0); MCV 92.8 FL (80.0-97.0); Mean Platelet Volume 9.6 FL (9.5-12.2); Monocytes # (A) 0.41 X 10*3/uL (0.20-1.00); Monocytes % (A) 5.2 %; NRBC Per 100 WBC 0 X 10*3/uL (0.00-0.01); Neutrophils # (A) 4.55 X 10*3/uL (1.80-7.70); Neutrophils % (A) 57.1 %; Platelet Count 346 X 10*3/uL (140-440); RBC 4.19 X 10*6/uL (4.10-5.20); RDW 13.5 % (11.5-14.5); WBC 7.96 X 10*3/uL (4.50-10.00)
== END | disposition home or self-care (01) ==
LOC: RADCTMAIN 12:11
PROVIDERS: ATTEND Internal Medicine
DX: Z12.2 Encounter for screening for malignant neoplasm of respiratory organs (principal); R91.1 Solitary pulmonary nodule; R59.9 Enlarged lymph nodes, unspecified; J44.9 Chronic obstructive pulmonary disease, unspecified; J43.9 Emphysema, unspecified; F17.210 Nicotine dependence, cigarettes, uncomplicated
CPT/HCPCS: 71271; 85025

== ENCOUNTER → 2024-04-09 | Outpatient (CLI) | payer MEDICARE ==
--- NOTE | 2024-04-10 15:48 | PE ---
EXAMINATION TYPE: PET CT fusion skull to thigh DATE OF EXAM: 04/09/2024 COMPARISON: Low-dose CT chest 03/20/2024 Prior PET/CT: None HISTORY: Left upper lobe lung nodule TECHNIQUE: Following the intravenous administration of 12.56 mCi of F-18 FDG, whole body images are performed from the skull base to the midthigh. Images are reviewed on the computer in the coronal, a xial, and sagittal planes. Reconstructed rotating images are created on independent workstation and reviewed on the computer. A localization and attenuation correction CT is performed in conjunction with the PET scan. DLP: 229.28 mGycm SCAN: Initial Blood glucose: 116 mg/dL Average Mediastinum SUV: 1.89 Average Liver SUV: 2.91 FINDINGS: NECK: No abnormal uptake THORAX: There is a focus of radiotracer within the left upper lobe lung nodule, image 66, SUV 12.82. There is some milder uptake within perihilar lung nodule, image 69, SUV 4.05. There appears to be some punctate mild uptake within the left hilar soft tissue, image 71, posterior uptake 4.98, anterior uptake 5.38 suspicious for metastatic disease. ABDOMEN: No intraperitoneal abnormal uptake identified. Note is made of some uptake within the posterior spinal canal upper lumbar spine, example image 126, SUV 2.32. Consider contrast MRI of the lumbar spine for additional workup. PELVIS: No abnormal uptake OSSEOUS STRUCTURES: No intraosseous uptake identified LOCALIZATION CT: Left upper lobe lung nodules again evident. No additional suspicious findings COMPARISON: Uptake within the lung correlates with the lung nodules. IMPRESSION: 1. Suspicious uptake within the left upper lobe lung nodules. There is uptake within the left hilar r egion. Findings are suspicious for primary and/or metastatic disease. 2. Some intermediate uptake is within the posterior lumbar spinal canal. Consider MRI with contrast f or additional workup.
== END | disposition home or self-care (01) ==
LOC: RADPETMAIN 14:00
PROVIDERS: ATTEND Internal Medicine Critical Care Medicine
DX: R91.1 Solitary pulmonary nodule (principal); R93.7 Abnormal findings on diagnostic imaging of other parts of musculoskeletal system
CPT/HCPCS: 78815; A9552

== ENCOUNTER 2024-04-16 10:48 | Day surgery (SDC) | payer MEDICARE ==
[2024-04-16] MEDS ORDERED: LACTATED RINGERS 1,000 ML BAG ONE (11:53)
[2024-04-16] MEDS ORDERED: NEOSTIGMINE 1 MG/ML 10 ML VIAL ONE (13:31)
[2024-04-16] MEDS ORDERED: PROPOFOL 10 MG/ML 20 ML VIAL IV ONE (13:31)
[2024-04-16] MEDS ORDERED: PHENYLEPHRINE 10 MG/ML VIAL ONE (13:31)
[2024-04-16] MEDS ORDERED: DEXAMETHASONE SOD PHOSPHATE 4 MG/ML 1 ML VIAL ONE (13:31)
[2024-04-16] MEDS ORDERED: ROCURONIUM 10 MG/ML (5 ML VIAL) IV ONE (13:31)
[2024-04-16] MEDS ORDERED: ONDANSETRON 4 MG/2 ML VIAL ONE (13:31)
[2024-04-16] MEDS ORDERED: LIDOCAINE 1% INJ 10MG/ML (20 ML MDV) ONE (13:31)
[2024-04-16] MEDS ORDERED: SUCCINYLCHOLINE CHLORIDE 200 MG/10 ML VIAL IV ONE (13:31)
[2024-04-16] MEDS ORDERED: GLYCOPYRROLATE 0.2 MG/ML 2 ML VIAL ONE (13:31)
[2024-04-16] MEDS ORDERED: fentaNYL (PF) 50 MCG/ML 2 ML AMP ONE (13:31)
--- NOTE | 2024-05-06 13:02 | XR ---
Nila Mann : 1945 EXAMINATION TYPE: XR chest 1V DATE OF EXAM: 04/16/2024 COMPARISON: None available during downtime HISTORY: 78-year-old female status post left upper lobe bronchoscopy is an endobronchial brushings. A ssess for pneumothorax. TECHNIQUE: Single frontal view of the chest is obtained. FINDINGS: Heart is normal size. Aorta and pulmonary vasculature within normal limits. No obvious pneumothorax i s seen though exam limited due to use of nondiagnostic monitor. Opacities in the left mid and lower l stevo are present. Loop recorder device along the left chest. IMPRESSION: 1. No obvious pneumothorax. Note exam limitation as the image was viewed on the portable machine ryan tor during downtime. 2. Left mid and lower lung opacities could represent underlying lesions and/or postbiopsy hemorrhage.
--- NOTE | 2024-05-14 19:39 | CT ---
Patient: Nila Mann D Ordering Physician: Unknown, Unknown ID: [id number] Phone, Pager: Phone: N/ A Pager: N/A : 1945 Age/Gender: 78Y, F Primary Location: N/A Procedure: CT Chest wo ION kristi col Study Date: 04/16/2024 10:58:00 AM Order #: N/[id number] Report Status: Unknown Covert son: N/A EXAMINATION TYPE: CT Chest wo ION protocol DATE OF EXAM: 05/08/2024 COMPARISON: 03/20/2024 HISTORY: Left upper lobe lung mass TECHNIQUE: CT scan of the thorax is performed without IV contrast. According to the ION protocol FINDINGS: There are marked emphysematous changes. There are 2 adjacent spiculated approximate 16 mm masses in the left upper lobe highly suspicious for neoplasm. There is mild pleural-parenchymal scarring in the lung apices. There is no pleural effusion or pneumothorax. There are 2 enlarged lymph nodes in the AP window the largest of which is approximately 2.2 cm. There is ill-defined soft tissue mass in the left hilar region likely indicating hilar adenopathy. Great vessels chest are normal. No focal osseous lesions are seen. There is scanning through the abdomen reveals small to moderate hiatal hernia. IMPRESSION: 1. 2 adjacent spiculated 6 mm mass in the left upper lobe highly suspicious for neoplasm. 2. Marked emphysematous changes. 3. mediastinal and left hilar lymphadenopathy. 4. No focal osseous lesions.
--- NOTE | 2024-05-28 15:27 | P.PCN ---
Date of Procedure: 05/28/24 Operative Findings: Preoperative Diagnosis: Left upper pulmonary nodules Postoperative Diagnosis: Left upper pulmonary nodule #1 (1.1cm) Left upper pulmonary nodule #2 (1.4cm) Procedure(s) Performed: Flexible bronchoscopy Robotic-assisted bronchoscopy and addition to radial ultrasound evaluation of the left upper lobe pulmonary nodule #1 and #2 Robotic-assisted transbronchial transbronchial biopsy, transbronchial brushing and a bronchioloalveolar lavage of nodule #1 Robotic-assisted transbronchial transbronchial needle biopsy, transbronchial biopsy, transbronchial brushing and a bronchioloalveolar lavage of nodule #2 Anesthesia: GETA Surgeon: Elton John Estimated Blood Loss (ml): 0 Pathology: other Condition: stable Disposition: same day Operative Findings: A physical exam was performed. Informed consent was obtained from the patient after explaining all the risks (pneumothorax, life threatening bleeding, infection and adverse effects due to medications), benefits and alternatives to the procedure which the patient appeared to understand and so stated. The patient was connected to the monitoring devices. General anesthesia was induced and the patient was intubated by anesthesia. A final timeout was performed and the procedure confirmed by the attending staff bronchoscopist. The bronchoscope was inserted and the airway examined. Airway examination shows that the distal trachea, Right upper lobe and middle lobe and lower lobe bronchi was all within normal limits. Patient left mainstem bronchus is within normal limits. Examination of left lower lobe was within normal limits. The left upper lobe bronchus and the lingular segment was also patent within normal limits. The flexible bronchoscope was removed and the robotic bronchoscope was inserted. Registration was completed. I next guided the robotic bronchoscope using the navigation system into the left upper lobe targeting nodule #2. Once in proper position, the bronchoscope was frozen. The radial EBUS probe was placed through the bronchoscope and confirmed abnormal u/s images vs normal lung. Forceps were next introduced through working channel and extended the appropriate distance and 3 transbronchial biopsies were performed using fluoroscopic guidance. The u/s probe was then reinserted to confirm location. When confirmed this process was repeated for a total of 8-10 transbronchial biopsies. After reassessment with EBUS, a brush was placed through the extendable working channel for 1 pass with fluoroscopic guidance. U/S evaluation was then used to confirm location. 40ml of saline was then instilled into the area of the lesion. 10 ml of effluent from the BAL was collected. The aspirate was bloody and ultimately declotted and based on that, the sample was discarded. I next guided the robotic bronchoscope using the navigation system into the left upper lobe targeting nodule #1. Once in proper position, the bronchoscope was frozen. The radial EBUS probe was placed through the bronchoscope and confirmed abnormal u/s images vs normal lung. A needle was placed through the working channel and under fluoroscopic guidance, we sampled the area thought to have the mass twice. We then used a cloud biopsy pattern with ultrasound confirmation for 2 additional passes with the needle. U/S evaluation was then used to reconfirm location. Forceps were next introduced through working channel and extended the appropriate distance and 3 transbronchial biopsies were performed using fluoroscopic guidance. The u/s probe was then reinserted to confirm location. When confirmed this process was repeated for a total of 8-10 transbronchial biopsies. After reassessment with EBUS, a brush was placed through the extendable working channel for 1 pass with fluoroscopic guidance. U/S evaluation was then used to confirm location. 40ml of saline was then instilled into the area of the lesion. 10 ml of effluent from the BAL was collected. The aspirate was bloody and ultimately declotted a nd based on that, the sample was discarded. Flex. bronchoscope was inserted and regular suctioning was done. At the completion of the procedure, no residual secretions or bloody material within the airway. The bronchoscope was removed. The patient was extubated. FINDINGS: 1.The airways appeared normal 2 Successful navigation, ultrasonographic identification, and biopsies of left upper lobe nodule #1 and nodule #2 3.The the radial ultrasound view was concentric RECOMMENDATIONS: Await pathology and cytology results The referring physician will be alerted to the results when available. The patient was advised to follow up with the referring physician with the biopsy results Patient will be called with results.
--- NOTE | 2024-06-09 18:21 | FL ---
EXAMINATION TYPE: FL bronchoscopy COMPARISON: Pre Operative Images if available both CT/MRI or plain film CLINICAL INDICATION: Female, 79 years old with history of BRONCH; TECHNIQUE: FL bronchoscopy, multiple fluoroscopic images provided for procedure. Total fluoroscopy time: 2.26 minutes Total submitted images to PACS: 1 DAP: mGym2 Gycm2 uGym2 cGycm2 FINDINGS: ION bronchoscopy images demonstrate bronchoscope terminating in the left upper lung. No immediate com petitions identified no pneumothorax identified. IMPRESSION: 1. No evidence for intraoperative complication. 2. Please see the operative/procedural note for further details. [facility], , 06/09/2024 6:18 PM
== END 2024-04-16 16:30 ==
LOC: ORWHC2ENDO 10:48
PROVIDERS: ATTEND Internal Medicine Critical Care Medicine
DX: C34.12 Malignant neoplasm of upper lobe, left bronchus or lung (principal); J44.9 Chronic obstructive pulmonary disease, unspecified; J98.4 Other disorders of lung; J43.9 Emphysema, unspecified; I47.19 Other supraventricular tachycardia; E78.5 Hyperlipidemia, unspecified; K21.9 Gastro-esophageal reflux disease without esophagitis; K58.8 Other irritable bowel syndrome; Z87.891 Personal history of nicotine dependence; Z79.51 Long term (current) use of inhaled steroids; Z79.890 Hormone replacement therapy; Z79.1 Long term (current) use of non-steroidal anti-inflammatories (NSAID); Z79.899 Other long term (current) drug therapy; Z98.890 Other specified postprocedural states
CPT/HCPCS: 31624; 31625; 31629; 71045; 71250; 88108; 88305; 88341; 88342

== ENCOUNTER → 2024-05-06 | Outpatient (CLI) | payer MEDICARE ==
--- NOTE | 2024-05-12 12:31 | XR ---
EXAMINATION TYPE: XR shoulder complete 3 views LT DATE OF EXAM: 05/06/2024 Comparison: Correlation PET/CT 04/09/2024 Clinical History: 79-year-old female M25.512 M25.519 Pain advanced arthritis Findings: Mild marginal spurring at both before meals and glenoid humeral joints but with relative preservation of joint space at this time. Subacromial space is preserved. There is focal opacity and abnormal AP window opacity in the left midlung. Impression: 1. Mild degenerative spurring at both before meals and glenohumeral joints. No acute osseous arthropa thy seen. 2. 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
== END | disposition home or self-care (01) ==
LOC: RADXRMAIN 11:44
PROVIDERS: ATTEND Internal Medicine Critical Care Medicine
DX: M19.012 Primary osteoarthritis, left shoulder (principal)

== ENCOUNTER 2024-06-29 14:57 | Emergency (ER) | payer MEDICARE ==
--- NOTE | 2024-06-29 15:31 | ED ---
Abdominal Pain HPI - General Source: patient, RN notes reviewed Mode of arrival: ambulatory Limitations: no limitations <Jossy Ramirez - Last Filed: 06/29/24 15:30> <Ana Luisa Gooden - Last Filed: 07/02/24 11:51> - General Chief Complaint: Abdominal Pain Stated Complaint: Abdominal Pain Time Seen by Provider: 06/29/24 15:30 - History of Present Illness Initial Comments: Quick note: 79-year-old female presented to the ER with a chief complaint of abdominal pain. Patient is currently undergoing chemotherapy for lung cancer. Her second chemotherapy treatment was on . She is following up with Dr. Faust. Patient states she has not had a bowel movement since . She has tried milk of magnesia and prune juice multiple times without relief. She states last night she had multiple bouts of watery diarrhea. She does report a history of diverticulitis. She states her pain is a 8-9 out of 10. No fevers. (Jossy Ramirez) 79-year-old female with history of lung cancer currently on chemotherapy presenting to the emergency department chief complaint of abdominal pain and constipation. States that she has had a decrease in bowel movements with her most recent being on . States that she is still passing gas. She has had multiple bouts of watery diarrhea yesterday evening. Patient states that she has a history of diverticulitis. She denies fevers. endorses nausea with no episodes of emesis. (Ana Luisa Gooden) - Related Data Home Medications Medication Instructions Recorded Confirmed Levothyroxine Sodium [Synthroid] 25 mcg PO DAILY 04/15/19 06/29/24 ALPRAZolam [Xanax] 0.5 mg PO BID PRN 02/01/22 06/29/24 Oxybutynin Chloride 5 mg PO DAILY 02/01/22 06/29/24 Atorvastatin [Lipitor] 40 mg PO HS 09/27/23 06/29/24 Folic Acid 1 mg PO DAILY 06/29/24 06/29/24 Losartan [Cozaar] 25 mg PO DAILY 06/29/24 06/29/24 Ondansetron Odt [Zofran Odt] 8 mg PO Q8HR PRN 06/29/24 06/29/24 Pembrolizumab [Keytruda] 200 mg IV Q21D 06/29/24 06/29/24 Previous Rx's Medication Instructions Recorded Ciprofloxacin HCl [Cipro] 500 mg PO Q12HR #19 tablet 06/29/24 metroNIDAZOLE [Flagyl] 500 mg PO TID #29 tab 06/29/24 Allergies Allergy/AdvReac Type Severity Reaction Status Date / Time No Known Allergies Allergy Verified 06/29/24 16:10 Review of Systems ROS Other: All systems not noted in ROS Statement are negative. <Jossy Ramirez - Last Filed: 06/29/24 15:30> ROS Other: All systems not noted in ROS Statement are negative. <Ana Luisa Gooden - Last Filed: 07/02/24 11:51> ROS Statement: Those systems with pertinent positive or pertinent negative responses have been documented in the HPI. Past Medical History Past Medical History: Cancer, GERD/Reflux, Hyperlipidemia, Musculoskeletal Disorder, Osteoarthritis (OA), Skin Disorder, Thyroid Disorder Additional Past Medical History / Comment(s): "Nausea whenever I try to eat something." HX KIDNEY STONES, HIATAL HERNIA, OSTEOPOROSIS. "Gets rash when stressed out." History of Any Multi-Drug Resistant Organisms: None Reported Past Surgical History: Hernia Repair, Hysterectomy Additional Past Surgical History / Comment(s): CYST ON TAILBONE REMOVED, BILATERAL CATARACT SURGERY, RIGHT EYE SURGERY, hiatal hernia repair 05/18/22, right eye surgery May 2021-had an emacular hole, barium swallow. Past Anesthesia/Blood Transfusion Reactions: No Reported Reaction Additional Past Anesthesia/Blood Transfusion Reaction / Comment(s): macular hole surgery = ponv Past Psychological History: Anxiety Smoking Status: Former smoker Past Alcohol Use History: None Reported Past Drug Use History: None Reported - Past Family History Daughter(s) Family Medical History: Cancer Additional Family Medical History / Comment(s): CERVICAL CANCER. Mother Family Medical History: Cancer Additional Family Medical History / Comment(s): CERVICAL CANCER. <Jossy Ramirez - Last Filed: 06/29/24 15:30> General Exam Limitations: no limitations <Jossy Ramirez - Last Filed: 06/29/24 15:30> General appearance: alert, in no apparent distress Eye exam: Present: normal appearance, PERRL, EOMI. Absent: scleral icterus, conjunctival injection, periorbital swelling ENT exam: Present: normal exam, mucous membranes moist Neck exam: Present: normal inspection. Absent: tenderness, meningismus, lymphadenopathy Respiratory exam: Present: normal lung sounds bilaterally. Absent: respiratory distress, wheezes, rales, rhonchi, stridor Cardiovascular Exam: Present: regular rate, normal rhythm, normal heart sounds. Absent: systolic murmur, diastolic murmur, rubs, gallop, clicks GI/Abdominal exam: Present: soft, tenderness (diffuse), rebound (LLQ/ left mid abdomen), normal bowel sounds. Absent: distended, guarding, rigid Extremities exam: Present: normal inspection, full ROM, normal capillary refill. Absent: tenderness, pedal edema, joint swelling, calf tenderness Back exam: Present: normal inspection Neurological exam: Present: alert, oriented X3, CN II-XII intact <Ana Luisa Gooden - Last Filed: 07/02/24 11:51> - General Exam Comments Initial Comments: Visual Physical Exam Vital signs reviewed General: Well-appearing, nontoxic, no acute distress. Head: Normocephalic, atraumatic Eyes: PERRLA, EOMI ENT: Airway patent Chest: Nonlabored breathing Skin: No visual rash, normal skin tone Neuro: Alert and oriented 3 Musculoskeletal: No gross abnormalities (Jossy Ramirez) Course Vital Signs 06/29/24 06/29/24 06/29/24 14:59 17:13 18:11 Temperature 98.6 F Pulse Rate 102 H 81 64 Respiratory 16 16 18 Rate Blood Pressure 116/67 99/64 116/67 O2 Sat by Pulse 98 95 95 Oximetry 06/29/24 20:01 Temperature 98.5 F Pulse Rate 86 Respiratory 17 Rate Blood Pressure 118/68 O2 Sat by Pulse 97 Oximetry Medical Decision Making <Jossy Ramirez - Last Filed: 06/29/24 15:30> - Lab Data Result diagrams: 06/29/24 15:54 06/29/24 15:54 <Ana Luisa Gooden - Last Filed: 07/02/24 11:51> - Medical Decision Making I performed the quick note portion of this chart. Electronically signed by Jossy Ramirez PA-C (Jossy Ramirez) Was pt. sent in by a medical professional or institution ([facility], ADVERTISING COPY WRITER, urgent care, hospital, or fpc...) When possible be specific @ -No Did you speak to anyone other than the patient for history (EMS, parent, family, police, friend...)? What history was obtained from this source @ -No Did you review nursing and triage notes (agree or disagree)? Why? @ -I reviewed and agree with nursing and triage notes Were old charts reviewed (outside hosp., previous admission, EMS record, old EKG, old radiological studies, urgent care reports/EKG's, fpc records)? Report findings @ -No old charts were reviewed Differential Diagnosis (chest pain, altered mental status, abdominal pain women, abdominal pain men, vaginal bleeding, weakness, fever, dyspnea, syncope, headache, dizziness, GI bleed, back pain, seizure, CVA, palpatations, mental health, musculoskeletal)? @ -Differential Abdominal Pain Women: Appendicitis, Cholecystitis, diverticulosis, ischemic bowel, pancreatitis, hepatitis, UTI, gastroenteritis, AAA, incarcerated hernia, bowel obstruction, constipation, inflammatory bowel, hepatitis, peptic ulcer disease, splenic infarction, perforated viscus, vulvitis, ovarian torsion, PID, kidney stone, placenta abruption, this is not meant to be an all-inclusive list EKG interpreted by me (3pts min.). @ -None X-rays interpreted by me (1pt min.). @ -None done CT interpreted by me (1pt min.). @ -CT of the abdomen and pelvis with IV contrast remarkable for sigmoid diverticulosis with moderate inflammatory wall thickening of the sigmoid colon with no abscess or free air, correlate for acute diverticulitis. Gallbladder 4.8 cm wide with no surrounding inflammation likely due to fasting state U/S interpreted by me (1pt. min.). @ -US gallbladder revealed hydropic gallbladder with no gallstones or ancillary findings of acute cholecystitis and overall image is limited due to bowel gas What testing was considered but not performed or refused? (CT, X-rays, U/S, labs)? Why? @ -None What meds were considered but not given or refused? Why? @ -None Did you discuss the management of the patient with other professionals (professionals i.e. , PA, ADVERTISING COPY WRITER, lab, RT, psych nurse, social services designee, reo asset manager, teacher, chief investment officer, case maker)? Give summary @ -Spoke with the patient's primary care provider, Dr. Mcdermott, in regard to the patient's laboratory workup and CT imaging concerning for diverticulitis. It is advised that patient be given antibiotics with initial dose of Emergency Department and we discharged home with oral antibiotics and instructed to call office to schedule a follow-up appointment within the next 1 to 2 days. Was smoking cessation discussed for >3mins.? @ -No Was critical care preformed (if so, how long)? @ -No Were there social determinants of health that impacted care today? How? (Homelessness, low income, unemployed, alcoholism, drug addiction, transportation, low edu. Level, literacy, decrease access to med. care, assisted, rehab)? @ -No Was there de-escalation of care discussed even if they declined (Discuss DNR or withdrawal of care, Hospice)? DNR status @ -No What co-morbidities impacted this encounter? (DM, HTN, Smoking, COPD, CAD, Cancer, CVA, ARF, Chemo, Hep., AIDS, mental health diagnosis, sleep apnea, morbid obesity)? @ -lung cancer Was patient admitted / discharged? Hospital course, mention meds given and route, prescriptions, significant lab abnormalities, going to OR and other pertinent info. @ -Discharge. 79-year-old female with diarrhea, abdominal pain, nausea. Patient was originally evaluated emergency department waiting room as a quick note. On my evaluation the patient she is noted to have diffuse abdominal pain to palpation with rebound tenderness to the left lower quadrant. Her vitals are stable. Patient is provided with dose of antiemetics and analgesics pending laboratory results and CT imaging. Additionally, with concern for dehydration she is prophylactically treated with a liter fluid bolus as well. She is agree with this plan. CBC unremarkable, CMP reveals hyponatremia of 132, elevated BUN at 23, analysis markable for blood with white blood cells and hyaline casts. Renal evaluation by myself of CT concern for a grossly enlarged gallbladder therefore ultrasound is ordered for further evaluation. Ultrasound unremarkable for acute findings aside from high atrophic gallbladder which is consistent with a fasting state. CT when she concerning for diverticulitis. Spoke with the patient's primary care provider who advises that she receive initial dose of antibiotics emergency department and follow-up outpatient in the next 1 to 2 days for further evaluation. All questions answered at bedside and strict re turn parameters have been discussed with the patient she is verbalized understanding. Case is provided with initial dose of flagyl and Cipro. discussed with Dr. Nunn Undiagnosed new problem with uncertain prognosis? @ -No Drug Therapy requiring intensive monitoring for toxicity (Heparin, Nitro, Insulin, Cardizem)? @ -No Were any procedures done? @ -No Diagnosis/symptom? @ -diverticulitis, abdominal pain, diarrhea Acute, or Chronic, or Acute on Chronic? @ -acute Uncomplicated (without systemic symptoms) or Complicated (systemic symptoms)? @ -Complicated Side effects of treatment? @ -No Exacerbation, Progression, or Severe Exacerbation? @ -No Poses a threat to life or bodily function? How? (Chest pain, [place], [place], pneumonia, PE, COPD, DKA, ARF, appy, cholecystitis, CVA, Diverticulitis, Homicidal, Suicidal, threat to staff... and all critical care pts) @ -No (Ana Luisa Gooden) - Lab Data Lab Results 06/29/24 06/29/24 06/29/24 Range/Units 15:54 15:54 15:54 WBC 10.2 (3.8-10.6) k/uL RBC 3.74 L (3.80-5.40) m/uL Hgb 11.5 (11.4-16.0) gm/dL Hct 34.2 (34.0-46.0) % MCV 91.4 (80.0-100.0) fL MCH 30.6 (25.0-35.0) pg MCHC 33.5 (31.0-37.0) g/dL RDW 13.8 (11.5-15.5) % Plt Count 409 (150-450) k/uL MPV 7.3 Neutrophils % 77 % Lymphocytes % 20 % Monocytes % 1 % Eosinophils % 2 % Basophils % 0 % Neutrophils # 7.9 H (1.3-7.7) k/uL Lymphocytes # 2.0 (1.0-4.8) k/uL Monocytes # 0.1 (0-1.0) k/uL Eosinophils # 0.2 (0-0.7) k/uL Basophils # 0.0 (0-0.2) k/uL Sodium 132 L (137-145) mmol/L Potassium 3.6 (3.5-5.1) mmol/L Chloride 102 (98-107) mmol/L Carbon Dioxide 24 (22-30) mmol/L Anion Gap 6 mmol/L BUN 23 H (7-17) mg/dL Creatinine 0.91 (0.52-1.04) mg/dL Est GFR (CKD-EPI)AfAm 70 (>60 ml/min/1.73 sqM) Est GFR (CKD-EPI)NonAf 61 (>60 ml/min/1.73 sqM) Glucose 105 H (74-99) mg/dL Plasma Lactic Acid Kiet 1.2 (0.7-2.0) mmol/L Calcium 8.4 (8.4-10.2) mg/dL Total Bilirubin 1.3 (0.2-1.3) mg/dL AST 24 (14-36) U/L ALT 17 (4-34) U/L Alkaline Phosphatase 94 (38-126) U/L Total Protein 6.1 L (6.3-8.2) g/dL Albumin 3.7 (3.5-5.0) g/dL Amylase 115 H (30-110) U/L Lipase 26 (23-300) U/L Urine Color Urine Appearance (Clear) Urine pH (5.0-8.0) Ur Specific [place] (1.001-1.035) Urine Protein (Negative) Urine Glucose (UA) (Negative) Urine Ketones (Negative) Urine Blood (Negative) Urine Nitrite (Negative) Urine Bilirubin (Negative) Urine Urobilinogen (<2.0) mg/dL Ur Leukocyte Esterase (Negative) Urine RBC (0-5) /hpf Urine WBC (0-5) /hpf Ur Squamous Epith Cells (0-4) /hpf Hyaline Casts (0-2) /lpf Urine Mucus (None) /hpf 06/29/24 Range/Units 16:00 WBC (3.8-10.6) k/uL RBC (3.80-5.40) m/uL Hgb (11.4-16.0) gm/dL Hct (34.0-46.0) % MCV (80.0-100.0) fL MCH (25.0-35.0) pg MCHC (31.0-37.0) g/dL RDW (11.5-15.5) % Plt Count (150-450) k/uL MPV Neutrophils % % Lymphocytes % % Monocytes % % Eosinophils % % Basophils % % Neutrophils # (1.3-7.7) k/uL Lymphocytes # (1.0-4.8) k/uL Monocytes # (0-1.0) k/uL Eosinophils # (0-0.7) k/uL Basophils # (0-0.2) k/uL Sodium (137-145) mmol/L Potassium (3.5-5.1) mmol/L Chloride (98-107) mmol/L Carbon Dioxide (22-30) mmol/L Anion Gap mmol/L BUN (7-17) mg/dL Creatinine (0.52-1.04) mg/dL Est GFR (CKD-EPI)AfAm (>60 ml/min/1.73 sqM) Est GFR (CKD-EPI)NonAf (>60 ml/min/1.73 sqM) Glucose (74-99) mg/dL Plasma Lactic Acid Kiet (0.7-2.0) mmol/L Calcium (8.4-10.2) mg/dL Total Bilirubin (0.2-1.3) mg/dL AST (14-36) U/L ALT (4-34) U/L Alkaline Phosphatase (38-126) U/L Total Protein (6.3-8.2) g/dL Albumin (3.5-5.0) g/dL Amylase (30-110) U/L Lipase (23-300) U/L Urine Color Yellow Urine Appearance Cloudy H (Clear) Urine pH 5.5 (5.0-8.0) Ur Specific [place] 1.031 (1.001-1.035) Urine Protein 1+ H (Negative) Urine Glucose (UA) Negative (Negative) Urine Ketones Negative (Negative) Urine Blood Moderate H (Negative) Urine Nitrite Negative (Negative) Urine Bilirubin Negative (Negative) Urine Urobilinogen 2.0 (<2.0) mg/dL Ur Leukocyte Esterase Moderate H (Negative) Urine RBC 10 H (0-5) /hpf Urine WBC 20 H (0-5) /hpf Ur Squamous Epith Cells 2 (0-4) /hpf Hyaline Casts 25 H (0-2) /lpf Urine Mucus Few H (None) /hpf Disposition <Jossy Ramirez - Last Filed: 10/21/24 15:30> Is patient prescribed a controlled substance at d/c from ED?: No Time of Disposition: 19:49 <Ana Luisa Gooden - Last Filed: 07/02/24 11:51> Clinical Impression: Diverticulitis Disposition: HOME SELF-CARE Condition: Good Instructions (If sedation given, give patient instructions): Diverticulitis (ED) Additional Instructions: Please return to the Emergency Department if symptoms worsen or any other concerns. Complete full course of both antibiotics as prescribed. Recommend you contact your primary care provider's office in the morning to schedule an appointment for this week for further evaluation as well. Prescriptions: Ciprofloxacin HCl [Cipro] 500 mg PO Q12HR #19 tablet metroNIDAZOLE [Flagyl] 500 mg PO TID #29 tab Referrals: Ihsan Mcdermott MD [Primary Care Provider] - 1-2 days
[2024-06-29] MEDS: ONDANSETRON 4 MG/2 ML VIAL IVP STA (16:11)
[2024-06-29] MEDS: HYDROmorphone 1 MG/ML 1 ML SYRINGE IVP STA (16:12)
[2024-06-29 16:25] LABS: Appearance,Urine Cloudy (Clear); Bilirubin,Urine Negative (Negative); Blood,Urine Moderate (Negative); Color,Urine Yellow; Glucose,Urine (UA) Negative (Negative); Hyaline Casts,Urine 25 /lpf (0-2); Ketones,Urine Negative (Negative); Leukocyte Esterase,Urine Moderate (Negative); Mucus,Urine Few /hpf; Nitrite,Urine Negative (Negative); PH, Urine 5.5 (5.0-8.0); Protein,Urine 1+ (Negative); RBC,Urine 10 /hpf (0-5); Specific Gravity,Urine 1.031 (1.001-1.035); Squamous Epithelial Cell,Urine 2 /hpf (0-4); WBC,Urine 20 /hpf (0-5)
[2024-06-29 16:26] LABS: Basophils % (A) 0 %; Eosinophils # (A) 0.2 k/uL (0-0.7); Eosinophils % (A) 2 %; HCT 34.2 % (34.0-46.0); HGB 11.5 gm/dL (11.4-16.0); Lymphocytes % (A) 20 %; MCH 30.6 pg (25.0-35.0); MCHC 33.5 g/dL (31.0-37.0); MCV 91.4 fL (80.0-100.0); Mean Platelet Volume 7.3; Monocytes # (A) 0.1 k/uL (0-1.0); Monocytes % (A) 1 %; Neutrophils # (A) 7.9 k/uL (1.3-7.7); Neutrophils % (A) 77 %; Platelet Count 409 k/uL (150-450); RBC 3.74 m/uL (3.80-5.40); RDW 13.8 % (11.5-15.5); WBC 10.2 k/uL (3.8-10.6)
[2024-06-29 16:29] LABS: ALT 17 U/L (4-34); AST 24 U/L (14-36); African American GFR (CKD) 70 (>60 ml/min/1.73 sqM); Albumin 3.7 g/dL (3.5-5.0); Alkaline Phosphatase 94 U/L (38-126); Amylase 115 U/L (30-110); Anion Gap 6 mmol/L; Blood Urea Nitrogen 23 mg/dL (7-17); Calcium 8.4 mg/dL (8.4-10.2); Carbon Dioxide 24 mmol/L (22-30); Chloride 102 mmol/L (98-107); Glucose 105 mg/dL (74-99); Lipase 26 U/L (23-300); Non-African American GFR(CKD) 61 (>60 ml/min/1.73 sqM); Potassium 3.6 mmol/L (3.5-5.1); Sodium 132 mmol/L (137-145); Total Bilirubin 1.3 mg/dL (0.2-1.3); Total Protein 6.1 g/dL (6.3-8.2)
[2024-06-29] MEDS: SODIUM CHLORIDE 0.9% 1,000 ML IV STA (16:55)
--- NOTE | 2024-06-29 18:30 | CT ---
EXAMINATION TYPE: CT abdomen pelvis w con DATE OF EXAM: 06/29/2024 COMPARISON: 04/09/2024 HISTORY: 79-year-old female diffuse abdominal pain, constipation TECHNIQUE: Contiguous axial scanning of the abdomen and pelvis following administration of 100 ml Iso socrates 370 IV contrast. Delayed images through the kidneys and coronal/sagittal reconstructions perform ed. CT DLP: 606.3 mGycm Automated exposure control for dose reduction was used. FINDINGS: Heart normal size without pericardial effusion. Lung bases clear without pleural effusion. Patient status post Nicky fundoplication. No focal liver lesion. Bile duct borderline in caliber at 6 mm, acceptable for patient's age. Portal venous system is patent. Gallbladder is hydropic at 4.8 cm wide but without any surrounding inflammation. Adrenal glands, kidneys, spleen, and atrophic pancreas show no gross abnormality. Inferior splenule. No dilated small bowel or free air. Some liquid stool in the right side of the colon. There is sigmoid diverticulosis. Mild to moderate wall thickening with mild pericolonic inflammatory change mid sigmoid colon. Trace free fluid tracking into the pelvis from this region. Bladder is collapsed. Uterus surgically absent. Suspect visualization of small bilateral ovaries. No pelvic lymphadenopathy seen. Bones: Mild degenerative change of the hips. Hypertrophic facet arthropathy lower lumbar spine with degenerative grade 2 anterolisthesis L4-L5 and severe degenerative disc disease. IMPRESSION: 1. SIGMOID DIVERTICULOSIS WITH MODERATE INFLAMMATORY WALL THICKENING MID SIGMOID COLON. REACTIVE MILD PELVIC FREE FLUID. NO ABSCESS OR FREE AIR. CORRELATE FOR ACUTE DIVERTICULITIS. 2. Hydropic gallbladder 4.8 cm wide. No surrounding inflammation. Likely due to fasting state. [facility], , 06/29/2024 6:28 PM
--- NOTE | 2024-06-29 19:10 | US ---
EXAMINATION TYPE: US gallbladder DATE OF EXAM: 06/29/2024 COMPARISON: CT today CLINICAL INDICATION: Female, 79 years old with history of enlarged gallbladder on CT, ab pain; Abd pa in since yesterday morning. Hx hernia surgery. Patient constipated TECHNIQUE: Grayscale and color Doppler imaging of the right upper quadrant was performed. FINDINGS: EXAM MEASUREMENTS: Liver Length: 14.0 cm Gallbladder Wall: 0.3 cm CBD: Unable to visualize Right Kidney: 8.3 x 4.6 x 3.8 cm FORENSIC ARTIST NOTES:very limited visualization due to overlying bowel gas Pancreas: Obscured by bowel gas. Only a small portion of the pancreatic head is seen. Liver: Difficult to fully evaluate due to overlying bowel. Intercostal views used. wnl as best seen Gallbladder: Appears hydropic at 4.3 cm wide. No abnormal wall thickening. No stones seen. No surrou nding fluid. Evidence for sonographic Hunter's sign: no CBD: Obscured by overlying bowel gas Right Kidney: wnl IMPRESSION: 1. Limited ultrasound exam due to bowel gas. 2. Hydropic gallbladder. No gallstones or ancillary findings of acute cholecystitis. Probably relatin g to fasting state. Clinically correlate. 3. The bile duct and pancreas are obscured and could not be assessed. [facility], , 06/29/2024 7:07 PM
[2024-06-29] MEDS: CIPROFLOXACIN HCL 500 MG TAB PO STA (19:59)
[2024-06-29] MEDS: metroNIDAZOLE 500 MG TAB PO STA (19:59)
[2024-06-29 20:05] VITALS: BP 118/68; PULSE 86; RESP 17; TEMP 98.5
== END 2024-06-29 20:16 | disposition home or self-care (01) ==
LOC: EC 14:57
CPT/HCPCS: 36415; 74177; 76705; 80053; 81001; 82150; 83605; 83690; 85025; 87086

== ENCOUNTER → 2024-08-10 | Outpatient (CLI) | payer MEDICARE ==
[2024-08-10 10:57] LABS: African American GFR (CKD) >90 (>60 ml/min/1.73 sqM); Blood Urea Nitrogen 16 mg/dL (7-17); Non-African American GFR(CKD) 83 (>60 ml/min/1.73 sqM)
--- NOTE | 2024-08-10 12:03 | CT ---
EXAMINATION TYPE: CT chest w con CT DLP: 146.70 mGycm, Automated exposure control for dose reduction was used. DATE OF EXAM: 08/10/2024 11:49 AM COMPARISON: CT chest 05/13/2024, PET/CT 04/09/2024, C2 low-dose lung 03/20/2024 CLINICAL INDICATION:Female, 79 years old with history of C34.12 Lung CA; PHH, Lung ca post radiation TECHNIQUE: Multiple axial images were obtained through the chest following the administration of 100 cc of Isovue 300. . Coronal and sagittal reformats reviewed. FINDINGS: LUNGS/ PLEURA: No pleural effusion or pneumothorax. Previously seen left lateral upper lobe pulmonary nodule with additional satellite nodule are no longer visualized with some residual linear scarring identified in this region. Mild centrilobular emphysematous changes. No new suspicious pulmonary nod ules. AIRWAY: Patent and unremarkable.. HEART: Size within normal limits.No pericardial effusion. MEDIASTINUM: No evidence of adenopathy. Decreased size of left hilar lymph nodes measuring less than 1 cm short axis now. VASCULATURE: No aortic aneurysm. Minimal atherosclerotic calcification of the aorta and its branches . MUSCULOSKELETAL: No acute osseous abnormalities. No aggressive osseous lesion. SOFT TISSUES/LYMPH NODES: Left anterior chest wall loop recorder. LOWER NECK: No significant findings. UPPER ABDOMEN: Postsurgical changes at the GE junction from hiatal hernia repair. IMPRESSION: 1. Positive response to therapy with previously seen left lung pulmonary nodules no longer visualize d with some residual linear scarring identified. 2. Decrease in previously seen left hilar adenopathy. 3. Mild COPD changes. [facility], , 08/10/2024 12:01 PM
== END | disposition home or self-care (01) ==
LOC: RADCTMAIN 10:02
PROVIDERS: ATTEND Internal Medicine Hematology & Oncology
DX: C34.12 Malignant neoplasm of upper lobe, left bronchus or lung (principal); J44.9 Chronic obstructive pulmonary disease, unspecified; M12.9 Arthropathy, unspecified; E78.5 Hyperlipidemia, unspecified; K58.9 Irritable bowel syndrome, unspecified; R59.0 Localized enlarged lymph nodes; I70.0 Atherosclerosis of aorta; Z92.3 Personal history of irradiation
CPT/HCPCS: 82565; 84520; 71260; 36415; Q9967

== ENCOUNTER → 2024-08-24 | Outpatient (CLI) | payer MEDICARE ==
[2024-08-24 15:22] LABS: Appearance,Urine Clear (Clear); Bilirubin,Urine Negative (Negative); Blood,Urine Small (Negative); Color,Urine Yellow; Glucose,Urine (UA) Negative (Negative); Ketones,Urine Negative (Negative); Leukocyte Esterase,Urine Trace (Negative); Mucus,Urine Occasional /hpf; Nitrite,Urine Negative (Negative); PH, Urine 6.5 (5.0-8.0); Protein,Urine Trace (Negative); RBC,Urine 11 /hpf (0-5); Specific Gravity,Urine 1.023 (1.001-1.035); Squamous Epithelial Cell,Urine 1 /hpf (0-4); Urobilinogen,Urine <2.0 mg/dL (<2.0); WBC,Urine 2 /hpf (0-5)
[2024-08-24 15:31] LABS: Partial Thromboplastin Time 22.2 sec (22.0-30.0); Prothrombin Time 11.5 sec (10.0-12.5)
[2024-08-24 19:39] LABS: Blood Urea Nitrogen 16.7 mg/dL (9.0-27.0); Chloride 106 mmol/L (96-109); Glucose 96 mg/dL (70-110); Potassium 3.5 mmol/L (3.5-5.5); Sodium 141 mmol/L (135-145)
[2024-08-24 19:42] LABS: Basophils # (A) 0 X 10*3/uL (0.00-0.10); Basophils % (A) 0 %; Eosinophils # (A) 0.01 X 10*3/uL (0.04-0.35); Eosinophils % (A) 0.3 %; HCT 27.1 % (37.2-46.3); HGB 8.8 g/dL (12.0-15.0); Immature Grans, Automated 0 %; Lymphocytes # (A) 2.01 X 10*3/uL (0.90-5.00); Lymphocytes % (A) 70.3 %; MCH 31.7 pg (27.0-32.0); MCHC 32.5 g/dL (32.0-37.0); MCV 97.5 FL (80.0-97.0); Mean Platelet Volume 10.7 FL (9.5-12.2); Monocytes # (A) 0.27 X 10*3/uL (0.20-1.00); Monocytes % (A) 9.4 %; NRBC Per 100 WBC 0.02 X 10*3/uL (0.00-0.01); Neutrophils # (A) 0.57 X 10*3/uL (1.80-7.70); Platelet Count 138 X 10*3/uL (140-440); RBC 2.78 X 10*6/uL (4.10-5.20); WBC 2.86 X 10*3/uL (4.50-10.00)
== END | disposition home or self-care (01) ==
LOC: LABWHC1 14:36
PROVIDERS: ATTEND Thoracic Surgery (Cardiothoracic Vascular Surgery)
DX: Z01.812 Encounter for preprocedural laboratory examination (principal); C34.90 Malignant neoplasm of unspecified part of unspecified bronchus or lung; I48.91 Unspecified atrial fibrillation; E86.0 Dehydration
CPT/HCPCS: 36415; 80051; 81001; 82565; 82947; 84520; 85025; 85610; 85730; 86850; 86900; 86901; 87086

== ENCOUNTER 2024-09-03 06:02 | Inpatient (IN) | payer MEDICARE ==
[2024-08-28 15:13] VITALS: BMI 23.3
[2024-09-03] MEDS ORDERED: LIDOCAINE 1% (10MG/ML) FOR IV START INTRADERMA PRN (06:25)
[2024-09-03] MEDS ORDERED: HYDROmorphone 0.5 MG/0.5 ML SYRINGE IVP PRN (06:25)
[2024-09-03] MEDS: MIDAZOLAM 2 MG/2 ML VIAL IV ONE (06:54)
[2024-09-03] MEDS: ONDANSETRON 4 MG/2 ML VIAL IVP ONE (07:15)
[2024-09-03] MEDS: LACTATED RINGERS 1,000 ML IV SCH ×2 (07:20→20:13)
[2024-09-03] MEDS: DEXAMETHASONE SOD PHOSPHATE 4 MG/ML 1 ML VIAL IV ONE (07:20)
[2024-09-03 07:24] LABS: Anisocytosis Slight; Basophils % (A) 0 %; Eosinophils % (A) 1 %; Hypochromasia Slight; Lymphocytes # (A) 2.1 k/uL (1.0-4.8); Lymphocytes % (A) 51 %; MCHC 33.2 g/dL (31.0-37.0); Macrocytosis Moderate; Mean Platelet Volume 7.8; Monocytes # (A) 0.3 k/uL (0-1.0); Monocytes % (A) 7 %; Neutrophils # (A) 1.5 k/uL (1.3-7.7); Neutrophils % (A) 37 %; Platelet Count 338 k/uL (150-450); RBC 2.92 m/uL (3.80-5.40); RDW 18.7 % (11.5-15.5); WBC 4.1 k/uL (3.8-10.6)
[2024-09-03] MEDS: IV FLUID CONTINUATION 1,000 ML IV ONE ×2 (07:39)
[2024-09-03 07:40] LABS: HGB 9.6 gm/dL (11.4-16.0); MCV 99.3 fL (80.0-100.0)
[2024-09-03] MEDS ORDERED: MIDAZOLAM 2 MG/2 ML VIAL ONE (07:52)
[2024-09-03] MEDS ORDERED: DEXAMETHASONE SOD PHOSPHATE 4 MG/ML 1 ML VIAL ONE (07:52)
[2024-09-03] MEDS ORDERED: NEOSTIGMINE 1 MG/ML 10 ML VIAL ONE (07:52)
[2024-09-03] MEDS ORDERED: KETAMINE HCL IN 0.9 % NACL 50 MG/5 ML SYRINGE ONE (07:52)
[2024-09-03] MEDS ORDERED: ROPIVACAINE 5 MG/ML 30 ML VIAL ONE (07:52)
[2024-09-03] MEDS ORDERED: PROPOFOL 10 MG/ML 20 ML VIAL IV ONE (07:52)
[2024-09-03] MEDS ORDERED: ROCURONIUM 10 MG/ML (5 ML VIAL) IV ONE (07:52)
[2024-09-03] MEDS ORDERED: HYDROmorphone (PF) 1 MG/ML ONE (07:52)
[2024-09-03] MEDS ORDERED: SUCCINYLCHOLINE CHLORIDE 200 MG/10 ML VIAL IV ONE (07:52)
[2024-09-03] MEDS ORDERED: GLYCOPYRROLATE 0.2 MG/ML 2 ML VIAL ONE (07:52)
[2024-09-03] MEDS ORDERED: PHENYLEPHRINE-0.9% NACL SYG 1,000 MCG/10 ML SYRINGE ONE (07:52)
[2024-09-03] MEDS ORDERED: LIDOCAINE 1% INJ 10MG/ML (20 ML MDV) ONE (07:52)
[2024-09-03] MEDS ORDERED: fentaNYL (PF) 50 MCG/ML 2 ML AMP ONE (07:52)
[2024-09-03] MEDS: BUPIVACAINE (PF) 0.5% 30 ML VIAL SQ ONE ×2 (08:31→10:50)
[2024-09-03] MEDS: LACTATED RINGERS 1,000 ML IV ONE (10:15)
[2024-09-03] MEDS ORDERED: ACETAMINOPHEN TAB 325 MG TAB PO PRN (11:28)
[2024-09-03] MEDS ORDERED: HYDROcodone/APAP 5-325MG 1 EACH TAB PO PRN (11:28)
[2024-09-03] MEDS ORDERED: bisacodyL 10 MG SUPP RECTAL PRN (11:28)
[2024-09-03] MEDS ORDERED: IPRATROPIUM-ALBUTEROL 3 ML NEB IH PRN (11:28)
--- NOTE | 2024-09-03 11:38 | P.OP ---
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 Anesthesia: ALLEN Surgeon: Malachi Keith Liquid Sugar Fortifier #1: Zoran Arroyo Estimated Blood Loss (ml): 100 IV fluids (ml): 800 Urine output (ml): 200 Pathology: other (Left upper lobe for frozen section of bronchial margin returned negative, permanent section pending. Lymph node stations L5, L6, level 7, L9, L10, L11.) Indications for Procedure: 79-year-old female presented with advanced lung carcinoma of the left upper lobe. After appropriate workup she was recommended to undergo induction chemotherapy followed by left upper lobectomy. She underwent successful induction chemotherapy. Restaging revealed complete to near complete response. Elective left upper lobectomy was scheduled. Operative Findings: There was no palpable tumor mass. Lymph nodes appeared anthracotic. Hilar dissection was difficult due to vascularized adhesive disease status post chemotherapy. Frozen section of the bronchial margin was negative. Description of Procedure: Patient was brought to the operating room and placed supine on the operating table. General anesthesia was induced and the patient was intubated with a double-lumen endotracheal tube. Tube was positioned with fiberoptic bronchoscopy. No endobronchial lesions were noted. Patient was turned in the right lateral decubitus position and appropriately positioned. The left chest was sterilely prepped and draped. Initial incision was made in the eighth interspace in the midaxillary line. 8 mm robotic port was placed. After assuring placement in the pleural space, CO2 insufflation was begun. 2 15 mm ports were placed anterior and posterior to this in the same interspace. A second 8 mm port was placed posteriorly and a working port was placed anteriorly at the level of the diaphragm. The robot was docked. The fissure was near complete. We began with dissection of the pulmonary artery branches at the base of the fissure. 2 branches were divided here using robotic stapler vascular dana ds. The inferior pulmonary ligament was taken down with electrocautery. L9, level 7, L6 and L10 lymph nodes were resected. Attention was directed anteriorly. The superior pulmonary vein was was dissected out ligated and divided with a robotic vascular stapler. Dissection was carried onto the bronchus. The upper lobe bronchus was dissected out ligated and divided with a robotic green stapler. The main PA and bronchus were carefully dissected apart. The truncus anteriosis was dissected out and ligated and divided with a robotic vascular stapler. Lobectomy specimen was placed in an Endo Catch bag. L5 lymph nodes were dissected out. The robot was undocked. Lobectomy specimen was removed in the Endo Catch bag and the hilum dissected for L11 lymph nodes. It was then sent for frozen section of the bronchial margin which returned negative. Chest was irrigated with warm water. Lung was inflated without evidence of air leak. Pleural space was suctioned free and a 28 chest tube placed through anterior stab incision and positioned posterior apically. The lung was inflated under thoracoscopic visualization. Incisions were closed with layers of Vicryl suture. Rib blocks were performed posteriorly with half percent Marcaine. Dry sterile dressings were applied and the patient was extubated and transferred to recovery in stable condition.
[2024-09-03] MEDS: HYDROmorphone 0.5 MG/0.5 ML SYRINGE IVP ONE ×3 (11:43→11:57)
[2024-09-03] MEDS: hydrALAZINE HCL 20 MG/ML 1 ML VIAL IVP STA (12:09)
[2024-09-03] MEDS: IPRATROPIUM-ALBUTEROL 3 ML NEB IH SCH (12:14)
[2024-09-03] MEDS ORDERED: hydrALAZINE HCL 20 MG/ML 1 ML VIAL IVP PRN (12:15)
--- NOTE | 2024-09-03 12:20 | XR ---
EXAMINATION TYPE: XR chest 1V portable DATE OF EXAM: 09/03/2024 12:07 PM COMPARISON: 04/16/2024 CLINICAL INDICATION: Female, 79 years old with history of post left upper lobectomy, , FINDINGS: There is postoperative volume loss in the left hemithorax. The heart is within the left side of the c hest. Atherosclerotic arch calcifications. Apically directed left-sided chest tube is noted. No appre ciable pneumothorax. There is some minimal patchy density at the right costophrenic angle. Loop recor waleska device at the left brachial abdominal junction. IMPRESSION: 1. Postoperative volume loss left hemithorax with the heart sitting in the left side of the chest. Le ft-sided chest tube. No appreciable pneumothorax. 2. Some minimal patchy density at the right costophrenic angle. [facility], , 09/03/2024 12:18 PM
[2024-09-03] MEDS: DEXTROSE 5%-0.45% NACL 1,000 ML IV SCH (15:24)
[2024-09-03] MEDS: KETOROLAC 15 MG/ML 1 ML VIAL IVP SCH (15:25)
--- NOTE | 2024-09-03 15:26 | P.CNPUL ---
History of Present Illness Consult date: 09/03/24 Requesting physician: Malachi Keith Reason for consult: abnormal CXR/CT Chief complaint: Pulmonary adenocarcinoma History of present illness: This is a pleasant 79-year-old female patient with a known history of hypertension, hypothyroidism, hyperlipidemia who had been diagnosed with pulmonary adenocarcinoma in April 2024. She is status post chemotherapy. She is currently on Keytruda. She was brought in today electively for a left upper lobectomy with mediastinal dissection of lymph nodes. Operative chest x-ray reveals volume loss in the left Carter thorax with left-sided chest tube in place. No appreciable pneumothorax. White count 4.1. Hemoglobin 9.6. Platelets 338. He is seen in consultation on the selective care unit. She is currently resting in bed. Still somewhat drowsy from anesthesia. She is arousable. Continue good O2 saturations up to 100% on 3 L/min per nasal cannula. She is afebrile. Hemodynamically stable. Denies any significant chest discomfort at this time. There is a positive leak noted in the Pleur-evac. Currently to wall suction. She will be educated regarding the use of the incentive spirometer. Dilators have been ordered. Lactated Ringer's at 50 mL/h. Heparin for DVT prophylaxis. Receiving cefazolin. Family is at the bedside. Review of Systems REVIEW OF SYSTEMS: CONSTITUTIONAL: Denies any recent significant weight loss or weight gain. EYES: Denies change in vision. EARS, NOSE, MOUTH, THROAT: Denies headaches, denies sore throat. CARDIOVASCULAR: Positive for left-sided surgical site chest pain, no p alpitations or syncopal episodes. RESPIRATORY: Denies shortness of breath, cough, congestion or hemoptysis. GASTROINTESTINAL: Denies change in appetite, denies abdominal pain GENITOURINARY: Denies hematuria, denies infections. MUSKULOSKELETAL: Denies pain, denies swelling. INTEGUMENTARY: Denies rash, denies eczema. NEUROLOGICAL: Denies recent memory loss, no recent seizure activity. PSYCHIATRIC: Denies anxiety, denies depression. HEMATOLOGIC/LYMPHATIC: Denies anemia, denies enlarged lymph nodes. Past Medical History Past Medical History: Cancer, GERD/Reflux, Hyperlipidemia, Hypertension, Musculoskeletal Disorder, Osteoarthritis (OA), Skin Disorder, Supraventricular Tachycardia (SVT), Thyroid Disorder Additional Past Medical History / Comment(s): left upper lung CA-dx March 2024, HX KIDNEY STONES, HIATAL HERNIA, OSTEOPOROSIS. "Gets rash when stressed out.",AV block History of Any Multi-Drug Resistant Organisms: None Reported Past Surgical History: Cardiac Ablation, Hernia Repair, Hysterectomy Additional Past Surgical History / Comment(s): CYST ON TAILBONE REMOVED, BILATERAL CATARACT SURGERY, RIGHT EYE SURGERY, hiatal hernia repair 05/18/22, rig ht eye surgery May 2021-had an emacular hole, barium swallow,lung bx Past Anesthesia/Blood Transfusion Reactions: Postoperative Nausea & Vomiting (PONV) Additional Past Anesthesia/Blood Transfusion Reaction / Comment(s): macular hole surgery = ponv Type of Cardiac Device: Loop Smoking Status: Former smoker - Past Family History Daughter(s) Family Medical History: Cancer Additional Family Medical History / Comment(s): CERVICAL CANCER. Mother Family Medical History: Cancer Additional Family Medical History / Comment(s): CERVICAL CANCER. Medications and Allergies Home Medications Medication Instructions Recorded Confirmed Type Levothyroxine Sodium [Synthroid] 25 mcg PO QAM 04/15/19 09/03/24 History ALPRAZolam [Xanax] 0.5 mg PO BID PRN 02/01/22 09/03/24 History Oxybutynin Chloride 5 mg PO HS 02/01/22 09/03/24 History Atorvastatin [Lipitor] 20 mg PO HS 09/27/23 09/03/24 History Folic Acid 1 mg PO DAILY 06/29/24 09/03/24 History Losartan [Cozaar] 25 mg PO HS 06/29/24 09/03/24 History Pembrolizumab [Keytruda] 200 mg IV Q21D 06/29/24 09/03/24 History Allergies Allergy/AdvReac Type Severity Reaction Status Date / Time No Known Allergies Allergy Verified 09/03/24 06:30 Physical Exam Vitals: Vital Signs Temp Pulse Resp BP BP BP Pulse Ox 09/03/24 13:33 95 16 107/59 99 09/03/24 13:18 96 16 115/64 100 09/03/24 13:03 97 18 111/56 100 09/03/24 12:48 95 18 110/61 110/61 100 09/03/24 12:33 94 18 139/62 128/59 96 09/03/24 12:18 86 16 143/63 135/60 94 L 09/03/24 12:03 80 16 157/77 174/78 94 L 09/03/24 11:48 78 16 163/86 160/75 96 09/03/24 11:33 76 18 163/75 164/77 96 09/03/24 11:18 96.8 F L 71 18 148/73 170/74 95 09/03/24 07:54 70 16 98 09/03/24 07:10 70 16 156/73 98 09/03/24 06:43 97.3 F L 60 18 143/68 98 Intake and Output 09/03/24 09/03/24 09/03/24 06:59 14:59 22:59 Intake Total 2800 Output Total 690 Balance 2110 Intake: IV 2800 Output: Urine 590 Estimated Blood Loss 100 Other: Weight 48.6 kg GENERAL EXAM: Drowsy, arousable, 79-year-old female, on 3 L nasal cannula, fairly comfortable in no apparent distress. HEAD: Normocephalic. EYES: Normal reaction of pupils, equal size. NOSE: Clear with pink turbinates. THROAT: No erythema or exudates. NECK: No masses, no JVD. CHEST: No chest wall deformity. Left-sided chest tube in place to Pleur-evac and wall suction. Positive leak. LUNGS: Equal air entry with no crackles, wheeze, rhonchi or dullness. CVS: S1 and S2 normal with no audible murmur, regular rhythm. ABDOMEN: No hepatosplenomegaly, normal bowel sounds, no guarding or rigidity. SPINE: No scoliosis or deformity SKIN: No rashes CENTRAL NERVOUS SYSTEM: No focal deficits, tone is normal in all 4 extremities. EXTREMITIES: There is no peripheral edema. No clubbing, no cyanosis. Peripheral pulses are intact. 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 Previous chemotherapy and currently on Keytruda. Brought in today electively for a robotic assisted left upper lobectomy with mediastinal lymph node dissection. Postoperative day #0 Former smoker, quit in 2019 Hypertension Hyperlipidemia Hypothyroidism Plan: The patient was seen and evaluated Chest x-ray, labs and medications reviewed Currently stable and on 3 L nasal cannula Titrate the FiO2 as tolerated Encourage increased use of the incentive spirometer Continue bronchodilators Continue fluid resuscitation Heparin for DVT prophylaxis Continue cefazolin x 2 doses Increase her activity as tolerated We will continue to follow and make further recommendations based on her clinical status I have personally seen and examined the patient, performed the documentation and the assessment and plan as written. Number of minutes spent on the visit: 20 Dictation was produced using [email or web address] dictation software. Please excuse any grammatical, word or spelling errors.
[2024-09-03] MEDS: ONDANSETRON 4 MG/2 ML VIAL IVP PRN (18:15)
[2024-09-03] MEDS: HEPARIN SODIUM,PORCINE 5,000 UNIT/ML 1 ML VIAL SQ SCH (18:15)
[2024-09-03] MEDS: HYDROcodone/APAP 5-325MG 1 EACH TAB PO PRN (18:15)
[2024-09-03] MEDS: oxyBUTYnin chloride 5 MG TAB PO SCH (20:14)
[2024-09-03] MEDS: SENNOSIDES-DOCUSATE SODIUM 1 EACH TAB PO SCH (20:20)
[2024-09-03] MEDS: ALPRAZolam 0.5 MG TAB PO PRN (20:20)
[2024-09-03] MEDS: ATORVASTATIN 20 MG TAB PO SCH (20:20)
[2024-09-03] MEDS: LOSARTAN 25 MG TAB PO SCH (20:20)
--- NOTE | 2024-09-03 21:10 | P.ANPRN ---
Procedure Note - Anesthesia - Invasive Line Right Arterial Line Time Out Performed: Yes Date of Procedure: 09/03/24 Time of Procedure: 06:59 Location of Patient: PreOp Preparation: Sterile Prep, Sterile Dressing Arterial Line Location: Briachial Ultrasound Used: No Purpose - Visualization and Identification of Vasculature: No Image Stored and Saved: No Narrative: Invasive line placement per sterile protocol utilized.
[2024-09-04] MEDS: PANTOPRAZOLE 40 MG TABLET PO SCH (05:59)
[2024-09-04] MEDS: LEVOTHYROXINE 25 MCG TAB PO SCH (05:59)
[2024-09-04] MEDS ORDERED: HYDROmorphone 0.5 MG/0.5 ML SYRINGE IVP PRN (07:00)
[2024-09-04 07:13] LABS: African American GFR (CKD) >90 (>60 ml/min/1.73 sqM); Anion Gap 7 mmol/L; Blood Urea Nitrogen 12 mg/dL (7-17); Calcium 8.6 mg/dL (8.4-10.2); Carbon Dioxide 22 mmol/L (22-30); Chloride 105 mmol/L (98-107); Glucose 121 mg/dL (74-99); Non-African American GFR(CKD) 84 (>60 ml/min/1.73 sqM); Sodium 134 mmol/L (137-145)
[2024-09-04 07:14] LABS: Potassium 4.8 mmol/L (3.5-5.1)
[2024-09-04 07:24] LABS: Anisocytosis Slight; Basophils % (A) 0 %; Eosinophils % (A) 0 %; HCT 26.8 % (34.0-46.0); HGB 8.6 gm/dL (11.4-16.0); Hypochromasia Moderate; Lymphocytes # (A) 1.5 k/uL (1.0-4.8); Lymphocytes % (A) 30 %; MCH 32.7 pg (25.0-35.0); MCV 102.2 fL (80.0-100.0); Macrocytosis Moderate; Mean Platelet Volume 7.6; Monocytes # (A) 0.5 k/uL (0-1.0); Monocytes % (A) 10 %; Neutrophils # (A) 2.9 k/uL (1.3-7.7); Neutrophils % (A) 57 %; Platelet Count 304 k/uL (150-450); RBC 2.62 m/uL (3.80-5.40)
--- NOTE | 2024-09-04 08:05 | P.PN ---
Subjective Progress Note Date: 09/04/24 Principal diagnosis: Advanced carcinoma of lung left upper lobe, biopsy-proven adenocarcinoma status post induction chemotherapy. Previous medical history of hypertension, hyperli pidemia, SVT status post ablation, hypothyroid, hiatal hernia status post repair in 2021, previous tobacco dependence POD #1 robotic assisted thoracoscopic left upper lobectomy with mediastinal lymph node dissection. The patient was seen and examined this morning sitting up in recliner on the cardiac stepdown unit in no acute distress. She remains in sinus rhythm, hemodynamically stable. Currently on 2 L nasal cannula with oxygen saturation in the high 90s, able to achieve 750 to 1000 mL on her incentive spirometry. Left pleural chest tube present to continuous wall suction, minimal air leak present with forceful coughing. Chest x-ray, lab work reviewed. Discussed with Dr. Keith this morning. States pain is controlled on current medication regimen. No other new concerns. Objective - Vital Signs Vital signs: Vital Signs Temp 98 F 09/04/24 04:30 Pulse 86 09/04/24 04:30 Resp 16 09/04/24 04:30 BP 115/57 09/04/24 04:30 Pulse Ox 97 09/04/24 04:30 FiO2 Intake & Output 09/03/24 09/04/24 09/04/24 18:59 06:59 18:59 Intake Total 2800 640 Output Total 940 1215 Balance 1860 -575 Weight 51.5 kg Intake: IV 2800 40 Invasive Line 1 20 Invasive Line 2 20 Oral 600 Output: Chest Tube Drainage 200 140 Left 200 140 Urine 640 1075 Uretheral (Abdi) 50 Estimated Blood Loss 100 Other: Voiding Method Indwelling Catheter Bedside Commode - Exam CONSTITUTIONAL: Appears comfortable, cooperative, no acute distress RESPIRATORY: Lungs sounds with expiratory wheezes present. Respirations even, nonlabored. Currently on 2 L nasal cannula with oxygen saturation 97%. Able to achieve 750-1000 mL on incentive spirometry. Strong cough. CARDIOVASCULAR: S1, S2 present. Regular rate and rhythm, sinus rhythm on telemetry. Palpable peripheral pulses bilaterally. No edema present. No calf pain or tenderness noted. SCDs present. GASTROINTESTINAL: Abdomen soft, nontender, nondistended. Active bowel sounds present 4 quadrants. Tolerating diet. Positive flatus GENITOURINARY: Continues to void clear, yellow urine INTEGUMENTARY: Skin is warm and dry with evidence of good perfusion. Thoracic incision well approximated and covered with dry intact dressing. NEUROLOGIC: Cranial nerves II through XII intact MUSKULOSKELETAL: Able to move all extremities, strength equal bilaterally, gait normal PSYCHIATRIC: Alert and oriented to person place and time, appropriate affect, intact judgment and insight INVASIVE LINES AND TUBES: Left pleural chest tube present and connected to wall suction, minimal air leak present with forceful coughing, 90 mL serosanguineous drainage overnight, 350 mL since surgery - Allied health notes Allied health notes reviewed: nursing - Labs CBC & Chem 7: 09/04/24 06:28 09/04/24 06:28 Labs: Abnormal Lab Results - Last 24 Hours (Table) 09/04/24 09/04/24 Range/Units 06: 06:28 RBC 2.62 L (3.80-5.40) m/uL Hgb 8.6 L (11.4-16.0) gm/dL Hct 26.8 L (34.0-46.0) % MCV 102.2 H (80.0-100.0) fL RDW 18.0 H (11.5-15.5) % Sodium 134 L (137-145) mmol/L Glucose 121 H (74-99) mg/dL - Imaging and Cardiology Chest x-ray: image reviewed Assessment and Plan Assessment: Advanced carcinoma of lung left upper lobe, biopsy-proven adenocarcinoma status post induction chemotherapy, status post robotic assisted thoracoscopic left upper lobectomy with mediastinal lymph node dissection. History of hypertension Hyperlipidemia SVT status post ablation Hypothyroid Hiatal hernia status post repair in 2021 Previous tobacco dependence Plan: Chest tube placed to waterseal this morning, will repeat x-ray around noon Wean oxygen as tolerated. Encourage incentive spirometry use 10 times every hour while awake. Bronchodilators per pulmonology Will monitor daily labs and x-rays Increase activity as tolerated Continue home medications Pain control per current medication regimen GI/DVT prophylaxis More recommendations to follow
--- NOTE | 2024-09-04 08:45 | XR ---
EXAMINATION TYPE: XR chest 1V DATE OF EXAM: 09/04/2024 COMPARISON: 09/03/2024 CLINICAL INDICATION: Female, 79 years old with history of post lobectomy; TECHNIQUE: Single frontal view of the chest is obtained. FINDINGS: Redemonstrated postsurgical changes left hemithorax with volume loss and positioning of the heart within the left side of the chest. Left-sided chest tube in place. No visualized small left ap ical pneumothorax measuring 1.6 cm. Right lung and pleural space are clear. Loop recorder device proj ecting at the left base. IMPRESSION: Postsurgical volume loss left hemithorax redemonstrated. Left chest tube in place. No vi sualized small 1.6 cm left apical pneumothorax. [facility], , 09/04/2024 8:42 AM
[2024-09-04] MEDS: FOLIC ACID 1 MG TAB PO SCH (08:49)
--- NOTE | 2024-09-04 12:43 | XR ---
EXAMINATION TYPE: XR chest 1V portable DATE OF EXAM: 09/04/2024 12:12 PM COMPARISON: Earlier today CLINICAL INDICATION: Female, 79 years old with history of chest tube water seal;eval lobectomy, , FINDINGS: Redemonstrated postsurgical change with volume loss in the left hemithorax. Sliding increasing opacit y at the left base. Left-sided chest tube redemonstrated. The previous lateral apical component of th e pneumothorax has improved. Medial left apical component now measures 1.6 cm. Loop recorder device a t the left base. IMPRESSION: 1. Left-sided chest tube in place. The previous lateral apical component to the pneumothorax has impr anne. However, a new left apical component now measures 1.6 cm. 2. Postsurgical volume loss left hemithorax. Some increasing opacity at the left base, probably atele ctasis. [facility], , 09/04/2024 12:41 PM
--- NOTE | 2024-09-04 13:02 | P.PN ---
Subjective Progress Note Date: 09/04/24 Principal diagnosis: POD #1 robotic assisted thoracoscopic left upper lobectomy with mediastinal lymph node dissection. 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 She is status post chemotherapy. She is currently on Keytruda. She was brought in today electively for a left upper lobectomy with mediastinal dissection of lymph nodes. Operative chest x-ray reveals volume loss in the left Carter thorax with left-sided chest tube in place. No appreciable pneumothorax. White count 4.1. Hemoglobin 9.6. Platelets 338. He is seen in consultation on the selective care unit. She is currently resting in bed. Still somewhat drowsy from anesthesia. She is arousable. Continue good O2 saturations up to 100% on 3 L/min per nasal cannula. She is afebrile. Hemodynamically stable. Denies any significant chest discomfort at this time. There is a positive leak noted in the Pleur-evac. Currently to wall suction. She will be educated regarding the use of the incentive spirometer. Dilators have been ordered. Lactated Ringer's at 50 mL/h. Heparin for DVT prophylaxis. Receiving cefazolin. Family is at the bedside. Patient was seen today on 09/04/2024, patient is doing well, she is status post surgery as noted above, does not seem to be in any distress, patient is on room air, chest tube is already on waterseal, patient is achieving about 1000 cc on her incentive spirometry, patient is doing great, and doing as well as expected. WBC count is 5 hemoglobin 8.6 basic metabolic profile is normal renal profile is normal Objective - Vital Signs Vital signs: Vital Signs Temp 99.6 F 09/04/24 08:00 Pulse 88 09/04/24 11:46 Resp 18 09/04/24 08:00 BP 119/59 09/04/24 08:00 Pulse Ox 94 L 09/04/24 08:55 FiO2 Intake & Output 09/03/24 09/04/24 09/04/24 18:59 06:59 18:59 Intake Total 2800 640 138 Output Total 940 1215 Balance 1860 -575 138 Weight 51.5 kg Intake: IV 2800 40 20 Invasive Line 1 20 10 Invasive Line 2 20 10 Oral 600 118 Output: Chest Tube Drainage 200 140 Left 200 140 Urine 640 1075 Uretheral (Abdi) 50 Estimated Blood Loss 100 Other: Voiding Method Indwelling Catheter Bedside Commode Toilet - Exam GENERAL EXAM: Revealed 79-year-old female in no distress, very pleasant. On room air with O2 sat 94% HEAD: Normocephalic. EYES: Normal reaction of pupils, equal size. NOSE: Clear with pink turbinates. THROAT: No erythema or exudates. NECK: No masses, no JVD. CHEST: No chest wall deformity. Left-sided chest tube is noted, no airleak noted. LUNGS: Equal air entry with no crackles, wheeze, rhonchi or dullness. CVS: S1 and S2 normal with no audible murmur, regular rhythm. ABDOMEN: No hepatosplenomegaly, normal bowel sounds, no guarding or rigidity. SKIN: No rashes alert and oriented x 3 no gross focal deficit no focal deficits, EXTREMITIES: There is no peripheral edema. No clubbing, no cyanosis. Peripheral pulses are intact. - Labs CBC & Chem 7: 09/04/24 06:28 09/04/24 06:28 Labs: Abnormal Lab Results - Last 24 Hours (Table) 09/04/24 09/04/24 Range/Units 06:28 06:28 RBC 2.62 L (3.80-5.40) m/uL Hgb 8.6 L (11.4-16.0) gm/dL Hct 26.8 L (34.0-46.0) % MCV 102.2 H (80.0-100.0) fL RDW 18.0 H (11.5-15.5) % Sodium 134 L (137-145) mmol/L Glucose 121 H (74-99) mg/dL Assessment and Plan Assessment: Impression: Upper lobe adenocarcinoma, patient is status post induction chemotherapy and is now followed by robotic assisted thoracoscopic left upper lobectomy and mediastinal node dissection postoperative day #1 History of hypertension Hyperlipidemia SVT status post ablation Hypothyroid Hiatal hernia status post repair in 2021 Previous tobacco dependence Plan: Reviewed chest x-ray Chest tube was put to waterseal Continue incentive spirometry Continue bronchodilators Ambulate as tolerated Continue pain management/control Continue GI DVT prophylaxis Will continue to follow Time with Patient: Less than 30
--- NOTE | 2024-09-04 13:18 | P.ANPRN ---
Procedure Note - Anesthesia - Nerve Block Performed Left Erector Spinae Single Time Out Performed: Yes Date of Procedure: 09/03/24 Procedure Start Time: 07:48 Procedure Stop Time: 07:51 Location of Patient: PreOp Indication: Acute Post-Operative Pain, Requested by Surgeon Sedation Type: Sedate with meaningful contact maintained Preparation: Sterile Prep Position: Sitting Needle Types: Pajunk Needle Gauge: 21 Ultrasound used to visualize needle placement: Yes Ultrasound used to observe medication spread: Yes Blood Aspirated: No Pain Paresthesia on Injection Noted: No Resistance on Injection: Normal Image Stored and Saved: Yes Events: Uneventful and Well Tolerated (Ropivacaine 0.5% 15 cc plus normal saline 10 cc plus dexamethasone 4 mg given at T6 on the left side)
--- NOTE | 2024-09-05 07:17 | P.PN ---
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 Previous medical history of hypertension, hyperli pidemia, SVT status post ablation, hypothyroid, hiatal hernia status post repair in 2021, previous tobacco dependence POD #2 robotic assisted thoracoscopic left upper lobectomy with mediastinal lymph node dissection. The patient was seen and examined this morning sitting up in recliner on the cardiac stepdown unit in no acute distress. She remains in sinus rhythm, hemodynamically stable. Currently on room air with oxygen saturation in the high 90s, able to achieve 1000 mL on her incentive spirometry. Left pleural chest tube present to seal, minimal air leak present with forceful coughing. Chest x-ray, lab work reviewed. Discussed with Dr. Keith this morning. States pain is controlled on current medication regimen. Has been ambulatory in the hallway. No other new concerns. Objective - Vital Signs Vital signs: Vital Signs Temp 98.1 F 09/05/24 00:34 Pulse 94 09/05/24 04:32 Resp 18 09/05/24 04:32 BP 136/73 09/05/24 04:32 Pulse Ox 97 09/05/24 04:32 FiO2 Intake & Output 09/04/24 09/05/24 09/05/24 18:59 06:59 18:59 Intake Total 148 20 Output Total 1950 Balance 148 -1930 Weight 51.4 kg Intake: IV 30 20 Invasive Line 1 10 Invasive Line 2 20 20 Oral 118 Output: Chest Tube Drainage 50 Left 50 Urine 1900 Other: Voiding Method Toilet Toilet - Exam CONSTITUTIONAL: Appears comfortable, cooperative, no acute distress RESPIRATORY: Lungs sounds with expiratory wheezes present. Respirations even, nonlabored. Currently on room air with oxygen saturation 97%. Able to achieve 1000 mL on incentive spirometry. Strong cough. CARDIOVASCULAR: S1, S2 present. Regular rate and rhythm, sinus rhythm on telemetry. Palpable peripheral pulses bilaterally. No edema present. No calf pain or tenderness noted. SCDs present. GASTROINTESTINAL: Abdomen soft, nontender, nondistended. Active bowel sounds present 4 quadrants. Tolerating diet. Positive flatus GENITOURINARY: Continues to void clear, yellow urine INTEGUMENTARY: Skin is warm and dry with evidence of good perfusion. Thoracic incision well approximated and covered with dry intact dressing. NEUROLOGIC: Cranial nerves II through XII intact MUSKULOSKELETAL: Able to move all extremities, strength equal bilaterally, gait normal PSYCHIATRIC: Alert and oriented to person place and time, appropriate affect, intact judgment and insight INVASIVE LINES AND TUBES: Left pleural chest tube present to waterseal, minimal air leak present with forceful coughing, 30 mL serosanguineous drainage overni ght, 50 mL in the last 24 hours - Allied health notes Allied health notes reviewed: nursing - Labs CBC & Chem 7: 09/04/24 06:28 09/04/24 06:28 Labs: Abnormal Lab Results - Last 24 Hours (Table) 09/04/24 09/04/24 Range/Units 06: 06:28 RBC 2.62 L (3.80-5.40) m/uL Hgb 8.6 L (11.4-16.0) gm/dL Hct 26.8 L (34.0-46.0) % MCV 102.2 H (80.0-100.0) fL RDW 18.0 H (11.5-15.5) % Sodium 134 L (137-145) mmol/L Glucose 121 H (74-99) mg/dL - Imaging and Cardiology Chest x-ray: image reviewed Assessment and Plan Assessment: Advanced carcinoma of lung left upper lobe, biopsy-proven adenocarcinoma status post induction chemotherapy, status post robotic assisted thoracoscopic left upper lobectomy with mediastinal lymph node dissection. History of hypertension Hyperlipidemia SVT status post ablation Hypothyroid Hiatal hernia status post repair in 2021 Previous tobacco dependence Plan: Continue chest tube placed to waterseal, monitor for airleak resolution Encourage incentive spirometry use 10 times every hour while awake. Bronchod ilators per pulmonology Will monitor daily labs and x-rays Increase activity as tolerated Continue home medications Pain control per current medication regimen GI/DVT prophylaxis More recommendations to follow
--- NOTE | 2024-09-05 07:35 | XR ---
EXAMINATION TYPE: XR chest 1V portable DATE OF EXAM: 09/05/2024 4:51 AM COMPARISON: Chest radiographs from 09/04/2024 CLINICAL INDICATION: Female, 79 years old with history of Post left upper lobectomy; [facility] TECHNIQUE: XR chest 1V portable Frontal view of the chest. FINDINGS: Lungs/Pleura: There is no evidence of pleural effusion, focal consolidation, or right pneumothorax. Pulmonary vascularity: Unremarkable. Heart/mediastinum: Cardiomediastinal silhouette is unremarkable. Musculoskeletal: No acute osseous pathology. Other findings: None Lines/Tubes: Left thoracotomy tube is present with suggestion of trace pneumothorax. IMPRESSION: Left thoracotomy tube with trace pneumothorax. [facility], , 09/05/2024 7:32 AM
[2024-09-05] MEDS: LORATADINE 10 MG TAB PO SCH (09:53)
[2024-09-05 10:52] LABS: Anisocytosis Slight; HCT 28.3 % (34.0-46.0); HGB 9.1 gm/dL (11.4-16.0); Hypochromasia Slight; MCH 32.9 pg (25.0-35.0); MCHC 32.1 g/dL (31.0-37.0); MCV 102.6 fL (80.0-100.0); Macrocytosis Moderate; Mean Platelet Volume 8.1; Platelet Count 285 k/uL (150-450); RBC 2.75 m/uL (3.80-5.40); RDW 18.7 % (11.5-15.5); WBC 6.3 k/uL (3.8-10.6)
[2024-09-05 11:05] LABS: African American GFR (CKD) >90 (>60 ml/min/1.73 sqM); Anion Gap 8 mmol/L; Blood Urea Nitrogen 8 mg/dL (7-17); Calcium 9.4 mg/dL (8.4-10.2); Carbon Dioxide 23 mmol/L (22-30); Chloride 108 mmol/L (98-107); Glucose 99 mg/dL (74-99); Non-African American GFR(CKD) 84 (>60 ml/min/1.73 sqM); Potassium 4.1 mmol/L (3.5-5.1); Sodium 139 mmol/L (137-145)
--- NOTE | 2024-09-05 15:57 | P.PN ---
Subjective Progress Note Date: 09/05/24 Principal diagnosis: POD #2 robotic assisted thoracoscopic left upper lobectomy with mediastinal lymph node dissection. 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 She is status post chemotherapy. She is currently on Keytruda. She was brought in today electively for a left upper lobectomy with mediastinal dissection of lymph nodes. Operative chest x-ray reveals volume loss in the left Carter thorax with left-sided chest tube in place. No appreciable pneumothorax. White count 4.1. Hemoglobin 9.6. Platelets 338. He is seen in consultation on the selective care unit. She is currently resting in bed. Still somewhat drowsy from anesthesia. She is arousable. Continue good O2 saturations up to 100% on 3 L/min per nasal cannula. She is afebrile. Hemodynamically stable. Denies any significant chest discomfort at this time. There is a positive leak noted in the Pleur-evac. Currently to wall suction. She will be educated regarding the use of the incentive spirometer. Dilators have been ordered. Lactated Ringer's at 50 mL/h. Heparin for DVT prophylaxis. Receiving cefazolin. Family is at the bedside. Patient was seen today on 09/04/2024, patient is doing well, she is status post surgery as noted above, does not seem to be in any distress, patient is on room air, chest tube is already on waterseal, patient is achieving about 1000 cc on her incentive spirometry, patient is doing great, and doing as well as expected. WBC count is 5 hemoglobin 8.6 basic metabolic profile is normal renal profile is normal Seen today on 09/05/2024 patient is now postoperative day #2, she had assisted thoracoscopic left upper lobectomy and mediastinal lymph node dissection patient is doing great, on room air, not in any distress, achieving over 1000 cc on her incentive spirometry continues to have chest tube in place on waterseal, minimal air leak noted. X-ray showed no evidence of pneumothorax, adequate placement of the chest tube, pain is under control, patient denies any cough wheezing or shortness of breath. Objective - Vital Signs Vital signs: Vital Signs Temp 98.3 F 09/05/24 11:16 Pulse 70 09/05/24 11:16 Resp 16 09/05/24 11:16 BP 114/62 09/05/24 11:16 Pulse Ox 95 09/05/24 11:16 FiO2 Intake & Output 09/04/24 09/05/24 09/05/24 18:59 06:59 18:59 Intake Total 148 20 138 Output Total 1950 0 Balance 148 -1930 138 Weight 51.4 kg Intake: IV 30 20 20 Invasive Line 1 10 Invasive Line 2 20 20 20 Oral 118 118 Output: Chest Tube Drainage 50 0 Left 50 0 Urine 1900 Other: Voiding Method Toilet Toilet Toilet - Exam GENERAL EXAM: Revealed 79-year-old female in no distress, very pleasant. On room air with O2 sat 94% HEAD: Normocephalic. EYES: Normal reaction of pupils, equal size. NOSE: Clear with pink turbinates. THROAT: No erythema or exudates. NECK: No masses, no JVD. CHEST: No chest wall deformity. Left-sided chest tube is noted, on waterseal minimal air leak noted LUNGS: Equal air entry with no crackles, wheeze, rhonchi or dullness. CVS: S1 and S2 normal with no audible murmur, regular rhythm. ABDOMEN: No hepatosplenomegaly, normal bowel sounds, no guarding or rigidity. SKIN: No rashes alert and oriented x 3 no gross focal deficit no focal deficits, EXTREMITIES: There is no peripheral edema. No clubbing, no cyanosis. Peripheral pulses are intact. - Labs CBC & Chem 7: 09/05/24 09:26 09/05/24 09:26 Labs: Abnormal Lab Results - Last 24 Hours (Table) 09/05/24 09/05/24 Range/Units 09:26 09:26 RBC 2.75 L (3.80-5.40) m/uL Hgb 9.1 L (11.4-16.0) gm/dL Hct 28.3 L (34.0-46.0) % MCV 102.6 H (80.0-100.0) fL RDW 18.7 H (11.5-15.5) % Chloride 108 H (98-107) mmol/L Assessment and Plan Assessment: Impression: Upper lobe adenocarcinoma, patient is status post induction chemotherapy and is now followed by robotic assisted thoracoscopic left upper lobectomy and mediastinal node dissection postoperative day #2 History of hypertension Hyperlipidemia SVT status post ablation Hypothyroid Hiatal hernia status post repair in 2021 Previous tobacco dependence Plan: X-ray is reassuring Continue chest tube to waterseal Continue incentive spirometry Continue bronchodilators Continue to ambulate Continue pain management/control Continue GI DVT prophylaxis Will continue to follow Time with Patient: Less than 30
--- NOTE | 2024-09-06 07:33 | XR ---
EXAMINATION TYPE: XR chest 2V DATE OF EXAM: 09/06/2024 6:39 AM COMPARISON: Chest radiograph from one day prior. CLINICAL INDICATION: Female, 79 years old with history of Left upper lobectomy; [facility] TECHNIQUE: XR chest 2V Frontal and lateral views of the chest. FINDINGS: Lungs/Pleura: Left thoracotomy tube with possible trace left pneumothorax. There is no evidence of pl eural effusion, focal consolidation, or right pneumothorax. Pulmonary vascularity: Unremarkable. Heart/mediastinum: Cardiomediastinal silhouette is unremarkable. A loop recorder projects over the le ft thorax over the heart. Musculoskeletal: No acute osseous pathology. IMPRESSION: Left thoracotomy tube with trace apical pneumothorax. [facility], , 09/06/2024 7:31 AM
--- NOTE | 2024-09-06 07:53 | P.PN ---
Subjective Progress Note Date: 09/06/24 Principal diagnosis: Advanced carcinoma of lung left upper lobe, biopsy-proven adenocarcinoma status post induction chemotherapy. Previous medical history of hypertension, hyperli pidemia, SVT status post ablation, hypothyroid, hiatal hernia status post repair in 2021, previous tobacco dependence POD #3 robotic assisted thoracoscopic left upper lobectomy with mediastinal lymph node dissection. The patient was seen and examined this morning sitting up in recliner on the cardiac stepdown unit in no acute distress. She remains in sinus rhythm, hemodynamically stable. Currently on room air with oxygen saturation in the mid 90s, able to achieve 1000 mL on her incentive spirometry. Left pleural chest tube present to water seal, minimal air leak present with forceful coughing only. Chest x-ray reviewed. States pain is controlled on current medication regimen. Has been ambulatory in the hallway. Discussed with Dr. Jeffries. No other new concerns. Objective - Vital Signs Vital signs: Vital Signs Temp 97.8 F 09/06/24 07:39 Pulse 79 09/06/24 07:39 Resp 16 09/06/24 07:39 BP 158/85 09/06/24 07:39 Pulse Ox 95 09/06/24 07:39 FiO2 Intake & Output 09/05/24 09/06/24 09/06/24 18:59 06:59 18:59 Intake Total 318 Output Total 880 1080 Balance -562 -1080 Weight 49.6 kg Intake: IV 20 Invasive Line 2 20 Oral 298 Output: Chest Tube Drainage 30 60 Left 30 60 Urine 850 1020 Other: Voiding Method Toilet Toilet # Voids 3 - Exam CONSTITUTIONAL: Appears comfortable, cooperative, no acute distress RESPIRATORY: Lungs sounds clear. Respirations even, nonlabored. Currently on room air with oxygen saturation 95%. Able to achieve 1000 mL on incentive spirometry. Strong cough. CARDIOVASCULAR: S1, S2 present. Regular rate and rhythm, sinus rhythm on telemetry. Palpable peripheral pulses bilaterally. No edema present. No calf pain or tenderness noted. SCDs present. GASTROINTESTINAL: Abdomen soft, nontender, nondistended. Active bowel sounds present 4 quadrants. Tolerating diet. Positive flatus GENITOURINARY: Continues to void INTEGUMENTARY: Skin is warm and dry with evidence of good perfusion NEUROLOGIC: Cranial nerves II through XII intact MUSKULOSKELETAL: Able to move all extremities, strength equal bilaterally, gait normal PSYCHIATRIC: Alert and oriented to person place and time, appropriate affect, intact judgment and insight INVASIVE LINES AND TUBES: Left pleural chest tube present to waterseal, minimal air leak present with forceful coughing, 30 mL serosanguineous drainage overnight, 100 mL in the last 24 hours - Allied health notes Allied health notes reviewed: nursing - Labs CBC & Chem 7: 09/06/24 08:13 09/05/24 09:26 Labs: Abnormal Lab Results - Last 24 Hours (Table) 09/05/24 09/05/24 Range/Units 09:26 09:26 RBC 2.75 L (3.80-5.40) m/uL Hgb 9.1 L (11.4-16.0) gm/dL Hct 28.3 L (34.0-46.0) % MCV 102.6 H (80.0-100.0) fL RDW 18.7 H (11.5-15.5) % Chloride 108 H (98-107) mmol/L - Imaging and Cardiology Chest x-ray: report reviewed, image reviewed Assessment and Plan Assessment: Advanced carcinoma of lung left upper lobe, biopsy-proven adenocarcinoma status post induction chemotherapy, status post robotic assisted thoracoscopic left upper lobectomy with mediastinal lymph node dissection. History of hypertension Hyperlipidemia SVT status post ablation Hypothyroid Hiatal hernia status post repair in 2021 Previous tobacco dependence Plan: Continue chest tube placed to waterseal, monitor for airleak resolution Encourage incentive spirometry use 10 times every hour while awake. Bronchodilators per pulmonology Will monitor daily labs and x-rays Increase activity as tolerated Continue home medications Pain control per current medication regimen GI/DVT prophylaxis More recommendations to follow
[2024-09-06 08:30] LABS: Anisocytosis Slight; HGB 8.9 gm/dL (11.4-16.0); Hypochromasia Slight; MCH 32.3 pg (25.0-35.0); MCHC 31.9 g/dL (31.0-37.0); MCV 101.4 fL (80.0-100.0); Macrocytosis Moderate; Mean Platelet Volume 7.9; Platelet Count 258 k/uL (150-450); RBC 2.76 m/uL (3.80-5.40); RDW 18.1 % (11.5-15.5); WBC 5.8 k/uL (3.8-10.6)
[2024-09-06 08:49] LABS: African American GFR (CKD) >90 (>60 ml/min/1.73 sqM); Anion Gap 4 mmol/L; Blood Urea Nitrogen 7 mg/dL (7-17); Calcium 9.2 mg/dL (8.4-10.2); Carbon Dioxide 27 mmol/L (22-30); Chloride 106 mmol/L (98-107); Glucose 107 mg/dL (74-99); Non-African American GFR(CKD) 83 (>60 ml/min/1.73 sqM); Potassium 3.9 mmol/L (3.5-5.1); Sodium 137 mmol/L (137-145)
[2024-09-06] MEDS: HYDROmorphone 1 MG/ML 1 ML SYRINGE IVP STA (10:40)
--- NOTE | 2024-09-06 14:52 | P.PN ---
Subjective Progress Note Date: 09/06/24 Principal diagnosis: POD #3 robotic assisted thoracoscopic left upper lobectomy with mediastinal lymph node dissection. 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 She is status post chemotherapy. She is currently on Keytruda. She was brought in today electively for a left upper lobectomy with mediastinal dissection of lymph nodes. Operative chest x-ray reveals volume loss in the left Carter thorax with left-sided chest tube in place. No appreciable pneumothorax. White count 4.1. Hemoglobin 9.6. Platelets 338. He is seen in consultation on the selective care unit. She is currently resting in bed. Still somewhat drowsy from anesthesia. She is arousable. Continue good O2 saturations up to 100% on 3 L/min per nasal cannula. She is afebrile. Hemodynamically stable. Denies any significant chest discomfort at this time. There is a positive leak noted in the Pleur-evac. Currently to wall suction. She will be educated regarding the use of the incentive spirometer. Dilators have been ordered. Lactated Ringer's at 50 mL/h. Heparin for DVT prophylaxis. Receiving cefazolin. Family is at the bedside. Patient was seen today on 09/04/2024, patient is doing well, she is status post surgery as noted above, does not seem to be in any distress, patient is on room air, chest tube is already on waterseal, patient is achieving about 1000 cc on her incentive spirometry, patient is doing great, and doing as well as expected. WBC count is 5 hemoglobin 8.6 basic metabolic profile is normal renal profile is normal Seen today on 09/05/2024 patient is now postoperative day #2, she had assisted thoracoscopic left upper lobectomy and mediastinal lymph node dissection patient is doing great, on room air, not in any distress, achieving over 1000 cc on her incentive spirometry continues to have chest tube in place on waterseal, minimal air leak noted. X-ray showed no evidence of pneumothorax, adequate placement of the chest tube, pain is under control, patient denies any cough wheezing or shortness of breath. Seen today on 09/06/2024, patient is now postoperative day #3. Doing well, comfortable, not in distress, on room air. Chest x-ray continues to show left sided chest tube in place, and there is a trace of apical pneumothorax. Patient is not in any distress, continues to have some minimal air leak upon coughing. Ambulating doing well with incentive spirometry, hemodynamically stable, on room air and O2 saturation is in the 90s. Objective - Vital Signs Vital signs: Vital Signs Temp 97.8 F 09/06/24 12:21 Pulse 86 09/06/24 12:23 Resp 16 09/06/24 12:21 BP 124/68 09/06/24 12:21 Pulse Ox 98 09/06/24 12:21 FiO2 Intake & Output 09/05/24 09/06/24 09/06/24 18:59 06:59 18:59 Intake Total 318 350 Output Total 880 1080 1250 Balance -562 1080 -900 Weight 49.6 kg Intake: IV 20 20 Invasive Line 2 20 20 Oral 298 330 Output: Chest Tube Drainage 30 60 0 Left 30 60 0 Urine 850 1020 1250 Other: Voiding Method Toilet Toilet Toilet # Voids 3 2 - Exam GENERAL EXAM: Revealed 79-year-old female in no distress, very pleasant. On room air with O2 sat 94% HEAD: Normocephalic. EYES: Normal reaction of pupils, equal size. NOSE: Clear with pink turbinates. THROAT: No erythema or exudates. NECK: No masses, no JVD. CHEST: No chest wall deformity. Left-sided chest tube is noted, on waterseal minimal air leak noted, mostly upon coughing. LUNGS: Equal air entry with no crackles, wheeze, rhonchi or dullness. CVS: S1 and S2 normal with no audible murmur, regular rhythm. ABDOMEN: No hepatosplenomegaly, normal bowel sounds, no guarding or rigidity. SKIN: No rashes alert and oriented x 3 no gross focal deficit no focal deficits, EXTREMITIES: There is no peripheral edema. No clubbing, no cyanosis. Peripheral pulses are intact. - Labs CBC & Chem 7: 09/06/24 08:13 09/06/24 08:13 Labs: Abnormal Lab Results - Last 24 Hours (Table) 09/06/24 09/06/24 Range/Units 08:13 08:13 RBC 2.76 L (3.80-5.40) m/uL Hgb 8.9 L (11.4-16.0) gm/dL Hct 28.0 L (34.0-46.0) % MCV 101.4 H (80.0-100.0) fL RDW 18.1 H (11.5-15.5) % Glucose 107 H (74-99) mg/dL Assessment and Plan Assessment: Impression: Upper lobe adenocarcinoma, patient is status post induction chemotherapy and is now followed by robotic assisted thoracoscopic left upper lobectomy and medias tinal node dissection postoperative day #3 History of hypertension Hyperlipidemia SVT status post ablation Hypothyroid Hiatal hernia status post repair in 2021 Previous tobacco dependence Plan: X-ray is reassuring, minimal apical pneumothorax is noted, chest tube remains in place Continue chest tube to waterseal Continue incentive spirometry Continue bronchodilators Continue to ambulate Continue GI DVT prophylaxis Will continue to follow Time with Patient: Less than 30
--- NOTE | 2024-09-07 07:55 | P.PN ---
Subjective Progress Note Date: 09/07/24 Principal diagnosis: Advanced carcinoma of lung left upper lobe, biopsy-proven adenocarcinoma status post induction chemotherapy. Previous medical history of hypertension, hyperli pidemia, SVT status post ablation, hypothyroid, hiatal hernia status post repair in 2021, previous tobacco dependence POD #4 robotic assisted thoracoscopic left upper lobectomy with mediastinal lymph node dissection. The patient was seen and examined this morning sitting up in recliner on the cardiac stepdown unit in no acute distress. She remains in sinus rhythm, hemodynamically stable. Currently on room air with oxygen saturation in the mid 90s, able to achieve 1000 mL on her incentive spirometry. Left pleural chest tube present to water seal, minimal air leak present with forceful coughing only. Chest x-ray reviewed. States pain is controlled on current medication regimen. Has been ambulatory in the hallway. No other new concerns. Objective - Vital Signs Vital signs: Vital Signs Temp 97.7 F 09/07/24 04:00 Pulse 93 09/07/24 04:00 Resp 16 09/07/24 04:00 BP 117/74 09/07/24 04:00 Pulse Ox 93 L 09/07/24 04:00 FiO2 Intake & Output 09/06/24 09/07/24 09/07/24 18:59 06:59 18:59 Intake Total 470 20 Output Total 1460 40 1000 Balance - Weight 49.8 kg Intake: IV 20 20 Invasive Line 2 20 20 Oral 450 Output: Chest Tube Drainage 10 40 Left 10 40 Urine 1450 1000 Other: Voiding Method Toilet Toilet # Voids 1 - Exam CONSTITUTIONAL: Appears comfortable, cooperative, no acute distress RESPIRATORY: Lungs sounds clear. Respirations even, nonlabored. Currently on room air with oxygen saturation 93%. Able to achieve 1000 mL on incentive spirometry. Strong cough. CARDIOVASCULAR: S1, S2 present. Regular rate and rhythm, sinus rhythm on telemetry. Palpable peripheral pulses bilaterally. No edema present. No calf pain or tenderness noted. SCDs present. GASTROINTESTINAL: Abdomen soft, nontender, nondistended. Active bowel sounds present 4 quadrants. Tolerating diet. Positive flatus GENITOURINARY: Continues to void INTEGUMENTARY: Skin is warm and dry with evidence of good perfusion NEUROLOGIC: Cranial nerves II through XII intact MUSKULOSKELETAL: Able to move all extremities, strength equal bilaterally, gait normal PSYCHIATRIC: Alert and oriented to person place and time, appropriate affect, intact judgment and insight INVASIVE LINES AND TUBES: Left pleural chest tube present to waterseal, minimal air leak present with forceful coughing, 100 mL serosanguineous drainage in the last 24 hours - Allied health notes Allied health notes reviewed: nursing - Labs CBC & Chem 7: 09/06/24 08:13 09/06/24 08:13 Labs: Abnormal Lab Results - Last 24 Hours (Table) 09/06/24 09/06/24 Range/Units 08:13 08:13 RBC 2.76 L (3.80-5.40) m/uL Hgb 8.9 L (11.4-16.0) gm/dL Hct 28.0 L (34.0-46.0) % MCV 101.4 H (80.0-100.0) fL RDW 18.1 H (11.5-15.5) % Glucose 107 H (74-99) mg/dL - Imaging and Cardiology Chest x-ray: image reviewed Assessment and Plan Assessment: Advanced carcinoma of lung left upper lobe, biopsy-proven adenocarcinoma status post induction chemotherapy, status post robotic assisted thoracoscopic left upper lobectomy with mediastinal lymph node dissection, final path pending History of hypertension Hyperlipidemia SVT status post ablation Hypothyroid Hiatal hernia status post repair in 2021 Previous tobacco dependence Plan: Continue chest tube placed to waterseal, monitor for airleak resolution Encourage incentive spirometry use 10 times every hour while awake. Bronchodilators per pulmonology Will monitor daily labs and x-rays Increase activity as tolerated Continue home medications Pain control per current medication regimen GI/DVT prophylaxis More recommendations to follow
--- NOTE | 2024-09-07 09:04 | XR ---
EXAMINATION TYPE: XR chest 2V DATE OF EXAM: 09/07/2024 6:36 AM COMPARISON: 09/06/2024 CLINICAL INDICATION: Female, 79 years old with history of Post left upper lobectomy, TECHNIQUE: XR chest 2V view(s) obtained. FINDINGS: The heart size is normal. Mild shift of mediastinum towards the left post left lobectomy. The pulmonary vasculature is normal. The lungs are clear. Mom on the left apical pneumothorax is present. Left-sided chest tube remains i n position. IMPRESSION: 1. Minimal left apical pneumothorax. Left-sided chest tube position [facility], , 09/07/2024 9:02 AM
[2024-09-07] MEDS: MAGNESIUM HYDROXIDE 2,400 MG/30 ML CUP PO ONE (09:11)
[2024-09-07] MEDS: bisacodyL 10 MG SUPP RECTAL SCH (09:11)
[2024-09-07 09:15] LABS: HCT 30.6 % (34.0-46.0); HGB 9.6 gm/dL (11.4-16.0); Hypochromasia Moderate; MCHC 31.3 g/dL (31.0-37.0); MCV 102.3 fL (80.0-100.0); Macrocytosis Moderate; Mean Platelet Volume 7.3; Platelet Count 292 k/uL (150-450); RBC 2.99 m/uL (3.80-5.40); RDW 17.5 % (11.5-15.5); WBC 5.6 k/uL (3.8-10.6)
[2024-09-07 09:16] LABS: Anisocytosis Slight
[2024-09-07 09:33] LABS: African American GFR (CKD) 88 (>60 ml/min/1.73 sqM); Anion Gap 7 mmol/L; Blood Urea Nitrogen 6 mg/dL (7-17); Calcium 9.3 mg/dL (8.4-10.2); Carbon Dioxide 28 mmol/L (22-30); Chloride 103 mmol/L (98-107); Glucose 89 mg/dL (74-99); Non-African American GFR(CKD) 76 (>60 ml/min/1.73 sqM); Potassium 4.2 mmol/L (3.5-5.1); Sodium 138 mmol/L (137-145)
--- NOTE | 2024-09-07 15:58 | P.PN ---
Subjective Progress Note Date: 09/07/24 Principal diagnosis: Malignant neoplasm. 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 She is status post chemotherapy. She is currently on Keytruda. She was brought in today electively for a left upper lobectomy with mediastinal dissection of lymph nodes. Operative chest x-ray reveals volume loss in the left Carter thorax with left-sided chest tube in place. No appreciable pneumothorax. White count 4.1. Hemoglobin 9.6. Platelets 338. He is seen in consultation on the selective care unit. She is currently resting in bed. Still somewhat drowsy from anesthesia. She is arousable. Continue good O2 saturations up to 100% on 3 L/min per nasal cannula. She is afebrile. Hemodynamically stable. Denies any significant chest discomfort at this time. There is a positive leak noted in the Pleur-evac. Currently to wall suction. She will be educated regarding the use of the incentive spirometer. Dilators have been ordered. Lactated Ringer's at 50 mL/h. Heparin for DVT prophylaxis. Receiving cefazolin. Family is at the bedside. Patient was seen today on 09/04/2024, patient is doing well, she is status post surgery as noted above, does not seem to be in any distress, patient is on room air, chest tube is already on waterseal, patient is achieving about 1000 cc on her incentive spirometry, patient is doing great, and doing as well as expected. WBC count is 5 hemoglobin 8.6 basic metabolic profile is normal renal profile is normal Seen today on 09/05/2024 patient is now postoperative day #2, she had assisted t horacoscopic left upper lobectomy and mediastinal lymph node dissection patient is doing great, on room air, not in any distress, achieving over 1000 cc on her incentive spirometry continues to have chest tube in place on waterseal, minimal air leak noted. X-ray showed no evidence of pneumothorax, adequate placement of the chest tube, pain is under control, patient denies any cough wheezing or sh ortness of breath. Seen today on 09/06/2024, patient is now postoperative day #3. Doing well, comf ortable, not in distress, on room air. Chest x-ray continues to show left sided chest tube in place, and there is a trace of apical pneumothorax. Patient is not in any distress, continues to have some minimal air leak upon coughing. Ambulating doing well with incentive spirometry, hemodynamically stable, on room air and O2 saturation is in the 90s. Progress note dated September 07, 2024. 79-year-old female seen today in room 373. She is sitting on the edge of her bed. She is comfortable in no distress. She is currently on room air. She is not receiving any IV fluids. She is postoperative day #4. Left-sided chest tube remains in place. There is a small leak noted. Labs include a white count 5.6, hemoglobin 9.6, hematocrit 30.6, and a platelet count of 292,000. Sodium 138, potassium 4.2, chlorides 103, CO2 28, BUN 6, and creatinine 0.76. Glucose is 89. Calcium is 9.3. X-ray reveals a minimal left apical pneumothorax. Objective - Vital Signs Vital signs: Vital Signs Temp 98.1 F 09/07/24 11:59 Pulse 88 09/07/24 12:48 Resp 20 09/07/24 11:59 BP 134/74 09/07/24 11:59 Pulse Ox 93 L 09/07/24 11:59 FiO2 Intake & Output 09/06/24 09/07/24 09/07/24 18:59 06:59 18:59 Intake Total 470 20 760 Output Total 1460 40 1000 Balance -990 -20 -240 Weight 49.8 kg Intake: IV 20 20 Invasive Line 2 20 20 Oral 450 760 Output: Chest Tube Drainage 10 40 0 Left 10 40 0 Urine 1450 1000 Other: Voiding Method Toilet Toilet # Voids 1 - Exam No acute distress, oriented 3. HEENT examination is grossly unremarkable. Mucous membranes are moist. No oral lesions. Neck supple. Full range of motion. No adenopathy thyromegaly or neck vein distention. Cardiovascular examination reveals regular rhythm rate. S1-S2 normal. No S3 or S4. No discernible murmur noted. Lungs reveal clear breath sounds. Breath sounds are equal bilaterally. No adventitious lung sounds including wheezes rhonchi or crackles. Left-sided chest tube is noted. Abdomen soft bowel sounds are heard. No masses or tenderness. Extremities are intact. No cyanosis clubbing or edema. Skin is without rash or lesion. Neurologic examination is brief but nonfocal. - Labs CBC & Chem 7: 09/07/24 08:48 09/07/24 08:48 Labs: Abnormal Lab Results - Last 24 Hours (Table) 09/07/24 09/07/24 Range/Units 08:48 08:48 RBC 2.99 L (3.80-5.40) m/uL Hgb 9.6 L (11.4-16.0) gm/dL Hct 30.6 L (34.0-46.0) % MCV 102.3 H (80.0-100.0) fL RDW 17.5 H (11.5-15.5) % BUN 6 L (7-17) mg/dL Assessment and Plan Assessment: Upper lobe adenocarcinoma, status post induction chemotherapy, followed by robotically assisted thoracoscopic left upper lobectomy, and mediastinal lymph node dissection, postop day #4. History of essential hypertension. Hyperlipidemia. SVT,S/P ablation. Hypothyroidism. Hiatal hernia, status post repair, 2021. Previous tobacco dependence. Plan: Plan dated September 07, 2024. The patient continues to be followed by cardiothoracic surgery. The left chest tube remains in place. There is a small leak noted, when the patient takes a deep breath, and when she coughs. Labs, x-rays, and medications are reviewed. We recommend ongoing use of the incentive spirometer. Prognosis is guarded. S he continues on GI and DVT prophylaxis. A minimal left apical pneumothorax is noted on today's chest x-ray. Time with Patient: Less than 30
--- NOTE | 2024-09-08 07:11 | XR ---
EXAMINATION TYPE: XR chest 2V DATE OF EXAM: 09/08/2024 6:41 AM COMPARISON: 09/07/2024 CLINICAL INDICATION: Female, 79 years old with history of post left upper lobectomy, TECHNIQUE: XR chest 2V view(s) obtained. FINDINGS: The heart size is normal. The pulmonary vasculature is normal. The lungs are clear. Previous minimal left apical pneumothorax not identified on current exam. Left- sided chest tube remains in position. IMPRESSION: 1. No acute pulmonary process. 2. No pneumothorax identified. Left-sided chest tube remains in position. [facility], , 09/08/2024 7:08 AM
--- NOTE | 2024-09-08 07:26 | P.PN ---
Subjective Progress Note Date: 09/08/24 Principal diagnosis: Advanced carcinoma of lung left upper lobe, biopsy-proven adenocarcinoma status post induction chemotherapy. Previous medical history of hypertension, hyperli pidemia, SVT status post ablation, hypothyroid, hiatal hernia status post repair in 2021, previous tobacco dependence POD #5 robotic assisted thoracoscopic left upper lobectomy with mediastinal lymph node dissection. The patient was seen and examined this morning sitting up in recliner on the cardiac stepdown unit in no acute distress. She remains in sinus rhythm, hemodynamically stable. Currently on room air with oxygen saturation in the mid 90s, able to achieve 1500 mL on her incentive spirometry. Left pleural chest tube present to water seal, no air leak present this morning. Chest x-ray reviewed. States pain is controlled on current medication regimen. Has been ambulatory in the hallway. No other new concerns. Objective - Vital Signs Vital signs: Vital Signs Temp 97.9 F 09/08/24 04:00 Pulse 91 09/08/24 04:00 Resp 20 09/08/24 04:00 BP 126/72 09/08/24 04:00 Pulse Ox 95 09/08/24 04:00 FiO2 Intake & Output 09/07/24 09/08/24 09/08/24 18:59 06:59 18:59 Intake Total 760 20 Output Total 1000 30 Balance -240 -10 Weight 48.7 kg Intake: IV 20 Invasive Line 2 20 Oral 760 Output: Chest Tube Drainage 0 30 Left 0 30 Urine 1000 Other: Voiding Method Toilet - Exam CONSTITUTIONAL: Appears comfortable, cooperative, no acute distress RESPIRATORY: Lungs sounds clear. Respirations even, nonlabored. Currently on room air with oxygen saturation 95%. Able to achieve 1500 mL on incentive spirometry. Strong cough. CARDIOVASCULAR: S1, S2 present. Regular rate and rhythm, sinus rhythm on telemetry. Palpable peripheral pulses bilaterally. No edema present. No calf pain or tenderness noted. SCDs present. GASTROINTESTINAL: Abdomen soft, nontender, nondistended. Active bowel sounds present 4 quadrants. Tolerating diet. Positive flatus GENITOURINARY: Continues to void INTEGUMENTARY: Skin is warm and dry with evidence of good perfusion NEUROLOGIC: Cranial nerves II through XII intact MUSKULOSKELETAL: Able to move all extremities, strength equal bilaterally, gait normal PSYCHIATRIC: Alert and oriented to person place and time, appropriate affect, intact judgment and insight INVASIVE LINES AND TUBES: Left pleural chest tube present to waterseal, no air leak present, 100 mL serosanguineous drainage in the last 24 hours - Allied health notes Allied health notes reviewed: nursing - Labs CBC & Chem 7: 09/07/24 08:48 09/07/24 08:48 Labs: Abnormal Lab Results - Last 24 Hours (Table) 09/07/24 09/07/24 Range/Units 08:48 08:48 RBC 2.99 L (3.80-5.40) m/uL Hgb 9.6 L (11.4-16.0) gm/dL Hct 30.6 L (34.0-46.0) % MCV 102.3 H (80.0-100.0) fL RDW 17.5 H (11.5-15.5) % BUN 6 L (7-17) mg/dL - Imaging and Cardiology Chest x-ray: report reviewed, image reviewed Assessment and Plan Assessment: Advanced carcinoma of lung left upper lobe, biopsy-proven adenocarcinoma status post induction chemotherapy, status post robotic assisted thoracoscopic left upper lobectomy with mediastinal lymph node dissection, final path demonstrates no residual malignancy, [id number] History of hypertension Hyperlipidemia SVT status post ablation Hypothyroid Hiatal hernia status post repair in 2021 Previous tobacco dependence Plan: Will discontinue chest tube. Repeat CXR in the morning Encourage incentive spirometry use 10 times every hour while awake. Bronchodilators per pulmonology Will monitor daily labs and x-rays Increase activity as tolerated Continue home medications Pain control per current medication regimen GI/DVT prophylaxis Discharge planning in progress. If CXR stable in the AM will DC to home tomorrow More recommendations to follow
[2024-09-08] MEDS: IBUPROFEN 600 MG TAB PO PRN (15:08)
--- NOTE | 2024-09-08 15:21 | P.PN ---
Subjective Progress Note Date: 09/08/24 Principal diagnosis: Malignant neoplasm. 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 She is status post chemotherapy. She is currently on Keytruda. She was brought in today electively for a left upper lobectomy with mediastinal dissection of lymph nodes. Operative chest x-ray reveals volume loss in the left Carter thorax with left-sided chest tube in place. No appreciable pneumothorax. White count 4.1. Hemoglobin 9.6. Platelets 338. He is seen in consultation on the selective care unit. She is currently resting in bed. Still somewhat drowsy from anesthesia. She is arousable. Continue good O2 saturations up to 100% on 3 L/min per nasal cannula. She is afebrile. Hemodynamically stable. Denies any significant chest discomfort at this time. There is a positive leak noted in the Pleur-evac. Currently to wall suction. She will be educated regarding the use of the incentive spirometer. Dilators have been ordered. Lactated Ringer's at 50 mL/h. Heparin for DVT prophylaxis. Receiving cefazolin. Family is at the bedside. Patient was seen today on 09/04/2024, patient is doing well, she is status post surgery as noted above, does not seem to be in any distress, patient is on room air, chest tube is already on waterseal, patient is achieving about 1000 cc on her incentive spirometry, patient is doing great, and doing as well as expected. WBC count is 5 hemoglobin 8.6 basic metabolic profile is normal renal profile is normal Seen today on 09/05/2024 patient is now postoperative day #2, she had assisted t horacoscopic left upper lobectomy and mediastinal lymph node dissection patient is doing great, on room air, not in any distress, achieving over 1000 cc on her incentive spirometry continues to have chest tube in place on waterseal, minimal air leak noted. X-ray showed no evidence of pneumothorax, adequate placement of the chest tube, pain is under control, patient denies any cough wheezing or sh ortness of breath. Seen today on 09/06/2024, patient is now postoperative day #3. Doing well, comf ortable, not in distress, on room air. Chest x-ray continues to show left sided chest tube in place, and there is a trace of apical pneumothorax. Patient is not in any distress, continues to have some minimal air leak upon coughing. Ambulating doing well with incentive spirometry, hemodynamically stable, on room air and O2 saturation is in the 90s. Progress note dated September 07, 2024. 79-year-old female seen today in room 373. She is sitting on the edge of her bed. She is comfortable in no distress. She is currently on room air. She is not receiving any IV fluids. She is postoperative day #4. Left-sided chest tube remains in place. There is a small leak noted. Labs include a white count 5.6, hemoglobin 9.6, hematocrit 30.6, and a platelet count of 292,000. Sodium 138, potassium 4.2, chlorides 103, CO2 28, BUN 6, and creatinine 0.76. Glucose is 89. Calcium is 9.3. X-ray reveals a minimal left apical pneumothorax. Progress note dated September 08, 2024. 79-year-old female seen today in room 373. The patient is standing in the room, and is very happy, because the chest tube, has been removed. She is on room air. She is not receiving any IV fluids. She has no complaints. The patient says that she is hoping to be discharged home, tomorrow, September 09. No new labs today. Chest x-ray, after the chest tube has been removed, shows no acute process, and no pneumothorax. Objective - Vital Signs Vital signs: Vital Signs Temp 98.6 F 09/08/24 15:03 Pulse 96 09/08/24 15:03 Resp 20 09/08/24 15:03 BP 136/63 09/08/24 15:03 Pulse Ox 95 09/08/24 15:03 FiO2 Intake & Output 09/07/24 09/08/24 09/08/24 18:59 06:59 18:59 Intake Total 760 20 900 Output Total 1000 30 900 Balance -240 -10 0 Weight 48.7 kg Intake: IV 20 Invasive Line 2 20 Oral 760 900 Output: Chest Tube Drainage 0 30 0 Left 0 30 0 Urine 1000 900 Other: Voiding Method Toilet Toilet - Exam No acute distress, oriented 3. HEENT examination is grossly unremarkable. Mucous membranes are moist. No oral lesions. Neck supple. Full range of motion. No adenopathy thyromegaly or neck vein distention. Cardiovascular examination reveals regular rhythm rate. S1-S2 normal. No S3 or S4. No discernible murmur noted. Lungs reveal clear breath sounds. Breath sounds are equal bilaterally. No adventitious lung sounds including wheezes rhonchi or crackles. Abdomen soft bowel sounds are heard. No masses or tenderness. Extremities are intact. No cyanosis clubbing or edema. Skin is without rash or lesion. Neurologic examination is brief but nonfocal. - Labs CBC & Chem 7: 09/07/24 08:48 09/07/24 08:48 Assessment and Plan Assessment: Upper lobe adenocarcinoma, status post induction chemotherapy, followed by robotically assisted thoracoscopic left upper lobectomy, and mediastinal lymph node dissection, postop day #5. History of essential hypertension. Hyperlipidemia. SVT,S/P ablation. Hypothyroidism. Hiatal hernia, status post repair, 2021. Previous tobacco dependence. Plan: Plan dated September 07, 2024. The patient continues to be followed by cardiothoracic surgery. The left chest tube remains in place. There is a small leak noted, when the patient takes a deep breath, and when she coughs. Labs, x-rays, and medications are reviewed. We recommend ongoing use of the incentive spirometer. Prognosis is guarded. She continues on GI and DVT prophylaxis. A minimal left apical pneumothorax is noted on today's chest x-ray. Plan dated September 08, 2024. The patient is seen today in room 373. The patient is very pleased because the chest tube, has been removed. The post chest tube removal chest x-ray, does not show any acute pulmonary process, or left-sided pneumothorax. Labs, x-rays, and medications are reviewed. We will continue to follow. Prognosis is guarded. Hopeful discharge in the next 24 hours. Time with Patient: Less than 30
[2024-09-08] MEDS: HYDROcodone/APAP 5-325MG 1 EACH TAB PO PRN (16:39)
[2024-09-09 04:01] VITALS: RESP 16
[2024-09-09] MEDS ORDERED: bisacodyL 10 MG SUPP RECTAL PRN (05:39)
--- NOTE | 2024-09-09 08:16 | P.DS ---
Providers Date of admission: 09/03/24 06:02 Expected date of discharge: 09/09/24 Attending physician: Malachi Keith Consults: 09/03/24 11:28 Consult Physician Routine Consulting Provider: Sher Boston Reason/Comments: post lobectomy Do you want consulting provider notified?: Already Contacted [facility] Course: FINAL DIAGNOSIS: Advanced carcinoma of lung left upper lobe, biopsy-proven adenocarcinoma status post induction chemotherapy, final path demonstrates no residual malignancy, [id number] History of hypertension Hyperlipidemia SVT status post ablation Hypothyroid Hiatal hernia status post repair in 2021 Previous tobacco dependence PRINCIPAL PROCEDURE: Robotic assisted thoracoscopic left upper lobectomy with mediastinal lymph node dissection HISTORY OF PRESENT ILLNESS: This is a 79-year-old female who follows outpatient with Dr Mcdermott for primary care, Dr. John for pulmonology, and Dr. Faust for oncology. She had a screening CT of the chest completed in early April 2024 demonstrating a mass in the left upper lobe of the lung with secondary mass near the hilum also in the left upper lobe. PET scanning was completed which demonstrated uptake in the lung mass with high SUV, lower SUV in the hilar mass, as well as some SUV uptake in the hilum itself. There was no evidence of distal metastasis. She underwent bronchoscopy with diagnosis of the lung mass and final pathology demonstrating non-small cell carcinoma. She was referred to Dr. Keith for recommendations. Following this she underwent induction chemotherapy with Dr. Faust, follow-up CT scan demonstrated near complete response. She again followed with Dr. Keith in the office with recommendations for left upper lobectomy. The usual perioperative course was discussed in detail with the patient and her family, all risks and benefits were explained, all questions were answered, and consent was obtained to proceed with surgery. She was sc heduled at the earliest possible date for elective lobectomy. HOSPITAL COURSE: The patient was brought to the hospital on 09/03/24, taken to the preoperative area, prepared in the usual fashion, and subsequently taken to the operating room where Dr. Keith performed robotic assisted thoracoscopic left upper lobectomy with mediastinal lymph node dissection. Upon completion of surgery the patient was extubated and taken to the recovery room for further monitoring. She was eventually admitted to 3 S. cardiac stepdown unit. She was monitored daily and once airleak was absent her chest tube was discontinued without incident. Follow-up chest x-ray was stable. Her oxygen was titrated down, she was tolerating oral diet, her pain was controlled, and she was ready to be discharged to home on postoperative day #6. She received written and verbal instruction regarding her medications, activity restrictions, signs and symptoms requiring physician notification, and follow-up appointments. Patient Condition at Discharge: Stable Plan - Discharge Summary Discharge Rx Participant: No New Discharge Prescriptions: New Loratadine [Claritin] 10 mg PO DAILY tab Ibuprofen [Motrin] 600 mg PO TID PRN tab PRN Reason: Pain HYDROcodone/APAP 5-325MG [Buda 5-325] 1 each PO Q6HR PRN #12 tab PRN Reason: Severe Breakthrough Pain Acetaminophen Tab [Tylenol] 650 mg PO Q4HR PRN tab PRN Reason: Mild Pain (Scale 1 To 3) Sennosides-Docusate Sodium [Senokot-S] 2 each PO HS PRN tab PRN Reason: Constipation Ondansetron Odt [Zofran Odt] 4 mg PO Q8HR PRN #12 tab PRN Reason: Nausea Continue Levothyroxine Sodium [Synthroid] 25 mcg PO QAM Oxybutynin Chloride 5 mg PO HS ALPRAZolam [Xanax] 0.5 mg PO BID PRN PRN Reason: Anxiety Losartan [Cozaar] 25 mg PO HS Atorvastatin [Lipitor] 20 mg PO HS Folic Acid 1 mg PO DAILY Pembrolizumab [Keytruda] 200 mg IV Q21D Discharge Medication List Levothyroxine Sodium [Synthroid] 25 mcg PO QAM 04/15/19 [History] ALPRAZolam [Xanax] 0.5 mg PO BID PRN 02/01/22 [History] Oxybutynin Chloride 5 mg PO HS 02/01/22 [History] Atorvastatin [Lipitor] 20 mg PO HS 09/27/23 [History] Folic Acid 1 mg PO DAILY 06/29/24 [History] Losartan [Cozaar] 25 mg PO HS 06/29/24 [History] Pembrolizumab [Keytruda] 200 mg IV Q21D 06/29/24 [History] Acetaminophen Tab [Tylenol] 650 mg PO Q4HR PRN tab 09/08/24 [Rx] HYDROcodone/APAP 5-325MG [Buda 5-325] 1 each PO Q6HR PRN #12 tab 09/08/24 [Rx] Ibuprofen [Motrin] 600 mg PO TID PRN tab 09/08/24 [Rx] Loratadine [Claritin] 10 mg PO DAILY tab 09/08/24 [Rx] Ondansetron Odt [Zofran Odt] 4 mg PO Q8HR PRN #12 tab 09/08/24 [Rx] Sennosides-Docusate Sodium [Senokot-S] 2 each PO HS PRN tab 09/08/24 [Rx] Follow up Appointment(s)/Referral(s): Malachi Keith MD [STAFF PHYSICIAN] - 09/17/24 2:15 pm Elton John MD [STAFF PHYSICIAN] - 09/21/24 9:30 am Ihsan Mcdermott MD [Primary Care Provider] - As Needed Aston Faust MD [STAFF PHYSICIAN] - 1 Week Activity/Diet/Wound Care/Special Instructions: DISCHARGE INSTRUCTIONS: 1. No driving for 2 weeks, or until physician gives their ok. 2. No lifting, pushing, or pulling more than 10 pounds for 2 weeks. The physician will advise of any restriction changes. 3. Continue pain control per as needed orders. Alternate acetaminophen (Tylenol) and ibuprofen (Motrin/Advil) for pain. 4. Continue with incentive spirometry and splinting until otherwise directed by the physician. 5. Leave chest tube dressing for 48 hours. After that, remove all dressings and shower daily. 6. Routine incision care. No powders, lotions, ointments on incisions. 7. Please call surgeon/IMPLEMENTATION SERVICES ANALYST for temp greater than 101 F or purulent drainage from incisions. 8. Smoking cessation counseling and program information provided. Quitting smoking is the most important step you can take to improve your health. For additional information and assistance to quit smoking, please call the [place] tobacco quit line (0-996-JQNP-NOW/ ) or online: [email or web address].gov/[email or web address]-[email or web address]/[email or web address]/[email or web address]/how-to-qu it-tobacco Discharge Disposition: HOME SELF-CARE
[2024-09-09 08:19] LABS: Anisocytosis Slight; HCT 28.6 % (34.0-46.0); Hypochromasia Moderate; MCH 32.4 pg (25.0-35.0); MCHC 31.4 g/dL (31.0-37.0); MCV 103.3 fL (80.0-100.0); Macrocytosis Moderate; Mean Platelet Volume 7.3; Platelet Count 284 k/uL (150-450); RBC 2.77 m/uL (3.80-5.40); RDW 17.3 % (11.5-15.5); WBC 4.5 k/uL (3.8-10.6)
[2024-09-09 08:38] LABS: African American GFR (CKD) 70 (>60 ml/min/1.73 sqM); Anion Gap 8 mmol/L; Blood Urea Nitrogen 13 mg/dL (7-17); Carbon Dioxide 25 mmol/L (22-30); Chloride 104 mmol/L (98-107); Glucose 99 mg/dL (74-99); Non-African American GFR(CKD) 61 (>60 ml/min/1.73 sqM); Potassium 4.4 mmol/L (3.5-5.1); Sodium 137 mmol/L (137-145)
[2024-09-09 09:24] VITALS: BP 145/72; PULSE 94; TEMP 98.1
--- NOTE | 2024-09-09 10:17 | XR ---
EXAMINATION TYPE: XR chest 2V DATE OF EXAM: 09/09/2024 6:31 AM COMPARISON: 09/08/2024 CLINICAL INDICATION: Female, 79 years old with history of post left upper lobectomy, TECHNIQUE: XR chest 2V view(s) obtained. FINDINGS: The heart size is normal. The pulmonary vasculature is normal. The lungs are clear. Left-sided Chest tube is been removed. No Pneumothorax evident. IMPRESSION: 1. No acute pulmonary process. No pneumothorax post chest tube removal [facility], Workstation: [email or web address], 09/09/2024 10:15 AM
== END 2024-09-09 09:47 | disposition home or self-care (01) | DRG 164 ==
LOC: 2ORMAIN 06:02 → 3SCARD 11:44
PROVIDERS: ADMIT Thoracic Surgery (Cardiothoracic Vascular Surgery); ATTEND Thoracic Surgery (Cardiothoracic Vascular Surgery)
PROC: 07B Lymphatic and Hemic Systems, Excision (ICD-10-PCS; 2024-09-03)
PROC: 0B9P40Z Drainage of Left Pleura with Drainage Device, Percutaneous Endoscopic Approach (ICD-10-PCS; 2024-09-03)
PROC: 8E0W4CZ Robotic Assisted Procedure of Trunk Region, Percutaneous Endoscopic Approach (ICD-10-PCS; 2024-09-03)
PROC: 3E0T3BZ Introduction of Anesthetic Agent into Peripheral Nerves and Plexi, Percutaneous Approach (ICD-10-PCS; 2024-09-03)
PROC: 0BTG4ZZ Resection of Left Upper Lung Lobe, Percutaneous Endoscopic Approach (ICD-10-PCS; principal; 2024-09-03 07:30)
DX: C34.12 Malignant neoplasm of upper lobe, left bronchus or lung (principal); J93.82 Other air leak; E78.5 Hyperlipidemia, unspecified; Z87.891 Personal history of nicotine dependence; E03.9 Hypothyroidism, unspecified; I10 Essential (primary) hypertension; Z79.890 Hormone replacement therapy; K44.9 Diaphragmatic hernia without obstruction or gangrene; M81.0 Age-related osteoporosis without current pathological fracture; Z79.899 Other long term (current) drug therapy; Z85.118 Personal history of other malignant neoplasm of bronchus and lung; Z87.442 Personal history of urinary calculi; Z90.710 Acquired absence of both cervix and uterus; Z92.21 Personal history of antineoplastic chemotherapy; Z98.42 Cataract extraction status, left eye; Z98.41 Cataract extraction status, right eye
CPT/HCPCS: 64999; 71045; 71046; 80048; 85025; 85027; 88305; 88309; 88312; 88331; 94640; 94760

== ENCOUNTER → 2024-10-05 | Outpatient (CLI) | payer MEDICARE ==
[2024-10-05 15:22] LABS: Basophils # (A) 0.03 X 10*3/uL (0.00-0.10); Basophils % (A) 0.3 %; Eosinophils # (A) 0.34 X 10*3/uL (0.04-0.35); Eosinophils % (A) 3.9 %; HCT 34.5 % (37.2-46.3); HGB 10.7 g/dL (12.0-15.0); Lymphocytes # (A) 3.08 X 10*3/uL (0.90-5.00); Lymphocytes % (A) 35.1 %; MCH 32.6 pg (27.0-32.0); MCV 105.2 FL (80.0-97.0); Monocytes # (A) 0.55 X 10*3/uL (0.20-1.00); Monocytes % (A) 6.3 %; NRBC Per 100 WBC 0 X 10*3/uL (0.00-0.01); Neutrophils # (A) 4.73 X 10*3/uL (1.80-7.70); Neutrophils % (A) 53.8 %; Platelet Count 280 X 10*3/uL (140-440); RBC 3.28 X 10*6/uL (4.10-5.20); RDW 13.6 % (11.5-14.5); WBC 8.78 X 10*3/uL (4.50-10.00)
[2024-10-05 15:48] LABS: Erythrocyte Sedimentation Rate 32 mm/Hr (0-30)
[2024-10-05 15:55] LABS: ALT 12 U/L (8-44); AST 25 U/L (13-35); Albumin 3.9 g/dL (3.8-4.9); Alkaline Phosphatase 77 U/L (41-126); BUN/Creat Ratio 8.57 Ratio (12.00-20.00); C Reactive Protein <0.30 mg/dL (0.00-0.80); Calcium 9.2 mg/dL (8.7-10.3); Carbon Dioxide 23.1 mmol/L (21.6-31.8); Chloride 112 mmol/L (96-109); Globulin 2.3 g/dL (1.6-3.3); Glucose 96 mg/dL (70-110); Potassium 4.5 mmol/L (3.5-5.5); Sodium 149 mmol/L (135-145); Total Bilirubin 0.2 mg/dL (0.3-1.2); Total Protein 6.2 g/dL (6.2-8.2)
== END | disposition home or self-care (01) ==
LOC: LABWHC1 11:40
PROVIDERS: ATTEND Internal Medicine
DX: J44.9 Chronic obstructive pulmonary disease, unspecified (principal); J06.9 Acute upper respiratory infection, unspecified
CPT/HCPCS: 36415; 80053; 85025; 85652; 86140

== ENCOUNTER → 2024-10-26 | Outpatient (CLI) | payer MEDICARE ==
[~2024-10-26] MED LIST changes: -LACTATED RINGERS 1,000 ML IV SCH; -LIDOCAINE 1% (10MG/ML) FOR IV START INTRADERMA PRN; +SODIUM CHLORIDE 0.9% 250 ML in EMPTY BAG 1 BAG IV PRN; +SODIUM CHLORIDE 0.9% 500 ML 500 ML in EMPTY BAG 1 BAG IV PRN
[2024-10-26 09:39] VITALS: BP 125/81; RESP 16
[2024-10-26 09:47] VITALS: PULSE 89; TEMP 98
[2024-10-26] MEDS: COSYNTROPIN 0.25 MG VIAL IVP NR (09:53)
== END ==
LOC: PROCWHC3 09:22
PROVIDERS: ATTEND Internal Medicine
DX: E27.40 Unspecified adrenocortical insufficiency (principal)
CPT/HCPCS: 82533; 82024; 96374; J0834

== ENCOUNTER → 2024-11-03 | Outpatient (CLI) | payer MEDICARE ==
[2024-11-03 14:52] LABS: African American GFR (CKD) >90 (>60 ml/min/1.73 sqM); Blood Urea Nitrogen 8 mg/dL (7-17); Non-African American GFR(CKD) 82 (>60 ml/min/1.73 sqM)
--- NOTE | 2024-11-04 06:45 | CT ---
EXAMINATION TYPE: CT abdomen pelvis w con DATE OF EXAM: 11/03/2024 HISTORY: Generalized abdominal pain and diarrhea. CT DLP: 747mGycm Automated Exposure Control for Dose Reduction was Utilized. CONTRAST: CT scan of the abdomen and pelvis is performed with oral and with IV Contrast, patient injected with 100ml mL of Isovue 300. COMPARISON: CT June 29, 2024 FINDINGS: LUNG BASES: No significant abnormality is appreciated. LIVER/GB: No significant abnormality is appreciated. PANCREAS: Moderate generalized atrophy redemonstrated. SPLEEN: No significant abnormality is seen. ADRENALS: No significant abnormality is seen. KIDNEYS: No significant abnormality is seen. BOWEL: There is air-fluid level and dilated distal esophagus. Surgical clip anterior to the diaphragm atic hiatus redemonstrated. Oral contrast reaches the level of the hepatic flexure. No abnormal small or large bowel dilatation. Sigmoid colonic diverticula without CT evidence for acute diverticulitis. UTERUS/ADNEXA: Uterus is surgically absent. LYMPH NODES: No greater than 1cm abdominal or pelvic lymph nodes are appreciated. OSSEOUS STRUCTURES: Stable severe grade 1 anterolisthesis L4 on L5. Advanced disc space narrowing and endplate sclerosis at the L4-L5 level. Multilevel facet arthropathy in the lower lumbar spine. OTHER: Mild calcified plaque of the aorta extends into branch vessels. IMPRESSION: No significant new or acute finding is seen to account for patient's clinical symptoms. P ersistent distal colonic diverticulosis without CT evidence for acute diverticulitis. Persistent Niss en fundoplication surgical change with dilated distal esophagus with air-fluid level. Correlate clini darren for symptoms of early satiety and vomiting. [facility], , 11/04/2024 6:42 AM
== END | disposition home or self-care (01) ==
LOC: RADCTMAIN 14:06
PROVIDERS: ATTEND Internal Medicine Hematology & Oncology
DX: Z03.89 Encounter for observation for other suspected diseases and conditions ruled out (principal); C34.12 Malignant neoplasm of upper lobe, left bronchus or lung; K22.89 Other specified disease of esophagus; K57.30 Diverticulosis of large intestine without perforation or abscess without bleeding; Z98.890 Other specified postprocedural states
CPT/HCPCS: 74177; 82565; 84520

== ENCOUNTER → 2024-12-18 | Outpatient (CLI) | payer MEDICARE ==
--- NOTE | 2024-12-18 22:28 | XR ---
EXAMINATION TYPE: XR femur LT DATE OF EXAM: 12/18/2024 3:44 PM COMPARISON: None. CLINICAL INDICATION: Female, 79 years old with history of M81.0 M54.16, pain TECHNIQUE: 2 view(s) obtained. FINDINGS: Femoral head articular to the acetabulum. Joint space has mild narrowing. No acute fracture or disloc ation evident. No joint effusion is identified. There is some calcification within the menisci of the knee. IMPRESSION: 1. No acute osseous abnormality left femur. [facility], , 12/18/2024 10:26 PM
--- NOTE | 2024-12-18 22:32 | XR ---
EXAMINATION TYPE: XR lumbosacral spine min 4V DATE OF EXAM: 12/18/2024 3:44 PM COMPARISON: None. CLINICAL INDICATION: Female, 79 years old with history of M81.0 M54.16, pain TECHNIQUE: 5 view(s) obtained. FINDINGS: There are 5 lumbar-type vertebral bodies. Pedicles are intact. There is scoliosis present. Degenerati ve disc changes are present 4 5. Grade 2 spondylolisthesis of L4 anteriorly on L5 is present. Facet d egenerative changes are present. IMPRESSION: 1. Grade 2 spondylolisthesis of L4 anterior to L5. 2. Loss of disc height at L4-5. 3. Facet degenerative changes. [facility], , 12/18/2024 10:29 PM
== END | disposition home or self-care (01) ==
LOC: RADXRMAIN 15:10
PROVIDERS: ATTEND Internal Medicine
DX: M51.16 Intervertebral disc disorders with radiculopathy, lumbar region (principal); M81.0 Age-related osteoporosis without current pathological fracture; M43.16 Spondylolisthesis, lumbar region; M47.26 Other spondylosis with radiculopathy, lumbar region
CPT/HCPCS: 72110

== ENCOUNTER → 2024-12-30 | Outpatient (CLI) | payer MEDICARE ==
[2024-12-30 15:08] LABS: African American GFR (CKD) 67 (>60 ml/min/1.73 sqM); Blood Urea Nitrogen 19 mg/dL (7-17); Non-African American GFR(CKD) 58 (>60 ml/min/1.73 sqM)
--- NOTE | 2024-12-30 15:59 | CT ---
CT chest with contrast HISTORY: Lung cancer progression. COMPARISON: 09-01. TECHNIQUE: Multiple axial images are obtained through the thorax following IV contrast administration . FINDINGS: There is been a left upper lobe lobectomy with marked volume loss on the left and shift of mediastinu m towards the left. There is no suspicious lung mass or nodule. There is no airspace consolidation or abnormal interstitial density. There is no pleural effusion or pneumothorax. The great vessels and chest are normal and there is no mediastinal, hilar or axillary adenopathy. Limited scanning through the upper abdomen reveals no gross abnormality. No focal osseous lesions are seen. IMPRESSION: 1. Left upper lobe lobectomy. 2. No evidence of recurrent or metastatic disease. 3. No acute cardiopulmonary disease. [facility], , 12/30/2024 3:56 PM
== END | disposition home or self-care (01) ==
LOC: RADCTMAIN 14:16
PROVIDERS: ATTEND Internal Medicine Hematology & Oncology
DX: C34.12 Malignant neoplasm of upper lobe, left bronchus or lung (principal); E78.5 Hyperlipidemia, unspecified; R19.7 Diarrhea, unspecified; M12.9 Arthropathy, unspecified; Z90.2 Acquired absence of lung [part of]
CPT/HCPCS: 82565; 84520; 71260; 36415; Q9967